=== PATIENT | female | born 1945 | race American Indian/Alaskan Native ===

== ENCOUNTER 2016-12-19 17:25 | Inpatient (IN) | payer MEDICARE ==
--- NOTE | 2016-12-19 17:34 | ED Physician Chart ---
Chief Complaint/HPI - Patient Information Date Seen:: 12/19/16 Time Seen:: 17:34 Chief Complaint:: low blood pressure History of Present Illness:: 71-year-old female history of CVA, brought in by daughter with acute, constant, severe, low blood pressure in the systolic 70s 2 days. Has some associated altered mental status. History limited patient has history of CVA and altered mental status and patient is an unreliable historian History provided by caregiver/daughter Historian:: Other (daughter/caregiver) Review:: Nurse's Note Reviewed Review of Systems - Review of Systems Other: Complete system review otherwise unremarkable except as noted in HPI. Past Medical History - Past Medical History Past Medical History: HTN, CVA/TIA Family History: None Social History: Non Smoker, No Alcohol, No Drug Use Surgical History: None Psychiatricy History: Dementia Medication: Reviewed Family Medical History - Family Member Mother Living Status: Hx Family Hypertension: Yes Physical Exam - Physical Examination Other:: INITIAL VITAL SIGNS: Reviewed by me GENERAL: Alert and interactive but confused. No acute distress HEAD: Head is normocephalic and atraumatic EYES: EOMI. . No scleral icterus. No conjunctival injection ENT: Moist mucous membranes. NECK: Supple. No masses. Full range of motion RESPIRATORY: No tachypnea. Clear breath sounds bilaterally. No wheezing, rales, or rhonchi CV: Regular rate and rhythm. No murmurs, rubs, or gallops ABDOMEN: Soft, non-distended, non-tender. No guarding. No rebound. No masses. EXTREMITIES: No deformity. No cyanosis. No edema. SKIN: Warm and dry. No obvious rashes. NEUROLOGIC: Alert and oriented. Face is symmetric. Speech is normal. Bilateral lower extremity semi- hemiplegia secondary with bilateral upper and lower gross sensory distally intact Labs/Radiology/EKG Results - Radiology Results Results: Single AP VIEW Portable Chest X-ray was interpreted independently and contemporaneously by Trisha Oswald MD: No cardiomegaly Normal mediastinum No lung infiltrates No pneumothorax No soft tissue or bony abnormalities - EKG Interpretations Comments:: 12-lead EKG Interpretation by Trisha Oswald MD: Normal Sinus Rhythm with ventricular rate of 82 beats per minute Normal axis Normal intervals No acute ST or T wave changes. No obvious STEMI ED Septic Shock - . Is Septic Shock (SBP<90, OR Lactate>4 mmol\L) present?: No Reassessment (Disposition) - Reassessment Reassessment:: Patient has severe dehydration. She has acute kidney failure. His leukocytosis and has been being treated for pneumonia however chest x-ray appears unremarkable. Given the patient's advanced age and core morbidities and discussed the case with the admitting physician about the dehydration and acute renal failure. She has a little associated altered level of consciousness. Patient to be admitted to Dr. Berger for further workup and treatment - Diagnosis Diagnosis:: Severe dehydration Acute renal failure Altered mental status Hypertension - Patient Disposition Discharge/Transfer:: Acute Care w/in this hosp Admitting Medical Physician:: Richar Berger Time:: 18:31 Condition at Disposition:: Stable
[2016-12-19] MEDS ORDERED: Sodium Chloride 0.9% 2,000 ML IV ONE (17:35)
[2016-12-19 18:05] LABS: HEMATOCRIT 35.4 % (35.0-45.0); HEMOGLOBIN 12.1 gm/dL (11.7-16.1); MEAN CELL VOLUME 84.6 fl (81-100); MEAN CORPUSCULAR HEMOGLOBIN 28.8 pg (27.0-31.0); MEAN PLATELET VOLUME 9.7 fl; PLATELET COUNT 136 Th/cmm (150-400); RED BLOOD COUNT 4.18 Mil/cmm (3.80-5.20); RED CELL DISTRIBUTION WIDTH 13.1 % (11.5-20.0)
[2016-12-19 18:16] LABS: INR 1.19 (0.5-1.4); PROTHROMBIN TIME (TEST) 12.5 SECONDS (9.5-11.5)
[2016-12-19 18:19] LABS: ALB/GLOB RATIO 0.8 (1.0-1.8); ALKALINE PHOSPHATASE 244 U/L (34-104); ANION GAP 12.7 (7.0-16.0); BILIRUBIN,TOTAL 0.4 mg/dL (0.3-1.0); BUN - UREA NITROGEN 79 mg/dL (7-25); BUN/CREATININE RATIO 25.5; CALCIUM SERUM 9.6 mg/dL (8.6-10.3); CARBON DIOXIDE 12.9 mEq/L (21.0-31.0); CHLORIDE 109 mEq/L (98-107); CREATININE - SERUM 3.1 mg/dL (0.6-1.2); GLUCOSE 112 mg/dL (70-105); POTASSIUM SERUM 4.6 mEq/L (3.5-5.1); SGOT 32 U/L (13-39); SGPT/ALT 38 U/L (7-52); SODIUM SERUM 130 mEq/L (136-145)
[2016-12-19] MEDS ORDERED: cefTRIAXone 1 GM in Sodium Chloride 0.9% 50 ML IV ONE (18:26)
[2016-12-19 18:29] LABS: NEUTROPHILS 71 % (40-80); TOTAL CELLS COUNTED 100
[2016-12-19 18:30] LABS: BAND NEUTROPHILE 2 % (0-10); PLATELET ESTIMATE SLIGHT DECREASED (NORMAL); PLATELET MORPHOLOGY GIANT PLATELETS SEEN (NORMAL)
[2016-12-19 19:01] LABS: URINE BILIRUBIN NEGATIVE (NEGATIVE); URINE BLOOD NEGATIVE (NEGATIVE); URINE COLOR YELLOW; URINE GLUCOSE (UA) NEGATIVE (NEGATIVE); URINE KETONE NEGATIVE (NEGATIVE); URINE PROTEIN 30 mg/dL (NEGATIVE); URINE UROBILINOGEN 0.2 E.U./dL (0.2 - 1.0)
[2016-12-19 19:02] LABS: URINE AMORPHOUS SEDIMENT MODERATE URATES (NONE SEEN); URINE BACTERIA FEW /hpf (NONE SEEN); URINE EPITHELIAL CELLS OCCASIONAL /lpf (FEW); URINE HYALINE CAST 0-2 /lpf (0-2); URINE RBC NONE SEEN /hpf (0-5); URINE WBC 0-2 /hpf (0-5)
[2016-12-19 20:37] VITALS: BP 99/53
[2016-12-19] MEDS ORDERED: Maalox 30 mL Cup PO PRN (20:43)
[2016-12-19] MEDS ORDERED: Magnesium Hydroxide (MOM) 30 mL UDC PO PRN (20:43)
[2016-12-19] MEDS ORDERED: Hydrocodone/APAP 5mg/325mg Tab PO PRN (20:43)
[2016-12-19] MEDS: D5-0.9%NS 1,000 ML IV SCH (21:27)
--- NOTE | 2016-12-19 21:48 | Admit Criteria Form ---
Admit Criteria Forms - Admit Criteria Diagnosis: DEHYDRATION Clinical Indications for Admission to Inpatient Care (Place 'X' for any and all applicable criteria): Admission is indicated for ANY ONE of the following (1)(2)(3)(4)(5): [X]I. Inpatient admission required rather than observation care (see Dehydration: Observation Care guideline as appropriate) because of ANY ONE of the following: [ ]a) Vomiting that is severe or persistent [X]b) Severe electrolyte abnormalities requiring inpatient care [ ]c) Hemodynamic instability [ ]d) IV fluid to replace significant ongoing losses (greater than 3 L/m2 per day (10) (11) [ ]e) Parenteral nutrition regimen that must be implemented on inpatient basis [X]f) Other condition,treatment or monitoring requiring inpatient admission [ ]II. Serious cause for dehydration requiring acute hospitalization (eg, bowel obstruction, increased intracranial pressure, infectious cause) Extended stay beyond goal length of stay may be needed for(1)(3 )(4)(17): [ ]a) Chronic severe dehydration [ ]b) Persistent vital sign changes, severe electrolyte imbalance, or diagnosed cause of dehydration that requires continued hospitalization (eg, bowel obstruction, increased intracranial pressure) [ ]c) Older patients (65 years or older) [ ]d) Severe comorbid illness (eg, renal failure, heart failure, poorly controlled diabetes) The original [employer] content created by [employer] has been revised. The portions of the content which have been revised are identified through the use of italic text or in bold, and [facility] has neither reviewed nor approved the modified material. All other unmodified content is copyright [facility]. Please see references footnoted in the original [facility] [employer] edition 2016 Admit Criteria Met?: Yes
--- NOTE | 2016-12-20 00:18 | History & Physical ---
CHIEF COMPLAINT: Low blood pressure. HISTORY OF PRESENT ILLNESS: The patient is a 71-year-old female who was referred to by our office. The patient brought to the ER by her daughter for acute constant severe low pressure within the systolics of 70s for last 2 days. The patient also has altered mental status. PAST MEDICAL HISTORY: Hypertension, CVA, dementia. PAST SURGICAL HISTORY: Negative. FAMILY HISTORY: Noncontributory. SOCIAL HISTORY: No reports of smoking, drinking or drug use. MEDICATIONS: See medication reconciliation form. ALLERGIES: No known allergies. PHYSICAL EXAMINATION: GENERAL: The patient is awake, alert, nontoxic in appearance. VITAL SIGNS: On admission, temperature 97.8, pulse of 80, blood pressure 93/55, respiration 17, O2 sat 97% on room air. HEENT: Normocephalic, atraumatic. Extraocular movements are intact. Pupils are equal. Oropharynx is clear. NECK: Supple. No thyromegaly. No lymphadenopathy. RESPIRATORY: Clear. No wheeze or rhonchi. CARDIOVASCULAR: S1, S2. No murmurs, rubs, or gallops. GASTROINTESTINAL: Soft, nontender, nondistended. Positive bowel sounds. GENITOURINARY: No suprapubic tenderness. Positive left CVA tenderness. BACK: No midline tenderness. EXTREMITIES: Equal pulses bilaterally. No cyanosis or clubbing. Positive contractures. PSYCHIATRIC: Negative. SKIN: Negative. NEUROLOGIC: Cranial nerves are intact. Extraocular movements intact. Sensation intact. Neurovascularly intact. The patient has semi-hemiplegia in bilateral lower extremities. LABORATORY DATA: Hematology: WBC 15.0, hemoglobin 12.1, hematocrit 35.4, platelet count of 136, 9% lymphocytes, 18% monocytes. PT 12.5, INR 1.19, PTT 36.3. Chemistry: Sodium 130, potassium 4.6, chloride 109, bicarbonate 12.9, anion gap 12.7, BUN 79, creatinine 3.1, GFR unavailable, glucose is 112. Lactic acid 1.13, calcium 9.6, total bilirubin 0.4, AST of 32, ALT 38, alkaline phosphatase 244, creatinine kinase 8, total protein 8.8, albumin 4.0, globulin 4.8. Urinalysis shows 30 protein and ____ hyaline casts. RADIOLOGY: No new results. ASSESSMENT: 1. Dehydration (severe). 2. Acute kidney injury. 3. Altered mental status. 4. Hypertension. 5. Leukocytosis. 6. Hyponatremia. 7. Hyperglycemia. 8. Transaminitis. 9. Cerebrovascular accident. 10. Dementia. PLAN: Continue current medications. Obtain labs in a.m. We will obtain Infectious Disease, Nephrology, Neurology, and physical therapy consultations. She is due for labs. Consultation needed. JOB# [id number]
[2016-12-20 07:36] LABS: ANION GAP 10.1 (7.0-16.0); BUN - UREA NITROGEN 60 mg/dL (7-25); BUN/CREATININE RATIO 28.6; CALCIUM SERUM 8.7 mg/dL (8.6-10.3); CARBON DIOXIDE 13.1 mEq/L (21.0-31.0); CHLORIDE 121 mEq/L (98-107); CREATININE - SERUM 2.1 mg/dL (0.6-1.2); GLUCOSE 130 mg/dL (70-105); POTASSIUM SERUM 4.2 mEq/L (3.5-5.1); SODIUM SERUM 140 mEq/L (136-145)
[2016-12-20 07:58] LABS: HEMOGLOBIN 10.3 gm/dL (11.7-16.1); MEAN CORPUSCULAR HEMOGLOBIN 28.7 pg (27.0-31.0); MEAN CORPUSCULAR HGB CONC 33.8 pg (28.0-36.0); MEAN PLATELET VOLUME 11.3 fl; PLATELET COUNT 114 Th/cmm (150-400); RED BLOOD COUNT 3.58 Mil/cmm (3.80-5.20); RED CELL DISTRIBUTION WIDTH 12.9 % (11.5-20.0)
[2016-12-20 08:43] LABS: HEMATOCRIT 30.4 % (35.0-45.0)
[2016-12-20] MEDS: D5-0.9%NS 1,000 ML IV SCH (08:45)
[2016-12-20 09:35] LABS: BAND NEUTROPHILE 6 % (0-10); NEUTROPHILS 55 % (40-80); PLATELET ESTIMATE DECREASED PLATELETS (NORMAL); PLATELET MORPHOLOGY GIANT PLATELETS SEEN (NORMAL); TOTAL CELLS COUNTED 100
--- NOTE | 2016-12-20 13:15 | Diagnostic Imaging Report ---
Portable chest x-ray History: Pain Allowing for portable technique the heart size is normal. No focal pulmonary parenchymal processes. No hilar or mediastinal abnormalities. Impression: No acute abnormalities.
--- NOTE | 2016-12-20 15:20 | Diagnostic Imaging Report ---
Renal ultrasound HISTORY: Abnormal renal function test The right kidney is normal in size (10.6 x 4.7 x 5.1 cm). No focal lesions. No hydronephrosis. The left kidney is normal in size (11.5 x 5.5 x 6.0 cm). No focal lesions. No hydronephrosis. No abnormality seen in the region of the urinary bladder. Patient was unable to void. (Volume equals 201.2 mL). IMPRESSION: 1. Negative exam of the kidneys 2. Patient was unable to void at the end of the examination with a urinary bladder volume of 201.2 mL.
--- NOTE | 2016-12-20 16:14 | Diagnostic Imaging Report ---
CT scan abdomen and pelvis without intravenous contrast HISTORY: Sepsis, abnormal renal function tests, fever Total DLP equals 508 CTDI equals 11.0 Axial sections were obtained from the xiphoid process down to the pubic symphysis. Limited sections of the lower chest demonstrate small bilateral pleural effusions The liver exhibits a normal size with a homogeneous parenchyma. No focal lesions. The spleen appears normal. No focal abnormality seen within the pancreas. Atherosclerotic vascular calcification is noted. Suggestion of a small aneurysm within the splenic hilar region. The adrenal glands appear normal. There is mild dilatation/hydronephrosis involving the right renal collecting system vascular calcification noted in the region of the renal hilum. The exam of the pelvis demonstrates preservation of normal fat planes. There is a normal size uterus. Hypodensity in the central region may be associated with an abnormal thickened endometrium. Clinical correlation needed. A pelvic ultrasound may be helpful. In addition, 1.0 cm focus is noted along the anterior uterine wall possibly related to fibroid formation. There are multiple calcifications within the pelvis. These appear to lie outside of the urinary tract and are most likely vascular. The largest measures proximally 9 mm and is situated in the right adnexal area. Again this appears to lie outside the urinary tract. If clinically indicated, a CT scan with intravenous contrast would provide for further assessment of the relationship to the distal right ureter. No free fluid in the pelvis. IMPRESSION: 1. Mild right-sided hydronephrosis. Etiology uncertain. Several small calcifications seen in the pelvis. The largest measures 9 mm and is situated in the right adnexal area. These appear to lie outside of the urinary tract. However, if clinically indicated, a scan following administration of intravenous contrast would provide further assessment of the relationship to the right ureter and more definitive exclusion of a calculus. 2. Atherosclerotic vascular changes 3. Hypodensity within a normal sized uterus that may be related to an abnormal thickened endometrium. A pelvic ultrasound exam would provide further assessment. 4. Suggestion of fibroid formation 5. Small bilateral pleural effusions
--- NOTE | 2016-12-20 16:52 | Consultation ---
ATTENDING: Richar Berger M.D. TRAVEL PHYSICAL THERAPIST: Alonso Smith M.D. REASON FOR CONSULTATION: Electrolyte imbalance and fluid management. HISTORY OF PRESENT ILLNESS: This is a 71-year-old female with past medical history of hypertension, who came in because of weakness and drowsiness. Two days prior to admission, the patient vomited twice. This was associated with watery diarrhea. She was noted by her daughter to have altered level of consciousness, generalized weakness and also hypotension. She was not able to eat or drink fluids and unable to replenish her sensible and insensible fluid losses. A few hours prior to admission, her daughter noted her to have low blood pressure. She then brought her mother to the Emergency Room. Her blood pressure at the Emergency Room was 93/54. Chest x-ray showed no acute disease but a white count of 15. She denied any kidney problem in the past. She came in with a BUN/creatinine of 79/3.1. She was maintained on IV fluids during this admission. Her BUN/creatinine then improved to 60/2.1. As mentioned, she was maintained on IV fluids and her BUN/creatinine improved to 60/2.1. She admitted to being thirsty. She denied any abdominal pain, fever/chills, dysuria, no hematuria. She stated that she has about 2-3 UTIs per year. PAST MEDICAL HISTORY: 1. Essential hypertension. 2. CVA without any residual effect. 3. Alzheimer dementia. PAST SURGICAL HISTORY: Status post cholecystectomy. CURRENT MEDICATIONS: She is currently on acetaminophen, [place], lorazepam, magnesium hydroxide, ondansetron, Rocephin, trazodone. ALLERGIES: No known drug allergies. SOCIAL HISTORY: No history of alcohol or tobacco use. 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 FAMILY HISTORY: Significant for diabetes in both her mother and father. REVIEW OF SYSTEMS: GENERAL: She came in complaining of generalized weakness. Appetite had also deteriorated. However, no fever, no chills. HEENT: Denied any headaches, no dizziness. Wears glasses due to poor vision. Visual acuity is also diminished due to age. CARDIORESPIRATORY: No chest pain, palpitations, diaphoresis or cough. She has a history of hypertension. GASTROINTESTINAL: She did have some nausea and vomiting twice. No abdominal pain, no melena, hematochezia. She did have watery diarrhea. ENDOCRINE: No history of diabetes or thyroid abnormalities. No dyslipidemia. MUSCULOSKELETAL: Multiple joint arthralgias. GENITOURINARY: No history of kidney failure in the past. However, she comes now with acute kidney injury. She did have frequent UTIs, approximately 2-3 per year. HEMATOLOGIC: She has moderate anemia. NEUROPSYCHIATRIC: No syncopal episode nor seizure activity. However, she did have altered level of consciousness per patient. No depression or anxiety. No seizure activity. No neuropathy. PHYSICAL EXAMINATION: GENERAL: The patient is alert, verbal, not in any form of distress. VITAL SIGNS: Her blood pressure is 108/51, pulse 80, temperature 97.8 degrees. SKIN: Poor turgor and warm. No rash, no jaundice appreciated. HEENT: Head normocephalic, atraumatic. Eyes: Extraocular muscles intact. Pupils equal, round, reactive to light and accommodates. Anicteric sclerae. Webb conjunctivae. Nose, midline nasal septum. Mouth: Dry mucosa with good dentition. NECK: Supple, no adenopathy, no thyromegaly, no bruits. Trachea palpated in the midline. CHEST AND CARDIOVASCULAR: S1, S2. No rub, murmur nor gallop appreciated. Point of maximal impulse fifth intercostal space, left midclavicular line. No abdominal or femoral bruits appreciated. LUNGS: Equal expansion. No use of accessory muscles. No supraclavicular retractions. Decreased breath sounds but clear to auscultation without any wheeze. BREASTS: Symmetrical, without any discharge. ABDOMEN: Flat, soft. Positive for bowel sounds. No bruits either diastolic or systolic. RECTAL: The patient refused. GENITOURINARY: Normal appearing female genitalia. MUSCULOSKELETAL: No effusions present in her joints with limited range of motion. No evidence of edema, cyanosis, no clubbing with palpable femoral, popliteal, dorsalis pedis pulses. NEUROLOGIC: The patient is alert, verbal, motor is 5/5. Cranial nerves 2-12 intact. Sensory intact. LABORATORY DATA: White count 12, hemoglobin 10.3, hematocrit 30.4 polys is 85%, platelets 114. Sodium is 140, potassium 4.2, chloride is 121, bicarbonate is 13, BUN is 60, creatinine at 2.1, glucose is 130, calcium 8.7. Albumin 4.0. IMPRESSION: 1. Acute kidney injury. The patient initially had prerenal azotemia. She had a history of nausea and vomiting twice as well as watery diarrhea. She was not able to replenish her fluid losses. There was a decrease in effective circulating volume, which led to progression of acute kidney injury to acute tubular injury. 2. History of diarrhea with nausea and vomiting, altered level of consciousness, and hypotension, possibly secondary to dehydration. 3. Recurrent urinary tract infection. 4. Alzheimer dementia. 5. History of cerebrovascular accident without residual effect. 6. Thrombocythemia, possibly medication induced, doubt disseminated intravascular coagulation. 7. ____ metabolic acidosis, possibly from diarrhea. PLAN: 1. Continue with IV fluids. 2. Urinalysis, urine C and S. 3. Urine eosinophils, creatinine and sodium. 4. Renal ultrasound. 5. Follow up electrolytes. 6. Continue with Rocephin. Thank you Dr. Berger for this consult, and I will follow the patient closely with you. JOB# [id number]
[2016-12-21 06:44] LABS: HEMATOCRIT 29.8 % (35.0-45.0); HEMOGLOBIN 10.3 gm/dL (11.7-16.1); MEAN CELL VOLUME 85.1 fl (81-100); MEAN CORPUSCULAR HEMOGLOBIN 29.4 pg (27.0-31.0); MEAN CORPUSCULAR HGB CONC 34.6 pg (28.0-36.0); MEAN PLATELET VOLUME 10.2 fl; PLATELET COUNT 113 Th/cmm (150-400); RED CELL DISTRIBUTION WIDTH 12.9 % (11.5-20.0)
[2016-12-21 07:06] LABS: ALB/GLOB RATIO 0.8 (1.0-1.8); ALKALINE PHOSPHATASE 166 U/L (34-104); ANION GAP 8.5 (7.0-16.0); BILIRUBIN,TOTAL 0.3 mg/dL (0.3-1.0); BUN - UREA NITROGEN 37 mg/dL (7-25); BUN/CREATININE RATIO 26.4; CALCIUM SERUM 8.7 mg/dL (8.6-10.3); CARBON DIOXIDE 13.8 mEq/L (21.0-31.0); CHLORIDE 119 mEq/L (98-107); CREATININE - SERUM 1.4 mg/dL (0.6-1.2); GLUCOSE 107 mg/dL (70-105); POTASSIUM SERUM 4.3 mEq/L (3.5-5.1); SGOT 16 U/L (13-39); SGPT/ALT 24 U/L (7-52); SODIUM SERUM 137 mEq/L (136-145)
[2016-12-21 07:49] LABS: WHITE BLOOD COUNT 13.2 Th/cmm (4.8-10.8)
[2016-12-21 08:14] LABS: BAND NEUTROPHILE 4 % (0-10); EOSINOPHIL 1 % (0-5); METAMYELOCYTE 1 % (0-0); NEUTROPHILS 58 % (40-80); TOTAL CELLS COUNTED 100
[2016-12-21 08:15] LABS: PLATELET ESTIMATE DECREASED PLATELETS (NORMAL)
[2016-12-21 08:16] LABS: PLATELET MORPHOLOGY GIANT PLATELETS SEEN (NORMAL)
--- NOTE | 2016-12-21 10:25 | Progress Notes ---
SUBJECTIVE: The patient is on IV antibiotics. The patient is on IV fluids. OBJECTIVE: VITAL SIGNS: Temperature 98.1, pulse 68, blood pressure 118/54, respiratory rate 18, O2 sat 94%. CARDIOVASCULAR: S1, S2. RESPIRATORY: Clear. GASTROINTESTINAL: Soft, positive bowel sounds. LABORATORY DATA: Hematology, WBC 12.0, hemoglobin 10.3, hematocrit 30.4, platelet count 114, 9% lymphocyte. ESR 51. Chemistry, sodium 140, potassium 4.2, chloride per labs, carbon dioxide 13.1, anion gap per labs, BUN 60, creatinine 2.1, glucose was 130, calcium 8.7. Urine sodium is 1, urine creatinine per labs. MICROBIOLOGY: Blood culture from December 19 pending. RADIOLOGY: Renal ultrasound shows negative exam of kidneys. The patient voided and examination with the urine, bladder volume 21.2. Abdominal and pelvic CT shows mild right-sided hydronephrosis, several small calcifications seen in pelvis, hypodensity with normal-sized uterus more thickened endometrium especially of fibroid formations. ASSESSMENT: 1. Leukocytosis and anemia. 2. Thrombocytopenia. 3. Acute kidney injury. 4. Hyperglycemia. 5. Hypertension. 6. Transaminitis, 7. Cerebrovascular accident. 8. Dementia. 9. Right-sided hydronephrosis. 10. Nephrolithiasis. 12. Possible fibroid. 13. Bilateral pleural effusions. PLAN: Continue current medications and treatment. Obtain labs in a.m. Awaiting for culture results. We will obtain CT abdomen with IV contrast. We will obtain pelvic ultrasound. JOB# [id number] [facility]
--- NOTE | 2016-12-21 11:29 | Diagnostic Imaging Report ---
Ultrasound abdomen HISTORY: Fever, status post cholecystectomy COMPARISON: CT abdomen and pelvis on 12/20/2016 Technique: Sonography of the abdomen was performed in multiple planes. FINDINGS: Exam is limited due to bowel gas. The visualized portions of the pancreas are grossly unremarkable. The visualized portions of the abdominal aorta within normal limits in size. The liver demonstrates normal echogenicity and measures 16.8 cm. The gallbladder was not visualized. The common bile duct measures 1 cm. The right kidney measures 10.6 x 4.6 cm. The left kidney measures 11.8 x 5.1 cm. No evidence of focal lesions or hydronephrosis. The spleen measures 8.9 cm. IMPRESSION: Nonvisualization of the gallbladder compatible with clinical history of cholecystectomy. Prominent common bile duct measuring up to 1 cm which may be related to patient's history of cholecystectomy. No evidence of hydronephrosis.
--- NOTE | 2016-12-21 14:10 | General Progress Note ---
Subjective - Review of Systems Service Date: 12/21/16 Subjective: more alert, eating better Objective - Results Result Diagrams: 12/21/16 05:44 12/21/16 05:50 Recent Labs: Laboratory Last Values WBC 13.2 Th/cmm (4.8-10.8) H 12/21/16 05:44 RBC 3.50 Mil/cmm (3.80-5.20) L 12/21/16 05:44 Hgb 10.3 gm/dL (11.7-16.1) L 12/21/16 05:44 Hct 29.8 % (35.0-45.0) L 12/21/16 05:44 MCV 85.1 fl (81-100) 12/21/16 05:44 MCH 29.4 pg (27.0-31.0) 12/21/16 05:44 MCHC Differential 34.6 pg (28.0-36.0) 12/21/16 05:44 RDW 12.9 % (11.5-20.0) 12/21/16 05:44 Plt Count 113 Th/cmm (150-400) L 12/21/16 05:44 MPV 10.2 fl 12/21/16 05:44 Band Neutrophils % 4 % (0-10) 12/21/16 05:44 Neutrophils (Manual) 58 % (40-80) 12/21/16 05:44 Lymphocytes 8 % (20-50) L 12/21/16 05:44 Monocytes 28 % (2-10) H 12/21/16 05:44 Eosinophils 1 % (0-5) 12/21/16 05:44 Metamyelocytes 1 % (0-0) H 12/21/16 05:44 Platelet Estimate DECREASED PLATELETS (NORMAL) 12/21/16 05:44 Platelet Morphology GIANT PLATELETS SEEN (NORMAL) 12/21/16 05:44 RBC Morph Micro Appear NORMAL (NORMAL) 12/21/16 05:44 ESR 54 mm/hr (0-30) H 12/21/16 05:44 Eos Smear Source URINE 12/20/16 17:00 Eos Smear Total Cells NONE SEEN (NONE SEEN) 12/20/16 17:00 PT 12.5 SECONDS (9.5-11.5) H 12/19/16 17:44 INR 1.19 (0.5-1.4) 12/19/16 17:44 PTT (Actin FS) 36.3 SECONDS (26.0-38.0) 12/19/16 17:44 Sodium 137 mEq/L (136-145) 12/21/16 05:50 Potassium 4.3 mEq/L (3.5-5.1) 12/21/16 05:50 Chloride 119 mEq/L (98-107) H 12/21/16 05:50 Carbon Dioxide 13.8 mEq/L (21.0-31.0) L 12/21/16 05:50 Anion Gap 8.5 (7.0-16.0) 12/21/16 05:50 BUN 37 mg/dL (7-25) H 12/21/16 05:50 Creatinine 1.4 mg/dL (0.6-1.2) H 12/21/16 05:50 Est GFR ( Amer) TNP 12/21/16 05:50 Est GFR (Non-Af Amer) TNP 12/21/16 05:50 BUN/Creatinine Ratio 26.4 12/21/16 05:50 Glucose 107 mg/dL (70-105) H 12/21/16 05:50 Whole Bld Lactic Acid 1.13 mmol/L (0.60-1.99) 12/19/16 17:44 Uric Acid 9.0 mg/dL (2.3-6.6) H 12/21/16 05:50 Calcium 8.7 mg/dL (8.6-10.3) 12/21/16 05:50 Total Bilirubin 0.3 mg/dL (0.3-1.0) 12/21/16 05:50 AST 16 U/L (13-39) 12/21/16 05:50 ALT 24 U/L (7-52) 12/21/16 05:50 Alkaline Phosphatase 166 U/L (34-104) H 12/21/16 05:50 Creatine Kinase 8 U/L (30-223) L 12/19/16 17:44 C-Reactive Protein 0.4 mg/dL (0.0-0.9) 12/20/16 06:05 Total Protein 7.1 gm/dL (6.0-8.3) 12/21/16 05:50 Albumin 3.2 gm/dL (3.7-5.3) L 12/21/16 05:50 Globulin 3.9 gm/dL 12/21/16 05:50 Albumin/Globulin Ratio 0.8 (1.0-1.8) L 12/21/16 05:50 Urine Source CATH 12/19/16 18:40 Urine Color YELLOW 12/19/16 18:40 Urine Clarity HAZY (CLEAR) 12/19/16 18:40 Urine pH 5.0 12/19/16 18:40 Ur Specific [place] 1.020 (1.005-1.030) 12/19/16 18:40 Urine Protein 30 mg/dL (NEGATIVE) H 12/19/16 18:40 Urine Glucose (UA) NEGATIVE mg/dL (NEGATIVE) 12/19/16 18:40 Urine Ketones NEGATIVE mg/dL (NEGATIVE) 12/19/16 18:40 Urine Blood NEGATIVE (NEGATIVE) 12/19/16 18:40 Urine Nitrate NEGATIVE (NEGATIVE) 12/19/16 18:40 Urine Bilirubin NEGATIVE (NEGATIVE) 12/19/16 18:40 Urine Urobilinogen 0.2 E.U./dL (0.2 - 1.0) 12/19/16 18:40 Ur Leukocyte Esterase NEGATIVE (NEGATIVE) 12/19/16 18:40 Urine RBC NONE SEEN /hpf (0-5) 12/19/16 18:40 Urine WBC 0-2 /hpf (0-5) 12/19/16 18:40 Ur Epithelial Cells OCCASIONAL /lpf (FEW) 12/19/16 18:40 Amorphous Sediment MODERATE URATES (NONE SEEN) 12/19/16 18:40 Urine Bacteria FEW /hpf (NONE SEEN) 12/19/16 18:40 Hyaline Casts 0-2 /lpf (0-2) H 12/19/16 18:40 Ur Random Sodium 101 mmol/L 12/20/16 17:00 Urine Creatinine 53.0 mg/dl (28.0-217.0) 12/20/16 17:00 - Physical Exam Vitals and I&O: Vital Signs Temp 98.2 F 12/21/16 04:00 Pulse 71 12/21/16 04:00 Resp 17 12/21/16 08:00 BP 108/66 12/21/16 04:00 Pulse Ox 96 12/21/16 04:00 Intake & Output 12/20/16 12/21/16 12/21/16 18:59 06:59 18:59 Intake Total 1050 150 100 Output Total 1 Balance 1050 149 100 Intake: Intake, IV Amount 1050 100 50 D5-0.9%Ns 1,000 ml @ 100 1000 mls/hr IV .Q10H [facility] Rx#: [id number] Piperacillin Sodium/ 50 100 50 Tazobact 3.375 gm In Sodium Chloride 0.9% 50 ml @ 100 mls/hr IV Q6HR [facility] Rx#:[id number] Oral 50 50 Output: Stool 1 Other: # Voids 1 3 # Bowel Movements 1 1 Active Medications: Current Medications Acetaminophen (Tylenol) 650 mg PO Q6H PRN PRN Reason: Mild Pain/Headache/T above 101 Stop: 02/17/17 20:42 Last Admin: 12/19/16 21:46 Dose: 650 mg Acetaminophen/Hydrocodone Bitart ([place] 10 Mg/325 Mg) 1 tab PO Q6H PRN PRN Reason: Pain (Severe) Stop: 02/17/17 20:42 Acetaminophen/Hydrocodone Bitart ([place] 5mg/325mg) 1 tab PO Q6H PRN PRN Reason: Moderate Pain Stop: 02/17/17 20:42 Last Admin: 12/19/16 23:17 Dose: 1 tab Al Hydrox/Mg Hydrox/Simethicone (Maalox) 30 ml PO Q6H PRN PRN Reason: Constipation Stop: 02/17/17 20:42 Dextrose/Sodium Chloride (D5-0.9%Ns) 1,000 mls @ 100 mls/hr IV .Q10H [facility] Stop: 02/17/17 20:59 Last Admin: 12/20/16 08:45 Dose: 100 mls/hr Piperacillin Sod/Tazobactam (Sod 3.375 gm/ Sodium Chloride) 50 mls @ 100 mls/ hr IV Q6HR [facility] Stop: 02/18/17 17:59 Last Infusion: 12/21/16 13:42 Dose: Infused Lorazepam (Ativan) 1 mg PO Q6H PRN; Protocol PRN Reason: Anxiety/Agitation Stop: 02/17/17 20:42 Magnesium Hydroxide (Milk Of Magnesia) 30 ml PO HS PRN PRN Reason: Constipation Stop: 02/17/17 20:42 Miscellaneous (Clinical Monitoring) 1 ea MC DAILY PRN PRN Reason: RENAL Stop: 02/18/17 09:26 Ondansetron HCl (Zofran Odt) 4 mg PO Q6H PRN PRN Reason: Nausea / Vomiting Stop: 02/17/17 20:42 Trazodone HCl (Desyrel) 100 mg PO HS PRN; Protocol PRN Reason: Insomnia Stop: 02/17/17 20:59 General: Alert, No acute distress HEENT: Atraumatic, Mucous membr. moist/pink Neck: Supple, +2 carotid pulse wo bruit Cardiovascular: Regular rate, Normal S1, Normal S2 Lungs: Clear to auscultation Abdomen: Bowel sounds, Soft Extremities: no Edema Neurological: Normal speech, Normal tone, Sensation intact Skin: no Rash Psych/Mental Status: Mood NL Assessment/Plan - Problem List Patient Problems: All Active Problems HYPOTENSIVE EPISODE AT HOME (Acute) - Assessment Assessment: TESSY Dehydration FTT recurrent UTI Alzheimer Dementia S/P CVA no residual Non gap Met acid Thrombocytopenia - Plan Plan: Lab - Result Diagrams 12/21/16 05:44 12/21/16 05:50 Current Medications Acetaminophen (Tylenol) 650 mg PO Q6H PRN PRN Reason: Mild Pain/Headache/T above 101 Stop: 02/17/17 20:42 Last Admin: 12/19/16 21:46 Dose: 650 mg Acetaminophen/Hydrocodone Bitart ([place] 10 Mg/325 Mg) 1 tab PO Q6H PRN PRN Reason: Pain (Severe) Stop: 02/17/17 20:42 Acetaminophen/Hydrocodone Bitart ([place] 5mg/325mg) 1 tab PO Q6H PRN PRN Reason: Moderate Pain Stop: 02/17/17 20:42 Last Admin: 12/19/16 23:17 Dose: 1 tab Al Hydrox/Mg Hydrox/Simethicone (Maalox) 30 ml PO Q6H PRN PRN Reason: Constipation Stop: 02/17/17 20:42 Dextrose/Sodium Chloride (D5-0.9%Ns) 1,000 mls @ 100 mls/hr IV .Q10H [facility] Stop: 02/17/17 20:59 Last Admin: 12/20/16 08:45 Dose: 100 mls/hr Piperacillin Sod/Tazobactam (Sod 3.375 gm/ Sodium Chloride) 50 mls @ 100 mls/ hr IV Q6HR [facility] Stop: 02/18/17 17:59 Last Infusion: 12/21/16 13:42 Dose: Infused Lorazepam (Ativan) 1 mg PO Q6H PRN; Protocol PRN Reason: Anxiety/Agitation Stop: 02/17/17 20:42 Magnesium Hydroxide (Milk Of Magnesia) 30 ml PO HS PRN PRN Reason: Constipation Stop: 02/17/17 20:42 Miscellaneous (Clinical Monitoring) 1 ea MC DAILY PRN PRN Reason: RENAL Stop: 02/18/17 09:26 Ondansetron HCl (Zofran Odt) 4 mg PO Q6H PRN PRN Reason: Nausea / Vomiting Stop: 02/17/17 20:42 Trazodone HCl (Desyrel) 100 mg PO HS PRN; Protocol PRN Reason: Insomnia Stop: 02/17/17 20:59 kidney fnc gradually improving w/BUN/CR of 37/1.4 continue hydration per staff eating 50% of meals encouraged po intake
--- NOTE | 2016-12-21 22:35 | Consultation ---
PRIMARY CARE PHYSICIAN: Dr. Richar Berger. REASON FOR CONSULTATION: Leukocytosis. This 71-year-old female was brought to the Emergency Room on the 12/19/2016, with complaint of low blood pressure for 48 hours. HISTORY OF PRESENT ILLNESS: The patient was found to have low blood pressure and the patient became very lethargic. The patient was seen in the ER and admitted to the hospital. Workup shows leukocytosis with increased renal failure. The patient was seen by renal and also because of leukocytosis, infectious consultation was called. PAST MEDICAL HISTORY: Hypertension and CVA. FAMILY HISTORY: Negative. REVIEW OF SYSTEMS: A 14-point review of systems negative except above. SOCIAL HISTORY: Nonsmoker. PHYSICAL EXAMINATION: GENERAL: The patient is alert and awake with the family. VITAL SIGNS: Temperature is 98, pulse 90, respirations 18 and blood pressure 99/53. HEENT: Mild pallor. No icterus or plaque. NECK: Supple. No JVD. No thyromegaly. LUNGS: Breath sounds bilateral vesicular. CARDIOVASCULAR: S1 and S2. ABDOMEN: Soft. Bowel sounds present. LYMPHATICS: No thyroid. No cervical lymph nodes. LABORATORY DATA: White count on admission was 15,000 and hemoglobin 12 grams. Creatinine 3.1. UA: A 0-2 wbc's and bacteria present. DIAGNOSES: Leukocytosis, urinary tract infection, renal failure, [id number], hypertension and history of cerebrovascular accident. PLAN: The patient started on Zosyn. Repeat labs tomorrow. Supportive care. Restart home medication except for antihypertensive. Rest of the care as ordered in CPOE. Thank you, Dr. Berger for this consultation. JOB# [id number]
[2016-12-21] MEDS: D5-0.9%NS 1,000 ML IV SCH (23:39)
[2016-12-22 07:48] LABS: ANION GAP 9.6 (7.0-16.0); BUN - UREA NITROGEN 22 mg/dL (7-25); BUN/CREATININE RATIO 16.9; CALCIUM SERUM 8.4 mg/dL (8.6-10.3); CHLORIDE 118 mEq/L (98-107); CREATININE - SERUM 1.3 mg/dL (0.6-1.2); GLUCOSE 111 mg/dL (70-105); MAGNESIUM 1.5 mg/dL (1.9-2.7); PHOSPHOROUS 3.1 mg/dL (2.5-5.0); POTASSIUM SERUM 3.6 mEq/L (3.5-5.1); SODIUM SERUM 139 mEq/L (136-145)
[2016-12-22 08:02] LABS: HEMOGLOBIN 10.2 gm/dL (11.7-16.1)
[2016-12-22 08:05] LABS: HEMATOCRIT 29.3 % (35.0-45.0); MEAN CELL VOLUME 85.1 fl (81-100); MEAN CORPUSCULAR HEMOGLOBIN 29.7 pg (27.0-31.0); MEAN CORPUSCULAR HGB CONC 34.9 pg (28.0-36.0); MEAN PLATELET VOLUME 10.3 fl; PLATELET COUNT 100 Th/cmm (150-400); RED BLOOD COUNT 3.44 Mil/cmm (3.80-5.20); RED CELL DISTRIBUTION WIDTH 13.1 % (11.5-20.0)
[2016-12-22 08:26] LABS: WHITE BLOOD COUNT 16.7 Th/cmm (4.8-10.8)
[2016-12-22 08:39] LABS: BAND NEUTROPHILE 5 % (0-10); EOSINOPHIL 1 % (0-5); NEUTROPHILS 61 % (40-80); PLATELET ESTIMATE DECREASED PLATELETS (NORMAL); TOTAL CELLS COUNTED 100
[2016-12-22 08:40] LABS: PLATELET MORPHOLOGY GIANT PLATELETS SEEN (NORMAL)
--- NOTE | 2016-12-22 10:07 | Progress Notes ---
SUBJECTIVE: The patient is on IV antibiotics. The patient is on IV fluids. The patient receiving inpatient rehab therapy. PHYSICAL EXAMINATION: VITAL SIGNS: Temperature 97.9, pulse 69, blood pressure 120/68, respirations 18 and O2 saturation is 100% on room air. CARDIOVASCULAR: S1 and S2. RESPIRATORY: Clear. GASTROINTESTINAL: Soft. Positive bowel sounds. LABORATORY DATA: Hematology: WBC 13.2, hemoglobin 10.3, hematocrit 28.8, platelet count of 113, 8% lymphocytes and 28% monocytes. ESR is 54. Chemistry: Sodium 137, potassium 4.3, chloride 119, bicarbonate 30.8, anion gap 8.5, BUN 37, creatinine 0.4 and GFR unavailable, glucose 107 and calcium 8.7. Total bili 0.3, AST 16, ALT 24, alkaline phosphatase 166, total protein 7.1, albumin 3.2 and globulin 3.9. MICROBIOLOGY: Blood culture from December 19, shows no growth. MRSA screen from December 21 negative. RADIOLOGY: Abdominal ultrasound: No evidence of hydronephrosis. ASSESSMENT: 1. Leukocytosis. 2. Anemia. 3. Thrombocytopenia. 4. Acute kidney injury. 5. Hyperglycemia. 6. Hyperuricemia. 7. Hypoalbuminemia. 8. Hypertension. 9. Cerebrovascular accident. 10. Dementia. PLAN: Continue current medications and treatment. Obtain labs in a.m. Awaiting final culture results. Obtain Infectious Disease consultation. JOB# [id number]
--- NOTE | 2016-12-22 13:54 | General Progress Note ---
Subjective - Review of Systems Service Date: 12/22/16 Subjective: more alert, eating better per staff Objective - Results Result Diagrams: 12/22/16 06:40 12/22/16 06:40 Recent Labs: Laboratory Last Values WBC 16.7 Th/cmm (4.8-10.8) H D 12/22/16 06:40 RBC 3.44 Mil/cmm (3.80-5.20) L 12/22/16 06:40 Hgb 10.2 gm/dL (11.7-16.1) L 12/22/16 06:40 Hct 29.3 % (35.0-45.0) L 12/22/16 06:40 MCV 85.1 fl (81-100) 12/22/16 06:40 MCH 29.7 pg (27.0-31.0) 12/22/16 06:40 MCHC Differential 34.9 pg (28.0-36.0) 12/22/16 06:40 RDW 13.1 % (11.5-20.0) 12/22/16 06:40 Plt Count 100 Th/cmm (150-400) L 12/22/16 06:40 MPV 10.3 fl 12/22/16 06:40 Band Neutrophils % 5 % (0-10) 12/22/16 06:40 Neutrophils (Manual) 61 % (40-80) 12/22/16 06:40 Lymphocytes 8 % (20-50) L 12/22/16 06:40 Monocytes 25 % (2-10) H 12/22/16 06:40 Eosinophils 1 % (0-5) 12/22/16 06:40 Metamyelocytes 1 % (0-0) H 12/21/16 05:44 Platelet Estimate DECREASED PLATELETS (NORMAL) 12/22/16 06:40 Platelet Morphology GIANT PLATELETS SEEN (NORMAL) 12/22/16 06:40 RBC Morph Micro Appear NORMAL (NORMAL) 12/22/16 06:40 ESR 61 mm/hr (0-30) H 12/22/16 06:40 Eos Smear Source URINE 12/20/16 17:00 Eos Smear Total Cells NONE SEEN (NONE SEEN) 12/20/16 17:00 PT 12.5 SECONDS (9.5-11.5) H 12/19/16 17:44 INR 1.19 (0.5-1.4) 12/19/16 17:44 PTT (Actin FS) 36.3 SECONDS (26.0-38.0) 12/19/16 17:44 Sodium 139 mEq/L (136-145) 12/22/16 06:40 Potassium 3.6 mEq/L (3.5-5.1) 12/22/16 06:40 Chloride 118 mEq/L (98-107) H 12/22/16 06:40 Carbon Dioxide 15.0 mEq/L (21.0-31.0) L 12/22/16 06:40 Anion Gap 9.6 (7.0-16.0) 12/22/16 06:40 BUN 22 mg/dL (7-25) 12/22/16 06:40 Creatinine 1.3 mg/dL (0.6-1.2) H 12/22/16 06:40 Est GFR ( Amer) TNP 12/22/16 06:40 Est GFR (Non-Af Amer) TNP 12/22/16 06:40 BUN/Creatinine Ratio 16.9 12/22/16 06:40 Glucose 111 mg/dL (70-105) H 12/22/16 06:40 Whole Bld Lactic Acid 1.13 mmol/L (0.60-1.99) 12/19/16 17:44 Uric Acid 9.0 mg/dL (2.3-6.6) H 12/21/16 05:50 Calcium 8.4 mg/dL (8.6-10.3) L 12/22/16 06:40 Phosphorus 3.1 mg/dL (2.5-5.0) 12/22/16 06:40 Magnesium 1.5 mg/dL (1.9-2.7) L 12/22/16 06:40 Total Bilirubin 0.3 mg/dL (0.3-1.0) 12/21/16 05:50 AST 16 U/L (13-39) 12/21/16 05:50 ALT 24 U/L (7-52) 12/21/16 05:50 Alkaline Phosphatase 166 U/L (34-104) H 12/21/16 05:50 Creatine Kinase 8 U/L (30-223) L 12/19/16 17:44 C-Reactive Protein 0.5 mg/dL (0.0-0.9) 12/22/16 06:40 Total Protein 7.1 gm/dL (6.0-8.3) 12/21/16 05:50 Albumin 3.2 gm/dL (3.7-5.3) L 12/21/16 05:50 Globulin 3.9 gm/dL 12/21/16 05:50 Albumin/Globulin Ratio 0.8 (1.0-1.8) L 12/21/16 05:50 Urine Source CATH 12/19/16 18:40 Urine Color YELLOW 12/19/16 18:40 Urine Clarity HAZY (CLEAR) 12/19/16 18:40 Urine pH 5.0 12/19/16 18:40 Ur Specific [place] 1.020 (1.005-1.030) 12/19/16 18:40 Urine Protein 30 mg/dL (NEGATIVE) H 12/19/16 18:40 Urine Glucose (UA) NEGATIVE mg/dL (NEGATIVE) 12/19/16 18:40 Urine Ketones NEGATIVE mg/dL (NEGATIVE) 12/19/16 18:40 Urine Blood NEGATIVE (NEGATIVE) 12/19/16 18:40 Urine Nitrate NEGATIVE (NEGATIVE) 12/19/16 18:40 Urine Bilirubin NEGATIVE (NEGATIVE) 12/19/16 18:40 Urine Urobilinogen 0.2 E.U./dL (0.2 - 1.0) 12/19/16 18:40 Ur Leukocyte Esterase NEGATIVE (NEGATIVE) 12/19/16 18:40 Urine RBC NONE SEEN /hpf (0-5) 12/19/16 18:40 Urine WBC 0-2 /hpf (0-5) 12/19/16 18:40 Ur Epithelial Cells OCCASIONAL /lpf (FEW) 12/19/16 18:40 Amorphous Sediment MODERATE URATES (NONE SEEN) 12/19/16 18:40 Urine Bacteria FEW /hpf (NONE SEEN) 12/19/16 18:40 Hyaline Casts 0-2 /lpf (0-2) H 12/19/16 18:40 Ur Random Sodium 101 mmol/L 12/20/16 17:00 Urine Creatinine 53.0 mg/dl (28.0-217.0) 12/20/16 17:00 - Physical Exam Vitals and I&O: Vital Signs Temp 97.5 F 12/22/16 12:00 Pulse 80 12/22/16 12:00 Resp 20 12/22/16 12:00 BP 116/58 12/22/16 12:00 Pulse Ox 96 12/22/16 12:00 Intake & Output 12/21/16 12/22/16 12/22/16 18:59 06:59 18:59 Intake Total 600 340 Balance 600 340 Intake: Intake, IV Amount 100 100 Piperacillin Sodium/ 100 100 Tazobact 3.375 gm In Sodium Chloride 0.9% 50 ml @ 100 mls/hr IV Q6HR [facility] Rx#:[id number] Oral 500 240 Other: # Voids 3 3 # Bowel Movements 1 Stool Characteristics Soft Active Medications: Current Medications Acetaminophen (Tylenol) 650 mg PO Q6H PRN PRN Reason: Mild Pain/Headache/T above 101 Stop: 02/17/17 20:42 Last Admin: 12/19/16 21:46 Dose: 650 mg Acetaminophen/Hydrocodone Bitart ([place] 10 Mg/325 Mg) 1 tab PO Q6H PRN PRN Reason: Pain (Severe) Stop: 02/17/17 20:42 Acetaminophen/Hydrocodone Bitart ([place] 5mg/325mg) 1 tab PO Q6H PRN PRN Reason: Moderate Pain Stop: 02/17/17 20:42 Last Admin: 12/19/16 23:17 Dose: 1 tab Al Hydrox/Mg Hydrox/Simethicone (Maalox) 30 ml PO Q6H PRN PRN Reason: Constipation Stop: 02/17/17 20:42 Piperacillin Sod/Tazobactam (Sod 3.375 gm/ Sodium Chloride) 50 mls @ 100 mls/ hr IV Q6HR [facility] Stop: 02/18/17 17:59 Last Admin: 12/22/16 12:03 Dose: 100 mls/hr Dextrose/Sodium Chloride (D5-0.9%Ns) 1,000 mls @ 60 mls/hr IV .[id number] [facility] Stop: 02/17/17 20:59 Lorazepam (Ativan) 1 mg PO Q6H PRN; Protocol PRN Reason: Anxiety/Agitation Stop: 02/17/17 20:42 Magnesium Hydroxide (Milk Of Magnesia) 30 ml PO HS PRN PRN Reason: Constipation Stop: 02/17/17 20:42 Miscellaneous (Clinical Monitoring) 1 ea MC DAILY PRN PRN Reason: RENAL Stop: 02/18/17 09:26 Ondansetron HCl (Zofran Odt) 4 mg PO Q6H PRN PRN Reason: Nausea / Vomiting Stop: 02/17/17 20:42 Trazodone HCl (Desyrel) 100 mg PO HS PRN; Protocol PRN Reason: Insomnia Stop: 02/17/17 20:59 General: Alert, No acute distress HEENT: Atraumatic, Mucous membr. moist/pink Neck: Supple, +2 carotid pulse wo bruit Cardiovascular: Regular rate, Normal S1, Normal S2 Lungs: Clear to auscultation Abdomen: Bowel sounds, Soft Extremities: no Edema Neurological: Sensation intact Skin: no Rash Psych/Mental Status: Mental status NL Assessment/Plan - Problem List Patient Problems: All Active Problems HYPOTENSIVE EPISODE AT HOME (Acute) - Assessment Assessment: TESSY Dehydration FTT recurrent UTI Alzheimer Dementia S/P CVA no residual Non gap Met acid Thrombocytopenia Persistent Leukocytosis - Plan Plan: Lab - Result Diagrams 12/21/16 05:44 12/21/16 05:50 Current Medications Acetaminophen (Tylenol) 650 mg PO Q6H PRN PRN Reason: Mild Pain/Headache/T above 101 Stop: 02/17/17 20:42 Last Admin: 12/19/16 21:46 Dose: 650 mg Acetaminophen/Hydrocodone Bitart ([place] 10 Mg/325 Mg) 1 tab PO Q6H PRN PRN Reason: Pain (Severe) Stop: 02/17/17 20:42 Acetaminophen/Hydrocodone Bitart ([place] 5mg/325mg) 1 tab PO Q6H PRN PRN Reason: Moderate Pain Stop: 02/17/17 20:42 Last Admin: 12/19/16 23:17 Dose: 1 tab Al Hydrox/Mg Hydrox/Simethicone (Maalox) 30 ml PO Q6H PRN PRN Reason: Constipation Stop: 02/17/17 20:42 Dextrose/Sodium Chloride (D5-0.9%Ns) 1,000 mls @ 100 mls/hr IV .Q10H [facility] Stop: 02/17/17 20:59 Last Admin: 12/20/16 08:45 Dose: 100 mls/hr Piperacillin Sod/Tazobactam (Sod 3.375 gm/ Sodium Chloride) 50 mls @ 100 mls/ hr IV Q6HR [facility] Stop: 02/18/17 17:59 Last Infusion: 12/21/16 13:42 Dose: Infused Lorazepam (Ativan) 1 mg PO Q6H PRN; Protocol PRN Reason: Anxiety/Agitation Stop: 02/17/17 20:42 Magnesium Hydroxide (Milk Of Magnesia) 30 ml PO HS PRN PRN Reason: Constipation Stop: 02/17/17 20:42 Miscellaneous (Clinical Monitoring) 1 ea MC DAILY PRN PRN Reason: RENAL Stop: 02/18/17 09:26 Ondansetron HCl (Zofran Odt) 4 mg PO Q6H PRN PRN Reason: Nausea / Vomiting Stop: 02/17/17 20:42 Trazodone HCl (Desyrel) 100 mg PO HS PRN; Protocol PRN Reason: Insomnia Stop: 02/17/17 20:59 kidney fnc gradually improving w/BUN/CR of 22/1.3 continue hydration per staff eating 50% of meals encouraged po intake will decrease ivf
[2016-12-23 06:14] LABS: ANION GAP 10.1 (7.0-16.0); BUN - UREA NITROGEN 18 mg/dL (7-25); BUN/CREATININE RATIO 13.8; CALCIUM SERUM 8.3 mg/dL (8.6-10.3); CARBON DIOXIDE 17.3 mEq/L (21.0-31.0); CHLORIDE 114 mEq/L (98-107); CREATININE - SERUM 1.3 mg/dL (0.6-1.2); GLUCOSE 100 mg/dL (70-105); POTASSIUM SERUM 3.4 mEq/L (3.5-5.1); SODIUM SERUM 138 mEq/L (136-145)
[2016-12-23 06:28] LABS: HEMOGLOBIN 10.2 gm/dL (11.7-16.1); MEAN CORPUSCULAR HEMOGLOBIN 28.6 pg (27.0-31.0); MEAN PLATELET VOLUME 10.9 fl; PLATELET COUNT 97 Th/cmm (150-400); RED BLOOD COUNT 3.57 Mil/cmm (3.80-5.20); RED CELL DISTRIBUTION WIDTH 12.9 % (11.5-20.0)
[2016-12-23 06:36] LABS: WHITE BLOOD COUNT 19.2 Th/cmm (4.8-10.8)
[2016-12-23 08:49] LABS: BAND NEUTROPHILE 4 % (0-10); EOSINOPHIL 1 % (0-5); METAMYELOCYTE 1 % (0-0); NEUTROPHILS 63 % (40-80); PLATELET ESTIMATE ADEQUATE (NORMAL); PLATELET MORPHOLOGY GIANT PLATELETS SEEN (NORMAL); TOTAL CELLS COUNTED 100
[2016-12-23] MEDS ORDERED: Potassium Chloride 20 mEq ER Tab PO ONE (09:56)
--- NOTE | 2016-12-23 09:56 | General Progress Note ---
Subjective - Review of Systems Service Date: 12/23/16 Subjective: more alert, eating better per staff Objective - Results Result Diagrams: 12/23/16 05:10 12/23/16 05:10 Recent Labs: Laboratory Last Values WBC 19.2 Th/cmm (4.8-10.8) H 12/23/16 05:10 RBC 3.57 Mil/cmm (3.80-5.20) L 12/23/16 05:10 Hgb 10.2 gm/dL (11.7-16.1) L 12/23/16 05:10 Hct 30.0 % (35.0-45.0) L 12/23/16 05:10 MCV 84.0 fl (81-100) 12/23/16 05:10 MCH 28.6 pg (27.0-31.0) 12/23/16 05:10 MCHC Differential 34.0 pg (28.0-36.0) 12/23/16 05:10 RDW 12.9 % (11.5-20.0) 12/23/16 05:10 Plt Count 97 Th/cmm (150-400) L 12/23/16 05:10 MPV 10.9 fl 12/23/16 05:10 Band Neutrophils % 4 % (0-10) 12/23/16 05:10 Neutrophils (Manual) 63 % (40-80) 12/23/16 05:10 Lymphocytes 9 % (20-50) L 12/23/16 05:10 Monocytes 22 % (2-10) H 12/23/16 05:10 Eosinophils 1 % (0-5) 12/23/16 05:10 Metamyelocytes 1 % (0-0) H 12/23/16 05:10 Platelet Estimate ADEQUATE (NORMAL) 12/23/16 05:10 Platelet Morphology GIANT PLATELETS SEEN (NORMAL) 12/23/16 05:10 RBC Morph Micro Appear NORMAL (NORMAL) 12/23/16 05:10 ESR 61 mm/hr (0-30) H 12/22/16 06:40 Eos Smear Source URINE 12/20/16 17:00 Eos Smear Total Cells NONE SEEN (NONE SEEN) 12/20/16 17:00 PT 12.5 SECONDS (9.5-11.5) H 12/19/16 17:44 INR 1.19 (0.5-1.4) 12/19/16 17:44 PTT (Actin FS) 36.3 SECONDS (26.0-38.0) 12/19/16 17:44 Sodium 138 mEq/L (136-145) 12/23/16 05:10 Potassium 3.4 mEq/L (3.5-5.1) L 12/23/16 05:10 Chloride 114 mEq/L (98-107) H 12/23/16 05:10 Carbon Dioxide 17.3 mEq/L (21.0-31.0) L 12/23/16 05:10 Anion Gap 10.1 (7.0-16.0) 12/23/16 05:10 BUN 18 mg/dL (7-25) 12/23/16 05:10 Creatinine 1.3 mg/dL (0.6-1.2) H 12/23/16 05:10 Est GFR ( Amer) TNP 12/23/16 05:10 Est GFR (Non-Af Amer) TNP 12/23/16 05:10 BUN/Creatinine Ratio 13.8 12/23/16 05:10 Glucose 100 mg/dL (70-105) 12/23/16 05:10 Whole Bld Lactic Acid 1.13 mmol/L (0.60-1.99) 12/19/16 17:44 Uric Acid 9.0 mg/dL (2.3-6.6) H 12/21/16 05:50 Calcium 8.3 mg/dL (8.6-10.3) L 12/23/16 05:10 Phosphorus 3.1 mg/dL (2.5-5.0) 12/22/16 06:40 Magnesium 1.5 mg/dL (1.9-2.7) L 12/22/16 06:40 Total Bilirubin 0.3 mg/dL (0.3-1.0) 12/21/16 05:50 AST 16 U/L (13-39) 12/21/16 05:50 ALT 24 U/L (7-52) 12/21/16 05:50 Alkaline Phosphatase 166 U/L (34-104) H 12/21/16 05:50 Creatine Kinase 8 U/L (30-223) L 12/19/16 17:44 C-Reactive Protein 0.5 mg/dL (0.0-0.9) 12/22/16 06:40 Total Protein 7.1 gm/dL (6.0-8.3) 12/21/16 05:50 Albumin 3.2 gm/dL (3.7-5.3) L 12/21/16 05:50 Globulin 3.9 gm/dL 12/21/16 05:50 Albumin/Globulin Ratio 0.8 (1.0-1.8) L 12/21/16 05:50 Urine Source CATH 12/19/16 18:40 Urine Color YELLOW 12/19/16 18:40 Urine Clarity HAZY (CLEAR) 12/19/16 18:40 Urine pH 5.0 12/19/16 18:40 Ur Specific [place] 1.020 (1.005-1.030) 12/19/16 18:40 Urine Protein 30 mg/dL (NEGATIVE) H 12/19/16 18:40 Urine Glucose (UA) NEGATIVE mg/dL (NEGATIVE) 12/19/16 18:40 Urine Ketones NEGATIVE mg/dL (NEGATIVE) 12/19/16 18:40 Urine Blood NEGATIVE (NEGATIVE) 12/19/16 18:40 Urine Nitrate NEGATIVE (NEGATIVE) 12/19/16 18:40 Urine Bilirubin NEGATIVE (NEGATIVE) 12/19/16 18:40 Urine Urobilinogen 0.2 E.U./dL (0.2 - 1.0) 12/19/16 18:40 Ur Leukocyte Esterase NEGATIVE (NEGATIVE) 12/19/16 18:40 Urine RBC NONE SEEN /hpf (0-5) 12/19/16 18:40 Urine WBC 0-2 /hpf (0-5) 12/19/16 18:40 Ur Epithelial Cells OCCASIONAL /lpf (FEW) 12/19/16 18:40 Amorphous Sediment MODERATE URATES (NONE SEEN) 12/19/16 18:40 Urine Bacteria FEW /hpf (NONE SEEN) 12/19/16 18:40 Hyaline Casts 0-2 /lpf (0-2) H 12/19/16 18:40 Ur Random Sodium 101 mmol/L 12/20/16 17:00 Urine Creatinine 53.0 mg/dl (28.0-217.0) 12/20/16 17:00 - Physical Exam Vitals and I&O: Vital Signs Temp 98 F 12/23/16 04:00 Pulse 85 03/17/17 04:00 Resp 18 12/23/16 04:00 BP 128/71 12/23/16 04:00 Pulse Ox 97 12/23/16 04:00 Intake & Output 12/22/16 12/23/16 12/23/16 18:59 06:59 18:59 Intake Total 500 170 Balance 500 170 Intake: Intake, IV Amount 100 50 Piperacillin Sodium/ 100 50 Tazobact 3.375 gm In Sodium Chloride 0.9% 50 ml @ 100 mls/hr IV Q6HR [facility] Rx#:[id number] Oral 400 120 Other: # Voids 3 4 # Bowel Movements 1 2 Active Medications: Current Medications Acetaminophen (Tylenol) 650 mg PO Q6H PRN PRN Reason: Mild Pain/Headache/T above 101 Stop: 02/17/17 20:42 Last Admin: 12/19/16 21:46 Dose: 650 mg Acetaminophen/Hydrocodone Bitart ([place] 10 Mg/325 Mg) 1 tab PO Q6H PRN PRN Reason: Pain (Severe) Stop: 02/17/17 20:42 Acetaminophen/Hydrocodone Bitart ([place] 5mg/325mg) 1 tab PO Q6H PRN PRN Reason: Moderate Pain Stop: 02/17/17 20:42 Last Admin: 12/19/16 23:17 Dose: 1 tab Al Hydrox/Mg Hydrox/Simethicone (Maalox) 30 ml PO Q6H PRN PRN Reason: Constipation Stop: 02/17/17 20:42 Piperacillin Sod/Tazobactam (Sod 3.375 gm/ Sodium Chloride) 50 mls @ 100 mls/ hr IV Q6HR [facility] Stop: 02/18/17 17:59 Last Admin: 12/23/16 06:26 Dose: 100 mls/hr Dextrose/Sodium Chloride (D5-0.9%Ns) 1,000 mls @ 60 mls/hr IV .[id number] [facility] Stop: 02/17/17 20:59 Lorazepam (Ativan) 1 mg PO Q6H PRN; Protocol PRN Reason: Anxiety/Agitation Stop: 02/17/17 20:42 Magnesium Hydroxide (Milk Of Magnesia) 30 ml PO HS PRN PRN Reason: Constipation Stop: 02/17/17 20:42 Miscellaneous (Clinical Monitoring) 1 ea MC DAILY PRN PRN Reason: RENAL Stop: 02/18/17 09:26 Ondansetron HCl (Zofran Odt) 4 mg PO Q6H PRN PRN Reason: Nausea / Vomiting Stop: 02/17/17 20:42 Sodium Bicarbonate (Sodium Bicarbonate) 650 mg PO BID BRITTANY PRN Reason: Protocol Stop: 02/20/17 16:59 Last Admin: 12/23/16 09:42 Dose: 650 mg Trazodone HCl (Desyrel) 100 mg PO HS PRN; Protocol PRN Reason: Insomnia Stop: 02/17/17 20:59 General: Alert, No acute distress HEENT: Atraumatic, Mucous membr. moist/pink Neck: Supple, +2 carotid pulse wo bruit Cardiovascular: Regular rate, Normal S1, Normal S2 Lungs: Clear to auscultation Abdomen: Bowel sounds, Soft Extremities: no Edema Neurological: Sensation intact Skin: no Rash Psych/Mental Status: Mental status NL Assessment/Plan - Problem List Patient Problems: All Active Problems HYPOTENSIVE EPISODE AT HOME (Acute) - Assessment Assessment: TESSY Dehydration FTT recurrent UTI Alzheimer Dementia S/P CVA no residual Non gap Met acid Thrombocytopenia Persistent Leukocytosis - Plan Plan: Lab - Result Diagrams 12/21/16 05:44 Lab - Result Diagrams 12/23/16 05:10 12/23/16 05:10 12/21/16 05:50 Current Medications Acetaminophen (Tylenol) 650 mg PO Q6H PRN PRN Reason: Mild Pain/Headache/T above 101 Stop: 02/17/17 20:42 Last Admin: 12/19/16 21:46 Dose: 650 mg Acetaminophen/Hydrocodone Bitart ([place] 10 Mg/325 Mg) 1 tab PO Q6H PRN PRN Reason: Pain (Severe) Stop: 02/17/17 20:42 Acetaminophen/Hydrocodone Bitart ([place] 5mg/325mg) 1 tab PO Q6H PRN PRN Reason: Moderate Pain Stop: 02/17/17 20:42 Last Admin: 12/19/16 23:17 Dose: 1 tab Al Hydrox/Mg Hydrox/Simethicone (Maalox) 30 ml PO Q6H PRN PRN Reason: Constipation Stop: 02/17/17 20:42 Dextrose/Sodium Chloride (D5-0.9%Ns) 1,000 mls @ 100 mls/hr IV .Q10H [facility] Stop: 02/17/17 20:59 Last Admin: 12/20/16 08:45 Dose: 100 mls/hr Piperacillin Sod/Tazobactam (Sod 3.375 gm/ Sodium Chloride) 50 mls @ 100 mls/ hr IV Q6HR [facility] Stop: 02/18/17 17:59 Last Infusion: 12/21/16 13:42 Dose: Infused Lorazepam (Ativan) 1 mg PO Q6H PRN; Protocol PRN Reason: Anxiety/Agitation Stop: 02/17/17 20:42 Magnesium Hydroxide (Milk Of Magnesia) 30 ml PO HS PRN PRN Reason: Constipation Stop: 02/17/17 20:42 Miscellaneous (Clinical Monitoring) 1 ea MC DAILY PRN PRN Reason: RENAL Stop: 02/18/17 09:26 Ondansetron HCl (Zofran Odt) 4 mg PO Q6H PRN PRN Reason: Nausea / Vomiting Stop: 02/17/17 20:42 Trazodone HCl (Desyrel) 100 mg PO HS PRN; Protocol PRN Reason: Insomnia Stop: 02/17/17 20:59 kidney fnc gradually improving w/BUN/CR of 18/1.3 continue hydration per staff eating 50% of meals encouraged po intake will decrease ivf replace K worsening leukocytosis
[2016-12-23] MEDS ORDERED: Piperacillin/Tazobact 2.25 gm in 0.9% NS 50 ML IV SCH (14:00)
[2016-12-23] MEDS: Piperacillin/Tazobact 2.25 gm in 0.9% NS 50 ML IV SCH (17:39)
--- NOTE | 2016-12-24 02:05 | Progress Notes ---
SUBJECTIVE: The patient is awake and alert. The patient is on IV antibiotics. The patient is on IV fluids. OBJECTIVE: VITAL SIGNS: Temperature 98.2, pulse 89, blood pressure 119/66, respiratory rate 18, and pulse ox on room air. CARDIOVASCULAR: S1 and S2. RESPIRATORY: Clear. GASTROINTESTINAL: Soft. Positive bowel sounds. LABORATORY DATA: CBC: WBC per labs hemoglobin 10.2, hematocrit 31.3, platelet count of 100,000, 8% lymphocytes, and 25% monocytes. ESR 61. Chemistry: Sodium 139, potassium per labs, chloride 118, bicarbonate 15, anion gap 9.6, BUN 22 and creatinine per labs. GFR unavailable. Glucose 111, calcium 8.4, phos 3.1, and mag 1.5. C-reactive protein is 0.5. Microbiology: Blood culture from 12/19/2016 shows no growth. MRSA screen from 12/19/2016 is negative. Urine culture from 12/19/2016 is negative. ASSESSMENT: 1. Leukocytosis. 2. Anemia. 3. Thrombocytopenia. 4. Acute kidney injury (improved). PLAN: Continue current medication and treatment. Obtain labs in a.m. Awaiting final culture results. Per recommendation from Infectious Disease, we will obtain Hematology consultation. JOB# [id number] CARLY
--- NOTE | 2016-12-24 02:09 | Progress Notes ---
SUBJECTIVE: The patient is awake, alert. The patient is on IV fluids. The patient is on IV antibiotics. The patient is awaiting Hematology consultation. OBJECTIVE: VITAL SIGNS: Temperature is 98, pulse 85, blood pressure per nursing, respiratory rate 18, O2 sat on room air. CARDIOVASCULAR: S1, S2. RESPIRATORY: Clear. GASTROINTESTINAL: Soft. Positive bowel sounds. LABORATORY DATA: Labs done on the patient is hematology, WBC 19.2, hemoglobin 10.2, hematocrit 30.0, platelet count 97, 9% lymphocytes, 22% monocytes. Chemistry: Sodium 138, potassium 3.4, chloride 114, bicarbonate 17, anion gap 10, BUN 18, creatinine 1.3. GFR unavailable. Glucose 100, calcium is 8.3. Microbiology: Blood culture from 12/19 shows no growth. MRSA screen from 12/19 negative. ASSESSMENT: 1. Leukocytosis. 2. Anemia. 3. Thrombocytosis. 4. Acute kidney injury (improved). PLAN: Continue current medication and treatment. Obtain labs a.m. Awaiting Hematology consultation. business project manager for discharge planning. JOB# [id number] CARLY
[2016-12-24] MEDS: Piperacillin/Tazobact 2.25 gm in 0.9% NS 50 ML IV SCH ×4 (05:58→17:01)
[2016-12-24 06:30] LABS: HEMATOCRIT 29.7 % (35.0-45.0); HEMOGLOBIN 10.3 gm/dL (11.7-16.1); MEAN CELL VOLUME 85.2 fl (81-100); MEAN CORPUSCULAR HEMOGLOBIN 29.5 pg (27.0-31.0); MEAN CORPUSCULAR HGB CONC 34.6 pg (28.0-36.0); MEAN PLATELET VOLUME 11.7 fl; PLATELET COUNT 91 Th/cmm (150-400); RED BLOOD COUNT 3.49 Mil/cmm (3.80-5.20); RED CELL DISTRIBUTION WIDTH 12.8 % (11.5-20.0)
[2016-12-24 06:48] LABS: ANION GAP 10.3 (7.0-16.0); BUN - UREA NITROGEN 11 mg/dL (7-25); BUN/CREATININE RATIO 12.2; CALCIUM SERUM 8.4 mg/dL (8.6-10.3); CARBON DIOXIDE 18.2 mEq/L (21.0-31.0); CHLORIDE 114 mEq/L (98-107); CREATININE - SERUM 0.9 mg/dL (0.6-1.2); GLUCOSE 91 mg/dL (70-105); MAGNESIUM 1.4 mg/dL (1.9-2.7); POTASSIUM SERUM 3.5 mEq/L (3.5-5.1); SODIUM SERUM 139 mEq/L (136-145)
[2016-12-24 09:42] LABS: TOTAL CELLS COUNTED 100
[2016-12-24 09:43] LABS: BAND NEUTROPHILE 3 % (0-10); EOSINOPHIL 1 % (0-5); MYELOCYTE 1 %; NEUTROPHILS 67 % (40-80); PLATELET MORPHOLOGY GIANT PLATELETS SEEN (NORMAL)
[2016-12-24 09:44] LABS: PLATELET ESTIMATE DECREASED PLATELETS (NORMAL)
[2016-12-24] MEDS ORDERED: Mag Sulfate 2gm/50mL Premix 2 GM/50 ML BAG IV ONE (09:51)
[2016-12-24] MEDS: D5-0.9%NS 1,000 ML IV SCH (11:47)
--- NOTE | 2016-12-24 12:57 | Consultation ---
REFERRING PHYSICIAN: Dr. Berger. REASON FOR CONSULTATION: Thrombocytopenia, leukocytosis. HISTORY OF PRESENT ILLNESS: The patient is a 71-year-old female who was admitted because of hypertension. She was seen by the ID specialist and found to have urinary tract infection and antihypertensive medications were held and current blood pressure is okay. She was also seen by regional sales manager because of acute kidney injury, which improved. The patient continues to have a drop in the platelet count and persistent high white count, therefore, I was asked to evaluate. On interviewing the daughter at bedside, she stated that the patient was seen by ____ since April last year for 3 times because of the persistent high white count. She does not know the exact diagnosis. PAST MEDICAL HISTORY: Alzheimer, CVA, hypertension. MEDICATIONS: Reviewed, which included Zosyn started on the . SURGICAL HISTORY: Gallbladder surgery and other abdominal surgery, she does not know the nature. PHYSICAL EXAMINATION: GENERAL: She is awake, not in distress. VITAL SIGNS: Stable. Afebrile. LYMPHATICS: No peripheral lymphadenopathy. CHEST: Clear. ABDOMEN: Soft, scar from previous surgery. No splenomegaly. EXTREMITIES: No edema. Moves 4 extremities. NEUROLOGICAL: No focal deficits. LABORATORY DATA: White count 16,000, monocytes 19%, platelet count 91,000 which dropped from 136,000 on admission. Creatinine improved now 0.9. ASSESSMENT AND PLAN: 1. Persistent leukocytosis with elevation of monocytes. The patient was seen by an outside soil checker and the records ____ prior to starting any workup. 2. Mild thrombocytopenia secondary to urosepsis and Zosyn. There is no need for change of medications at this time. Follow the blood count for now. The admission coagulation profile was normal. Thank you for the opportunity to participate in the care of this interesting patient. JOB# [id number]
--- NOTE | 2016-12-24 15:56 | General Progress Note ---
Subjective - Review of Systems Service Date: 12/24/16 Subjective: more alert, eating better per staff, participating w/ PT Objective - Results Result Diagrams: 12/24/16 05:10 12/24/16 05:10 Recent Labs: Laboratory Last Values WBC 16.0 Th/cmm (4.8-10.8) H 12/24/16 05:10 RBC 3.49 Mil/cmm (3.80-5.20) L 12/24/16 05:10 Hgb 10.3 gm/dL (11.7-16.1) L 12/24/16 05:10 Hct 29.7 % (35.0-45.0) L 12/24/16 05:10 MCV 85.2 fl (81-100) 12/24/16 05:10 MCH 29.5 pg (27.0-31.0) 12/24/16 05:10 MCHC Differential 34.6 pg (28.0-36.0) 12/24/16 05:10 RDW 12.8 % (11.5-20.0) 12/24/16 05:10 Plt Count 91 Th/cmm (150-400) L 12/24/16 05:10 MPV 11.7 fl 12/24/16 05:10 Band Neutrophils % 3 % (0-10) 12/24/16 05:10 Neutrophils (Manual) 67 % (40-80) 12/24/16 05:10 Lymphocytes 9 % (20-50) L 12/24/16 05:10 Monocytes 19 % (2-10) H 12/24/16 05:10 Eosinophils 1 % (0-5) 12/24/16 05:10 Metamyelocytes 1 % (0-0) H 12/23/16 05:10 Myelocytes 1 % 12/24/16 05:10 Platelet Estimate DECREASED PLATELETS (NORMAL) 12/24/16 05:10 Platelet Morphology GIANT PLATELETS SEEN (NORMAL) 12/24/16 05:10 RBC Morph Micro Appear NORMAL (NORMAL) 12/24/16 05:10 ESR > 140 mm/hr (0-30) H 12/24/16 05:10 Eos Smear Source URINE 12/20/16 17:00 Eos Smear Total Cells NONE SEEN (NONE SEEN) 12/20/16 17:00 PT 12.5 SECONDS (9.5-11.5) H 12/19/16 17:44 INR 1.19 (0.5-1.4) 12/19/16 17:44 PTT (Actin FS) 36.3 SECONDS (26.0-38.0) 12/19/16 17:44 Sodium 139 mEq/L (136-145) 12/24/16 05:10 Potassium 3.5 mEq/L (3.5-5.1) 12/24/16 05:10 Chloride 114 mEq/L (98-107) H 12/24/16 05:10 Carbon Dioxide 18.2 mEq/L (21.0-31.0) L 12/24/16 05:10 Anion Gap 10.3 (7.0-16.0) 12/24/16 05:10 BUN 11 mg/dL (7-25) 12/24/16 05:10 Creatinine 0.9 mg/dL (0.6-1.2) 12/24/16 05:10 Est GFR ( Amer) TNP 12/24/16 05:10 Est GFR (Non-Af Amer) TNP 12/24/16 05:10 BUN/Creatinine Ratio 12.2 12/24/16 05:10 Glucose 91 mg/dL (70-105) 12/24/16 05:10 Whole Bld Lactic Acid 1.13 mmol/L (0.60-1.99) 12/19/16 17:44 Uric Acid 9.0 mg/dL (2.3-6.6) H 12/21/16 05:50 Calcium 8.4 mg/dL (8.6-10.3) L 12/24/16 05:10 Phosphorus 3.1 mg/dL (2.5-5.0) 12/22/16 06:40 Magnesium 1.4 mg/dL (1.9-2.7) L 12/24/16 05:10 Total Bilirubin 0.3 mg/dL (0.3-1.0) 12/21/16 05:50 AST 16 U/L (13-39) 12/21/16 05:50 ALT 24 U/L (7-52) 12/21/16 05:50 Alkaline Phosphatase 166 U/L (34-104) H 12/21/16 05:50 Creatine Kinase 8 U/L (30-223) L 12/19/16 17:44 C-Reactive Protein 5.0 mg/dL (0.0-0.9) H 12/24/16 05:10 Total Protein 7.1 gm/dL (6.0-8.3) 12/21/16 05:50 Albumin 3.2 gm/dL (3.7-5.3) L 12/21/16 05:50 Globulin 3.9 gm/dL 12/21/16 05:50 Albumin/Globulin Ratio 0.8 (1.0-1.8) L 12/21/16 05:50 Urine Source CATH 12/19/16 18:40 Urine Color YELLOW 12/19/16 18:40 Urine Clarity HAZY (CLEAR) 12/19/16 18:40 Urine pH 5.0 12/19/16 18:40 Ur Specific [place] 1.020 (1.005-1.030) 12/19/16 18:40 Urine Protein 30 mg/dL (NEGATIVE) H 12/19/16 18:40 Urine Glucose (UA) NEGATIVE mg/dL (NEGATIVE) 12/19/16 18:40 Urine Ketones NEGATIVE mg/dL (NEGATIVE) 12/19/16 18:40 Urine Blood NEGATIVE (NEGATIVE) 12/19/16 18:40 Urine Nitrate NEGATIVE (NEGATIVE) 12/19/16 18:40 Urine Bilirubin NEGATIVE (NEGATIVE) 12/19/16 18:40 Urine Urobilinogen 0.2 E.U./dL (0.2 - 1.0) 12/19/16 18:40 Ur Leukocyte Esterase NEGATIVE (NEGATIVE) 12/19/16 18:40 Urine RBC NONE SEEN /hpf (0-5) 12/19/16 18:40 Urine WBC 0-2 /hpf (0-5) 12/19/16 18:40 Ur Epithelial Cells OCCASIONAL /lpf (FEW) 12/19/16 18:40 Amorphous Sediment MODERATE URATES (NONE SEEN) 12/19/16 18:40 Urine Bacteria FEW /hpf (NONE SEEN) 12/19/16 18:40 Hyaline Casts 0-2 /lpf (0-2) H 12/19/16 18:40 Ur Random Sodium 101 mmol/L 12/20/16 17:00 Urine Creatinine 53.0 mg/dl (28.0-217.0) 12/20/16 17:00 - Physical Exam Vitals and I&O: Vital Signs Temp 97.6 F 12/24/16 12:01 Pulse 76 12/24/16 12:01 Resp 18 12/24/16 12:01 BP 142/100 12/24/16 12:01 Pulse Ox 96 12/24/16 12:01 Intake & Output 12/23/16 12/24/16 12/24/16 18:59 06:59 18:59 Intake Total 100 250 100 Balance 100 250 100 Intake: Intake, IV Amount 100 100 100 Piperacillin Sodium/ 50 100 50 Tazobact 2.25 gm In Sodium Chloride 0.9% 50 ml @ 100 mls/hr IV Q6H [facility] Rx#:[id number] Oral 150 Other: # Voids 2 # Bowel Movements 0 Stool Characteristics Soft Active Medications: Current Medications Acetaminophen (Tylenol) 650 mg PO Q6H PRN PRN Reason: Mild Pain/Headache/T above 101 Stop: 02/17/17 20:42 Last Admin: 12/19/16 21:46 Dose: 650 mg Acetaminophen/Hydrocodone Bitart ([place] 10 Mg/325 Mg) 1 tab PO Q6H PRN PRN Reason: Pain (Severe) Stop: 02/17/17 20:42 Acetaminophen/Hydrocodone Bitart ([place] 5mg/325mg) 1 tab PO Q6H PRN PRN Reason: Moderate Pain Stop: 02/17/17 20:42 Last Admin: 12/19/16 23:17 Dose: 1 tab Al Hydrox/Mg Hydrox/Simethicone (Maalox) 30 ml PO Q6H PRN PRN Reason: Constipation Stop: 02/17/17 20:42 Dextrose/Sodium Chloride (D5-0.9%Ns) 1,000 mls @ 60 mls/hr IV .[id number] [facility] Stop: 02/17/17 20:59 Last Admin: 12/24/16 11:47 Dose: 60 mls/hr Piperacillin Sod/Tazobactam (Sod 2.25 gm/ Sodium Chloride) 50 mls @ 100 mls/hr IV Q6H [facility] Stop: 02/21/17 17:59 Last Infusion: 12/24/16 15:11 Dose: Infused Lorazepam (Ativan) 1 mg PO Q6H PRN; Protocol PRN Reason: Anxiety/Agitation Stop: 02/17/17 20:42 Magnesium Hydroxide (Milk Of Magnesia) 30 ml PO HS PRN PRN Reason: Constipation Stop: 02/17/17 20:42 Miscellaneous (Clinical Monitoring) 1 ea MC DAILY PRN PRN Reason: RENAL DOSE ZOSYN Stop: 02/18/17 09:26 Ondansetron HCl (Zofran Odt) 4 mg PO Q6H PRN PRN Reason: Nausea / Vomiting Stop: 02/17/17 20:42 Sodium Bicarbonate (Sodium Bicarbonate) 650 mg PO BID BRITTANY PRN Reason: Protocol Stop: 02/20/17 16:59 Last Admin: 12/24/16 09:18 Dose: 650 mg Trazodone HCl (Desyrel) 100 mg PO HS PRN; Protocol PRN Reason: Insomnia Stop: 02/17/17 20:59 Last Admin: 12/23/16 20:58 Dose: 100 mg General: Alert, No acute distress HEENT: Atraumatic, Mucous membr. moist/pink Neck: Supple, +2 carotid pulse wo bruit Cardiovascular: Regular rate, Normal S1, Normal S2 Lungs: Clear to auscultation Abdomen: Bowel sounds, Soft Extremities: no Edema Neurological: Sensation intact Skin: no Rash Psych/Mental Status: Mood NL Assessment/Plan - Problem List Patient Problems: All Active Problems HYPOTENSIVE EPISODE AT HOME (Acute) - Assessment Assessment: TESSY Dehydration FTT recurrent UTI Alzheimer Dementia S/P CVA no residual Non gap Met acid Thrombocytopenia Persistent Leukocytosis - Plan Plan: Lab - Result Diagrams 12/21/16 05:44 Lab - Result Diagrams 12/23/16 05:10 Lab - Result Diagrams 12/24/16 05:10 12/24/16 05:10 12/23/16 05:10 12/21/16 05:50 Current Medications Acetaminophen (Tylenol) 650 mg PO Q6H PRN PRN Reason: Mild Pain/Headache/T above 101 Stop: 02/17/17 20:42 Last Admin: 12/19/16 21:46 Dose: 650 mg Acetaminophen/Hydrocodone Bitart ([place] 10 Mg/325 Mg) 1 tab PO Q6H PRN PRN Reason: Pain (Severe) Stop: 02/17/17 20:42 Acetaminophen/Hydrocodone Bitart ([place] 5mg/325mg) 1 tab PO Q6H PRN PRN Reason: Moderate Pain Stop: 02/17/17 20:42 Last Admin: 12/19/16 23:17 Dose: 1 tab Al Hydrox/Mg Hydrox/Simethicone (Maalox) 30 ml PO Q6H PRN PRN Reason: Constipation Stop: 02/17/17 20:42 Dextrose/Sodium Chloride (D5-0.9%Ns) 1,000 mls @ 100 mls/hr IV .Q10H [facility] Stop: 02/17/17 20:59 Last Admin: 12/20/16 08:45 Dose: 100 mls/hr Piperacillin Sod/Tazobactam (Sod 3.375 gm/ Sodium Chloride) 50 mls @ 100 mls/ hr IV Q6HR [facility] Stop: 02/18/17 17:59 Last Infusion: 12/21/16 13:42 Dose: Infused Lorazepam (Ativan) 1 mg PO Q6H PRN; Protocol PRN Reason: Anxiety/Agitation Stop: 02/17/17 20:42 Magnesium Hydroxide (Milk Of Magnesia) 30 ml PO HS PRN PRN Reason: Constipation Stop: 02/17/17 20:42 Miscellaneous (Clinical Monitoring) 1 ea MC DAILY PRN PRN Reason: RENAL Stop: 02/18/17 09:26 Ondansetron HCl (Zofran Odt) 4 mg PO Q6H PRN PRN Reason: Nausea / Vomiting Stop: 02/17/17 20:42 Trazodone HCl (Desyrel) 100 mg PO HS PRN; Protocol PRN Reason: Insomnia Stop: 02/17/17 20:59 kidney fnc gradually improving w/BUN/CR of 11/0.9 continue hydration per staff eating 50% of meals encouraged po intake will decrease ivf replace K worsening leukocytosis continue PT Nutritional Asmnt/Malnutr-PDOC - Dietary Evaluation Malnutrition Findings (Please click <Entered> for more info): Nutritional Asmnt/Malnutrition Start: 12/23/16 18: 46 Text: Status: Complete Freq: Document 12/23/16 18:46 [facility] (Rec: 12/23/16 18:55 [facility] [id number]) Nutritional Asmnt/Malnutrition Patient General Information Nutritional Screening Moderate Risk Screening Diagnosis Dehydration (severe), acute kidney injury, altered mental status Pertinent Medical Hx/Surgical Hx HTN, CVA, dementia Subjective Information Pt is a 71-year-old female admitted with chief complaint of low blood pressure. Pt was awake and alert during time of visit; pt is a good historian . Pt appears well nourished with no signs of muscle or fat depletion. Pt is unsure of UBW, but pt suspects wt loss since last wt measurement at doctor's office a few weeks ago. Pt reports she hardly ate for 2 days prior to admit due to dehydration and confusion. RD offered diet education. Pt accepted and was receptive. Current Diet Order/ Nutrition Support Cardiac Patient / S.O Can Pertinent Medications D5-0.9Ns, Zofran, Zosyn Pertinent Labs (12/22) Mg 1.5L (12/23) K 3.4L, Creatinine 1.3H (improved) Nutritional Hx/Data Height 1.55 m Height (Calculated Centimeters) 154.9 Current Weight (lbs) 61.235 kg Weight (Calculated Kilograms) 61.2 Weight (Calculated Grams) 88978.0 [place] Body Weight 105 % [place] Body Weight 129 Recent Weight Change Yes Weight Status Approriate GI Symptoms GI Symptoms None Last BM Food Allergies No Cultural/Ethnic/Mormonism Belief No cultural or christianity beliefs verbalized. Usual diet at home Regular Skin Integrity/Comment: Kris 15. No skion breakdown. Current %PO Good (75-100%) Estimated Nutritional Goals BEE in Kcals: Using Current wt Calories/Kcals/Kg Based on CBW 61.4 kg (BMI appropriate with geriatric age ) Kcals Calculated 0060-1927 kcals/day (25-30 kcals/kg) Protein: Using Current wt Protein g/kg: Based on CBW 61.4 kg (BMI appropriate with geriatric age ) Protein Calculated 61 gm/day (1 gm/kg) Fluid: ml Per MD/DO due to severe dehydration Nutritional Problem 1. Problem Problem Food and nutrition-knowledge deficit related to Etiology lack of prior education as evidenced by Signs/Symptoms: pt unfamiliar with low sodium diet and unfamiliar that canned foods have high-sodium content. Malnutrition Alert Is there a minimum of two criteria No selected? Query Text:Check all the applicable criteria. A minimum of two criteria are recommended for diagnosis of either severe or non-severe malnutrition. Malnutrition Related to Morbid Obesity Malnutrition related to morbid obesity No Intervention/Recommendation Recommendations by RD Dietary Education by RD1 Comments 1. Continue with current diet. Will provide extra packets of Mrs. Dash per pt's request. 2. Educated pt on low sodium diet, provided handout with discussion. Pt verbalized understanding and reported RD that she will also have her daughter review. Daughter prepares food at home. Expected Outcomes/Goals Expected Outcomes/Goals Pt will be able to verbalized one item that is high in sodium that should be avoided. Physician Parameters for PEM Serum Albumin (g/dl) 3.1 - 3.4 (Mild) 12/23/16 18:55 Dietitian Notes by Christi Zheng Nutrition Note Initial Nutrition Assessment completed by Christi Zheng on 12/23/16. Please refer to nutrition assessment under Patient Care tab of EMR. Nutrition Interventions: 1. Continue with current diet. Will provide extra packets of Mrs. Lam per pt's request. 2. Educated pt on low sodium diet, provided handout with discussion. Pt verbalized understanding and reported RD that she will also have her daughter review. Daughter prepares food at home. F/U in 7 days as Low risk, 12/30. Initialized on 12/23/16 18:55 - END OF NOTE
--- NOTE | 2016-12-24 16:55 | Progress Notes ---
SUBJECTIVE: The patient is awake, alert. The patient is on IV fluids. The patient remains on IV antibiotics. Awaiting Hematology consultation. The patients states she has had difficulty with walking with the right leg, no complaints of difficulty with left leg. OBJECTIVE: VITAL SIGNS: Temperature 98.2, pulse 88, blood pressure 106/61, respiratory rate 17, O2 sat 93% on room air. CARDIAC: S1, S2. RESPIRATORY: Clear. GASTROINTESTINAL: Soft, positive bowel sounds. LABORATORY DATA: Hematology; WBC per labs, hemoglobin 10.3, hematocrit 28.7, platelet count 91 with 9% lymphocytes, 19% monocytes. ESR per labs. Chemistry; sodium 139, potassium 3.5, chloride 114, bicarbonate 18, anion gap 10, BUN 11, creatinine 0.9. GFR unavailable. Glucose of 91, calcium 8.4, mag is 1.4. MICROBIOLOGY: Blood culture from December 19 shows no growth. MRSA screen from December 19 negative. Urine culture from December 19 is negative. ASSESSMENT: 1. Leukocytosis. 2. Anemia. 3. Thrombocytopenia. 4. Hypercalcemia. 5. Hypomagnesemia. 6. Acute kidney injury (improved). 7. Weakness and debility. 8. New-onset left lower extremity weakness. PLAN: Continue current medications and treatment. We will obtain physical therapy evaluation. We will obtain CT of head to rule out new-onset CVA. Case management for SNF placement. We will correct magnesium level. Further recommendations per consult. JOB# [id number] CARLY
[2016-12-25] MEDS: Piperacillin/Tazobact 2.25 gm in 0.9% NS 50 ML IV SCH ×4 (01:04→17:07)
[2016-12-25 05:30] LABS: HEMATOCRIT 28.4 % (35.0-45.0); MEAN CELL VOLUME 85.1 fl (81-100); MEAN CORPUSCULAR HEMOGLOBIN 29.8 pg (27.0-31.0); MEAN PLATELET VOLUME 10.5 fl; PLATELET COUNT 78 Th/cmm (150-400); RED BLOOD COUNT 3.34 Mil/cmm (3.80-5.20); RED CELL DISTRIBUTION WIDTH 12.9 % (11.5-20.0)
[2016-12-25 05:42] LABS: WHITE BLOOD COUNT 15.3 Th/cmm (4.8-10.8)
[2016-12-25 05:47] LABS: BUN - UREA NITROGEN 10 mg/dL (7-25); BUN/CREATININE RATIO 11.1; CALCIUM SERUM 8.4 mg/dL (8.6-10.3); CARBON DIOXIDE 19.4 mEq/L (21.0-31.0); CHLORIDE 112 mEq/L (98-107); CREATININE - SERUM 0.9 mg/dL (0.6-1.2); GLUCOSE 96 mg/dL (70-105); MAGNESIUM 1.7 mg/dL (1.9-2.7); PHOSPHOROUS 3.1 mg/dL (2.5-5.0); POTASSIUM SERUM 3.4 mEq/L (3.5-5.1); SODIUM SERUM 136 mEq/L (136-145)
[2016-12-25] MEDS: Hydrocodone/APAP 10 mg/325 mg Tab PO PRN ×3 (06:14→20:00)
[2016-12-25 08:55] LABS: NEUTROPHILS 61 % (40-80); PLATELET ESTIMATE DECREASED PLATELETS (NORMAL); PLATELET MORPHOLOGY GIANT PLATELETS SEEN (NORMAL); TOTAL CELLS COUNTED 100
[2016-12-25] MEDS: D5-0.9%NS 1,000 ML IV SCH (09:07)
--- NOTE | 2016-12-25 11:10 | Diagnostic Imaging Report ---
Head CT without intravenous contrast Indication: Altered mental status, rule out CVA Comparison: None Technique: Axial images were obtained from the vertex to the skull base without IV contrast. Coronal reconstructions were made. Total DLP: 485, CTDI 32 FINDINGS: Images of the brain obtained without contrast demonstrate no evidence of an acute hemorrhage. Diffuse white matter disease is noted with areas of encephalomalacia seen involving the bifrontal lobe regions, right greater than left. The ventricles and basal cisterns are patent. No mass effect or midline shift. Atherosclerosis is noted. No evidence of a skull fracture or focal soft tissue swelling. IMPRESSION: No evidence of acute intracranial hemorrhage Diffuse white matter disease which is nonspecific and may be due to chronic microvessel ischemia. Areas of encephalomalacia are seen along the bifrontal lobe regions, right greater than left which may be due to old infarcts. If there is continued clinical concern for acute process, MRI is also recommended for further assessment. Atherosclerotic vascular disease.
[2016-12-25] MEDS ORDERED: Potassium Chloride 20 mEq ER Tab PO ONE (12:48)
[2016-12-25] MEDS ORDERED: Mag Sulfate 2gm/50mL Premix 2 GM/50 ML BAG IV ONE (12:49)
--- NOTE | 2016-12-25 14:50 | Infectious Disease Prog Note ---
Infectious Disease Subjective - Review of Systems Service Date: 12/25/16 Subjective: cc uti/leucocytosis hpi- pt on iv bax ros no fever o/e vss chaedst claer abnd soft ext no edema dx uti r/o no infective causes of high wbc plan zosyn Infectious Disease Objective - Results Result Diagrams: 12/25/16 04:50 12/25/16 04:50 Recent Labs: Laboratory Last Values WBC 15.3 Th/cmm (4.8-10.8) H 12/25/16 04:50 RBC 3.34 Mil/cmm (3.80-5.20) L 12/25/16 04:50 Hgb 10.0 gm/dL (11.7-16.1) L 12/25/16 04:50 Hct 28.4 % (35.0-45.0) L 12/25/16 04:50 MCV 85.1 fl (81-100) 12/25/16 04:50 MCH 29.8 pg (27.0-31.0) 12/25/16 04:50 MCHC Differential 35.0 pg (28.0-36.0) 12/25/16 04:50 RDW 12.9 % (11.5-20.0) 12/25/16 04:50 Plt Count 78 Th/cmm (150-400) L 12/25/16 04:50 MPV 10.5 fl 12/25/16 04:50 Band Neutrophils % 3 % (0-10) 12/24/16 05:10 Neutrophils (Manual) 61 % (40-80) 12/25/16 04:50 Lymphocytes 5 % (20-50) L 12/25/16 04:50 Monocytes 34 % (2-10) H 12/25/16 04:50 Eosinophils 1 % (0-5) 12/24/16 05:10 Metamyelocytes 1 % (0-0) H 12/23/16 05:10 Myelocytes 1 % 12/24/16 05:10 Platelet Estimate DECREASED PLATELETS (NORMAL) 12/25/16 04:50 Platelet Morphology GIANT PLATELETS SEEN (NORMAL) 12/25/16 04:50 RBC Morph Micro Appear NORMAL (NORMAL) 12/25/16 04:50 ESR > 140 mm/hr (0-30) H 12/25/16 04:50 Eos Smear Source URINE 12/20/16 17:00 Eos Smear Total Cells NONE SEEN (NONE SEEN) 12/20/16 17:00 PT 12.5 SECONDS (9.5-11.5) H 12/19/16 17:44 INR 1.19 (0.5-1.4) 12/19/16 17:44 PTT (Actin FS) 36.3 SECONDS (26.0-38.0) 12/19/16 17:44 Sodium 136 mEq/L (136-145) 12/25/16 04:50 Potassium 3.4 mEq/L (3.5-5.1) L 12/25/16 04:50 Chloride 112 mEq/L (98-107) H 12/25/16 04:50 Carbon Dioxide 19.4 mEq/L (21.0-31.0) L 12/25/16 04:50 Anion Gap 8.0 (7.0-16.0) 12/25/16 04:50 BUN 10 mg/dL (7-25) 12/25/16 04:50 Creatinine 0.9 mg/dL (0.6-1.2) 12/25/16 04:50 Est GFR ( Amer) TNP 12/25/16 04:50 Est GFR (Non-Af Amer) TNP 12/25/16 04:50 BUN/Creatinine Ratio 11.1 12/25/16 04:50 Glucose 96 mg/dL (70-105) 12/25/16 04:50 Whole Bld Lactic Acid 1.13 mmol/L (0.60-1.99) 12/19/16 17:44 Uric Acid 9.0 mg/dL (2.3-6.6) H 12/21/16 05:50 Calcium 8.4 mg/dL (8.6-10.3) L 12/25/16 04:50 Phosphorus 3.1 mg/dL (2.5-5.0) 12/25/16 04:50 Magnesium 1.7 mg/dL (1.9-2.7) L 12/25/16 04:50 Total Bilirubin 0.3 mg/dL (0.3-1.0) 12/21/16 05:50 AST 16 U/L (13-39) 12/21/16 05:50 ALT 24 U/L (7-52) 12/21/16 05:50 Alkaline Phosphatase 166 U/L (34-104) H 12/21/16 05:50 Creatine Kinase 8 U/L (30-223) L 12/19/16 17:44 C-Reactive Protein 5.0 mg/dL (0.0-0.9) H 12/25/16 04:50 Total Protein 7.1 gm/dL (6.0-8.3) 12/21/16 05:50 Albumin 3.2 gm/dL (3.7-5.3) L 12/21/16 05:50 Globulin 3.9 gm/dL 12/21/16 05:50 Albumin/Globulin Ratio 0.8 (1.0-1.8) L 12/21/16 05:50 Urine Source CATH 12/19/16 18:40 Urine Color YELLOW 12/19/16 18:40 Urine Clarity HAZY (CLEAR) 12/19/16 18:40 Urine pH 5.0 12/19/16 18:40 Ur Specific [place] 1.020 (1.005-1.030) 12/19/16 18:40 Urine Protein 30 mg/dL (NEGATIVE) H 12/19/16 18:40 Urine Glucose (UA) NEGATIVE mg/dL (NEGATIVE) 12/19/16 18:40 Urine Ketones NEGATIVE mg/dL (NEGATIVE) 12/19/16 18:40 Urine Blood NEGATIVE (NEGATIVE) 12/19/16 18:40 Urine Nitrate NEGATIVE (NEGATIVE) 12/19/16 18:40 Urine Bilirubin NEGATIVE (NEGATIVE) 12/19/16 18:40 Urine Urobilinogen 0.2 E.U./dL (0.2 - 1.0) 12/19/16 18:40 Ur Leukocyte Esterase NEGATIVE (NEGATIVE) 12/19/16 18:40 Urine RBC NONE SEEN /hpf (0-5) 12/19/16 18:40 Urine WBC 0-2 /hpf (0-5) 12/19/16 18:40 Ur Epithelial Cells OCCASIONAL /lpf (FEW) 12/19/16 18:40 Amorphous Sediment MODERATE URATES (NONE SEEN) 12/19/16 18:40 Urine Bacteria FEW /hpf (NONE SEEN) 12/19/16 18:40 Hyaline Casts 0-2 /lpf (0-2) H 12/19/16 18:40 Ur Random Sodium 101 mmol/L 12/20/16 17:00 Urine Creatinine 53.0 mg/dl (28.0-217.0) 12/20/16 17:00 - Physical Exam Vitals and I&O: Vital Signs Temp 97.1 F 12/25/16 11:50 Pulse 85 12/25/16 11:50 Resp 20 12/25/16 12:00 BP 121/59 12/25/16 11:50 Pulse Ox 96 12/25/16 11:50 Intake & Output 12/24/16 12/25/16 12/25/16 18:59 06:59 18:59 Intake Total 1650 1400 50 Balance 1650 1400 50 Intake: Intake, IV Amount 150 1100 50 D5-0.9%Ns 1,000 ml @ 60 1000 mls/hr IV .[id number] [facility] Rx #:[id number] Piperacillin Sodium/ 100 100 50 Tazobact 2.25 gm In Sodium Chloride 0.9% 50 ml @ 100 mls/hr IV Q6H [facility] Rx#:[id number] Oral 1500 300 Other: # Voids 4 # Bowel Movements 1 Stool Characteristics Soft Soft Soft Active Medications: Current Medications Acetaminophen (Tylenol) 650 mg PO Q6H PRN PRN Reason: Mild Pain/Headache/T above 101 Stop: 02/17/17 20:42 Last Admin: 12/19/16 21:46 Dose: 650 mg Acetaminophen/Hydrocodone Bitart ([place] 10 Mg/325 Mg) 1 tab PO Q6H PRN PRN Reason: Pain (Severe) Stop: 02/17/17 20:42 Last Admin: 12/25/16 12:08 Dose: 1 tab Acetaminophen/Hydrocodone Bitart ([place] 5mg/325mg) 1 tab PO Q6H PRN PRN Reason: Moderate Pain Stop: 02/17/17 20:42 Last Admin: 12/19/16 23:17 Dose: 1 tab Al Hydrox/Mg Hydrox/Simethicone (Maalox) 30 ml PO Q6H PRN PRN Reason: Constipation Stop: 02/17/17 20:42 Dextrose/Sodium Chloride (D5-0.9%Ns) 1,000 mls @ 60 mls/hr IV .[id number] BRITTANY Stop: 02/17/17 20:59 Last Admin: 12/25/16 09:07 Dose: 60 mls/hr Piperacillin Sod/Tazobactam (Sod 2.25 gm/ Sodium Chloride) 50 mls @ 100 mls/hr IV Q6H BRITTANY Stop: 02/21/17 17:59 Last Infusion: 12/25/16 13:37 Dose: Infused Lorazepam (Ativan) 1 mg PO Q6H PRN; Protocol PRN Reason: Anxiety/Agitation Stop: 02/17/17 20:42 Magnesium Hydroxide (Milk Of Magnesia) 30 ml PO HS PRN PRN Reason: Constipation Stop: 02/17/17 20:42 Miscellaneous (Clinical Monitoring) 1 ea MC DAILY PRN PRN Reason: RENAL DOSE ZOSYN Stop: 02/18/17 09:26 Ondansetron HCl (Zofran Odt) 4 mg PO Q6H PRN PRN Reason: Nausea / Vomiting Stop: 02/17/17 20:42 Sodium Bicarbonate (Sodium Bicarbonate) 650 mg PO BID BRITTANY PRN Reason: Protocol Stop: 02/20/17 16:59 Last Admin: 12/25/16 09:02 Dose: 650 mg Trazodone HCl (Desyrel) 100 mg PO HS PRN; Protocol PRN Reason: Insomnia Stop: 02/17/17 20:59 Last Admin: 12/24/16 21:07 Dose: 100 mg Infectious Disease Assmt/Plan - Problem List Patient Problems: All Active Problems HYPOTENSIVE EPISODE AT HOME (Acute) Nutritional Asmnt/Malnutr-PDOC - Dietary Evaluation Malnutrition Findings (Please click <Entered> for more info): Nutritional Asmnt/Malnutrition Start: 12/23/16 18: 46 Text: Status: Complete Freq: Document 12/23/16 18:46 [facility] (Rec: 12/23/16 18:[address] [facility] [id number]) Nutritional Asmnt/Malnutrition Patient General Information Nutritional Screening Moderate Risk Screening Diagnosis Dehydration (severe), acute kidney injury, altered mental status Pertinent Medical Hx/Surgical Hx HTN, CVA, dementia Subjective Information Pt is a 71-year-old female admitted with chief complaint of low blood pressure. Pt was awake and alert during time of visit; pt is a good historian . Pt appears well nourished with no signs of muscle or fat depletion. Pt is unsure of UBW, but pt suspects wt loss since last wt measurement at doctor's office a few weeks ago. Pt reports she hardly ate for 2 days prior to admit due to dehydration and confusion. RD offered diet education. Pt accepted and was receptive. Current Diet Order/ Nutrition Support Cardiac Patient / S.O Can Pertinent Medications D5-0.9Ns, Zofran, Zosyn Pertinent Labs (12/22) Mg 1.5L (12/23) K 3.4L, Creatinine 1.3H (improved) Nutritional Hx/Data Height 1.55 m Height (Calculated Centimeters) 154.9 Current Weight (lbs) 61.235 kg Weight (Calculated Kilograms) 61.2 Weight (Calculated Grams) 64013.0 Brady Body Weight 105 % Brady Body Weight 129 Recent Weight Change Yes Weight Status Approriate GI Symptoms GI Symptoms None Last BM Food Allergies No Cultural/Ethnic/P[employer]ism Belief No cultural or christianity beliefs verbalized. Usual diet at home Regular Skin Integrity/Comment: Kris 15. No skion breakdown. Current %PO Good (75-100%) Estimated Nutritional Goals BEE in Kcals: Using Current wt Calories/Kcals/Kg Based on CBW 61.4 kg (BMI appropriate with geriatric age ) Kcals Calculated 0912-8263 kcals/day (25-30 kcals/kg) Protein: Using Current wt Protein g/kg: Based on CBW 61.4 kg (BMI appropriate with geriatric age ) Protein Calculated 61 gm/day (1 gm/kg) Fluid: ml Per MD/DO due to severe dehydration Nutritional Problem 1. Problem Problem Food and nutrition-knowledge deficit related to Etiology lack of prior education as evidenced by Signs/Symptoms: pt unfamiliar with low sodium diet and unfamiliar that canned foods have high-sodium content. Malnutrition Alert Is there a minimum of two criteria No selected? Query Text:Check all the applicable criteria. A minimum of two criteria are recommended for diagnosis of either severe or non-severe malnutrition. Malnutrition Related to Morbid Obesity Malnutrition related to morbid obesity No Intervention/Recommendation Recommendations by RD Dietary Education by RD1 Comments 1. Continue with current diet. Will provide extra packets of Mrs. Lam per pt's request. 2. Educated pt on low sodium diet, provided handout with discussion. Pt verbalized understanding and reported RD that she will also have her daughter review. Daughter prepares food at home. Expected Outcomes/Goals Expected Outcomes/Goals Pt will be able to verbalized one item that is high in sodium that should be avoided. Physician Parameters for PEM Serum Albumin (g/dl) 3.1 - 3.4 (Mild) 12/23/16 18:55 Dietitian Notes by Christi Zheng Nutrition Note Initial Nutrition Assessment completed by Christi Zheng on 12/23/16. Please refer to nutrition assessment under Patient Care tab of EMR. Nutrition Interventions: 1. Continue with current diet. Will provide extra packets of Mrs. Lam per pt's request. 2. Educated pt on low sodium diet, provided handout with discussion. Pt verbalized understanding and reported RD that she will also have her daughter review. Daughter prepares food at home. F/U in 7 days as Low risk, 12/30. Initialized on 12/23/16 18:55 - END OF NOTE
--- NOTE | 2016-12-25 15:09 | General Progress Note ---
Subjective - Review of Systems Service Date: 12/25/16 Subjective: more alert, eating better per staff, participating w/ PT Objective - Results Result Diagrams: 12/25/16 04:50 12/25/16 04:50 Recent Labs: Laboratory Last Values WBC 15.3 Th/cmm (4.8-10.8) H 12/25/16 04:50 RBC 3.34 Mil/cmm (3.80-5.20) L 12/25/16 04:50 Hgb 10.0 gm/dL (11.7-16.1) L 12/25/16 04:50 Hct 28.4 % (35.0-45.0) L 12/25/16 04:50 MCV 85.1 fl (81-100) 12/25/16 04:50 MCH 29.8 pg (27.0-31.0) 12/25/16 04:50 MCHC Differential 35.0 pg (28.0-36.0) 12/25/16 04:50 RDW 12.9 % (11.5-20.0) 12/25/16 04:50 Plt Count 78 Th/cmm (150-400) L 12/25/16 04:50 MPV 10.5 fl 12/25/16 04:50 Band Neutrophils % 3 % (0-10) 12/24/16 05:10 Neutrophils (Manual) 61 % (40-80) 12/25/16 04:50 Lymphocytes 5 % (20-50) L 12/25/16 04:50 Monocytes 34 % (2-10) H 12/25/16 04:50 Eosinophils 1 % (0-5) 12/24/16 05:10 Metamyelocytes 1 % (0-0) H 12/23/16 05:10 Myelocytes 1 % 12/24/16 05:10 Platelet Estimate DECREASED PLATELETS (NORMAL) 12/25/16 04:50 Platelet Morphology GIANT PLATELETS SEEN (NORMAL) 12/25/16 04:50 RBC Morph Micro Appear NORMAL (NORMAL) 12/25/16 04:50 ESR > 140 mm/hr (0-30) H 12/25/16 04:50 Eos Smear Source URINE 12/20/16 17:00 Eos Smear Total Cells NONE SEEN (NONE SEEN) 12/20/16 17:00 PT 12.5 SECONDS (9.5-11.5) H 12/19/16 17:44 INR 1.19 (0.5-1.4) 12/19/16 17:44 PTT (Actin FS) 36.3 SECONDS (26.0-38.0) 12/19/16 17:44 Sodium 136 mEq/L (136-145) 12/25/16 04:50 Potassium 3.4 mEq/L (3.5-5.1) L 12/25/16 04:50 Chloride 112 mEq/L (98-107) H 12/25/16 04:50 Carbon Dioxide 19.4 mEq/L (21.0-31.0) L 12/25/16 04:50 Anion Gap 8.0 (7.0-16.0) 12/25/16 04:50 BUN 10 mg/dL (7-25) 12/25/16 04:50 Creatinine 0.9 mg/dL (0.6-1.2) 12/25/16 04:50 Est GFR ( Amer) TNP 12/25/16 04:50 Est GFR (Non-Af Amer) TNP 12/25/16 04:50 BUN/Creatinine Ratio 11.1 12/25/16 04:50 Glucose 96 mg/dL (70-105) 12/25/16 04:50 Whole Bld Lactic Acid 1.13 mmol/L (0.60-1.99) 12/19/16 17:44 Uric Acid 9.0 mg/dL (2.3-6.6) H 12/21/16 05:50 Calcium 8.4 mg/dL (8.6-10.3) L 12/25/16 04:50 Phosphorus 3.1 mg/dL (2.5-5.0) 12/25/16 04:50 Magnesium 1.7 mg/dL (1.9-2.7) L 12/25/16 04:50 Total Bilirubin 0.3 mg/dL (0.3-1.0) 12/21/16 05:50 AST 16 U/L (13-39) 12/21/16 05:50 ALT 24 U/L (7-52) 12/21/16 05:50 Alkaline Phosphatase 166 U/L (34-104) H 12/21/16 05:50 Creatine Kinase 8 U/L (30-223) L 12/19/16 17:44 C-Reactive Protein 5.0 mg/dL (0.0-0.9) H 12/25/16 04:50 Total Protein 7.1 gm/dL (6.0-8.3) 12/21/16 05:50 Albumin 3.2 gm/dL (3.7-5.3) L 12/21/16 05:50 Globulin 3.9 gm/dL 12/21/16 05:50 Albumin/Globulin Ratio 0.8 (1.0-1.8) L 12/21/16 05:50 Urine Source CATH 12/19/16 18:40 Urine Color YELLOW 12/19/16 18:40 Urine Clarity HAZY (CLEAR) 12/19/16 18:40 Urine pH 5.0 12/19/16 18:40 Ur Specific [place] 1.020 (1.005-1.030) 12/19/16 18:40 Urine Protein 30 mg/dL (NEGATIVE) H 12/19/16 18:40 Urine Glucose (UA) NEGATIVE mg/dL (NEGATIVE) 12/19/16 18:40 Urine Ketones NEGATIVE mg/dL (NEGATIVE) 12/19/16 18:40 Urine Blood NEGATIVE (NEGATIVE) 12/19/16 18:40 Urine Nitrate NEGATIVE (NEGATIVE) 12/19/16 18:40 Urine Bilirubin NEGATIVE (NEGATIVE) 12/19/16 18:40 Urine Urobilinogen 0.2 E.U./dL (0.2 - 1.0) 12/19/16 18:40 Ur Leukocyte Esterase NEGATIVE (NEGATIVE) 12/19/16 18:40 Urine RBC NONE SEEN /hpf (0-5) 12/19/16 18:40 Urine WBC 0-2 /hpf (0-5) 12/19/16 18:40 Ur Epithelial Cells OCCASIONAL /lpf (FEW) 12/19/16 18:40 Amorphous Sediment MODERATE URATES (NONE SEEN) 12/19/16 18:40 Urine Bacteria FEW /hpf (NONE SEEN) 12/19/16 18:40 Hyaline Casts 0-2 /lpf (0-2) H 12/19/16 18:40 Ur Random Sodium 101 mmol/L 12/20/16 17:00 Urine Creatinine 53.0 mg/dl (28.0-217.0) 12/20/16 17:00 - Physical Exam Vitals and I&O: Vital Signs Temp 97.1 F 12/25/16 11:50 Pulse 85 12/25/16 11:50 Resp 20 12/25/16 12:00 BP 121/59 12/25/16 11:50 Pulse Ox 96 12/25/16 11:50 Intake & Output 12/24/16 12/25/16 12/25/16 18:59 06:59 18:59 Intake Total 1650 1400 50 Balance 1650 1400 50 Intake: Intake, IV Amount 150 1100 50 D5-0.9%Ns 1,000 ml @ 60 1000 mls/hr IV .[id number] [facility] Rx #:[id number] Piperacillin Sodium/ 100 100 50 Tazobact 2.25 gm In Sodium Chloride 0.9% 50 ml @ 100 mls/hr IV Q6H [facility] Rx#:[id number] Oral 1500 300 Other: # Voids 4 # Bowel Movements 1 Stool Characteristics Soft Soft Soft Active Medications: Current Medications Acetaminophen (Tylenol) 650 mg PO Q6H PRN PRN Reason: Mild Pain/Headache/T above 101 Stop: 02/17/17 20:42 Last Admin: 12/19/16 21:46 Dose: 650 mg Acetaminophen/Hydrocodone Bitart ([place] 10 Mg/325 Mg) 1 tab PO Q6H PRN PRN Reason: Pain (Severe) Stop: 02/17/17 20:42 Last Admin: 12/25/16 12:08 Dose: 1 tab Acetaminophen/Hydrocodone Bitart ([place] 5mg/325mg) 1 tab PO Q6H PRN PRN Reason: Moderate Pain Stop: 02/17/17 20:42 Last Admin: 12/19/16 23:17 Dose: 1 tab Al Hydrox/Mg Hydrox/Simethicone (Maalox) 30 ml PO Q6H PRN PRN Reason: Constipation Stop: 02/17/17 20:42 Dextrose/Sodium Chloride (D5-0.9%Ns) 1,000 mls @ 60 mls/hr IV .[id number] BRITTANY Stop: 02/17/17 20:59 Last Admin: 12/25/16 09:07 Dose: 60 mls/hr Piperacillin Sod/Tazobactam (Sod 2.25 gm/ Sodium Chloride) 50 mls @ 100 mls/hr IV Q6H [facility] Stop: 02/21/17 17:59 Last Infusion: 12/25/16 13:37 Dose: Infused Lorazepam (Ativan) 1 mg PO Q6H PRN; Protocol PRN Reason: Anxiety/Agitation Stop: 02/17/17 20:42 Magnesium Hydroxide (Milk Of Magnesia) 30 ml PO HS PRN PRN Reason: Constipation Stop: 02/17/17 20:42 Miscellaneous (Clinical Monitoring) 1 ea MC DAILY PRN PRN Reason: RENAL DOSE ZOSYN Stop: 02/18/17 09:26 Ondansetron HCl (Zofran Odt) 4 mg PO Q6H PRN PRN Reason: Nausea / Vomiting Stop: 02/17/17 20:42 Sodium Bicarbonate (Sodium Bicarbonate) 650 mg PO BID BRITTANY PRN Reason: Protocol Stop: 02/20/17 16:59 Last Admin: 12/25/16 09:02 Dose: 650 mg Trazodone HCl (Desyrel) 100 mg PO HS PRN; Protocol PRN Reason: Insomnia Stop: 02/17/17 20:59 Last Admin: 12/24/16 21:07 Dose: 100 mg General: Alert, Cooperative, No acute distress HEENT: Atraumatic, Mucous membr. moist/pink Neck: Supple, +2 carotid pulse wo bruit Cardiovascular: Regular rate, Normal S1, Normal S2 Lungs: Clear to auscultation Abdomen: Bowel sounds, Soft Extremities: no Edema Neurological: Sensation intact Skin: no Rash Psych/Mental Status: Mood NL Assessment/Plan - Problem List Patient Problems: All Active Problems HYPOTENSIVE EPISODE AT HOME (Acute) - Assessment Assessment: TESSY Dehydration FTT recurrent UTI Alzheimer Dementia S/P CVA no residual Non gap Met acid Thrombocytopenia Persistent Leukocytosis - Plan Plan: Lab - Result Diagrams 12/21/16 05:44 Lab - Result Diagrams 12/23/16 05:10 Lab - Result Diagrams 12/24/16 05:10 12/24/16 05:10 12/23/16 05:10 12/21/16 05:50 Current Medications Acetaminophen (Tylenol) 650 mg PO Q6H PRN PRN Reason: Mild Pain/Headache/T above 101 Stop: 02/17/17 20:42 Last Admin: 12/19/16 21:46 Dose: 650 mg Acetaminophen/Hydrocodone Bitart ([place] 10 Mg/325 Mg) 1 tab PO Q6H PRN PRN Reason: Pain (Severe) Stop: 02/17/17 20:42 Acetaminophen/Hydrocodone Bitart ([place] 5mg/325mg) 1 tab PO Q6H PRN PRN Reason: Moderate Pain Stop: 02/17/17 20:42 Last Admin: 12/19/16 23:17 Dose: 1 tab Al Hydrox/Mg Hydrox/Simethicone (Maalox) 30 ml PO Q6H PRN PRN Reason: Constipation Stop: 02/17/17 20:42 Dextrose/Sodium Chloride (D5-0.9%Ns) 1,000 mls @ 100 mls/hr IV .Q10H BRITTANY Stop: 02/17/17 20:59 Last Admin: 12/20/16 08:45 Dose: 100 mls/hr Piperacillin Sod/Tazobactam (Sod 3.375 gm/ Sodium Chloride) 50 mls @ 100 mls/ hr IV Q6HR BRITTANY Stop: 02/18/17 17:59 Last Infusion: 12/21/16 13:42 Dose: Infused Lorazepam (Ativan) 1 mg PO Q6H PRN; Protocol PRN Reason: Anxiety/Agitation Stop: 02/17/17 20:42 Magnesium Hydroxide (Milk Of Magnesia) 30 ml PO HS PRN PRN Reason: Constipation Stop: 02/17/17 20:42 Miscellaneous (Clinical Monitoring) 1 ea MC DAILY PRN PRN Reason: RENAL Stop: 02/18/17 09:26 Ondansetron HCl (Zofran Odt) 4 mg PO Q6H PRN PRN Reason: Nausea / Vomiting Stop: 02/17/17 20:42 Trazodone HCl (Desyrel) 100 mg PO HS PRN; Protocol PRN Reason: Insomnia Stop: 02/17/17 20:59 kidney fnc gradually improving w/BUN/CR of 10/0.9 continue hydration per staff eating 50% of meals encouraged po intake will decrease ivf replace K,Mg worsening leukocytosis continue PT Nutritional Asmnt/Malnutr-PDOC - Dietary Evaluation Malnutrition Findings (Please click <Entered> for more info): Nutritional Asmnt/Malnutrition Start: 12/23/16 18: 46 Text: Status: Complete Freq: Document 12/23/16 18:46 JDANH (Rec: 12/23/16 18:55 JDANH [id number]) Nutritional Asmnt/Malnutrition Patient General Information Nutritional Screening Moderate Risk Screening Diagnosis Dehydration (severe), acute kidney injury, altered mental status Pertinent Medical Hx/Surgical Hx HTN, CVA, dementia Subjective Information Pt is a 71-year-old female admitted with chief complaint of low blood pressure. Pt was awake and alert during time of visit; pt is a good historian . Pt appears well nourished with no signs of muscle or fat depletion. Pt is unsure of UBW, but pt suspects wt loss since last wt measurement at doctor's office a few weeks ago. Pt reports she hardly ate for 2 days prior to admit due to dehydration and confusion. RD offered diet education. Pt accepted and was receptive. Current Diet Order/ Nutrition Support Cardiac Patient / S.O Can Pertinent Medications D5-0.9Ns, Zofran, Zosyn Pertinent Labs (12/22) Mg 1.5L (12/23) K 3.4L, Creatinine 1.3H (improved) Nutritional Hx/Data Height 1.55 m Height (Calculated Centimeters) 154.9 Current Weight (lbs) 61.235 kg Weight (Calculated Kilograms) 61.2 Weight (Calculated Grams) 56671.0 [place] Body Weight 105 % [place] Body Weight 129 Recent Weight Change Yes Weight Status Approriate GI Symptoms GI Symptoms None Last BM Food Allergies No Cultural/Ethnic/Roman Catholic Belief No cultural or gnosticism beliefs verbalized. Usual diet at home Regular Skin Integrity/Comment: Kris 15. No skion breakdown. Current %PO Good (75-100%) Estimated Nutritional Goals BEE in Kcals: Using Current wt Calories/Kcals/Kg Based on CBW 61.4 kg (BMI appropriate with geriatric age ) Kcals Calculated 3333-0376 kcals/day (25-30 kcals/kg) Protein: Using Current wt Protein g/kg: Based on CBW 61.4 kg (BMI appropriate with geriatric age ) Protein Calculated 61 gm/day (1 gm/kg) Fluid: ml Per MD/DO due to severe dehydration Nutritional Problem 1. Problem Problem Food and nutrition-knowledge deficit related to Etiology lack of prior education as evidenced by Signs/Symptoms: pt unfamiliar with low sodium diet and unfamiliar that canned foods have high-sodium content. Malnutrition Alert Is there a minimum of two criteria No selected? Query Text:Check all the applicable criteria. A minimum of two criteria are recommended for diagnosis of either severe or non-severe malnutrition. Malnutrition Related to Morbid Obesity Malnutrition related to morbid obesity No Intervention/Recommendation Recommendations by RD Dietary Education by RD1 Comments 1. Continue with current diet. Will provide extra packets of Mrs. Lam per pt's request. 2. Educated pt on low sodium diet, provided handout with discussion. Pt verbalized understanding and reported RD that she will also have her daughter review. Daughter prepares food at home. Expected Outcomes/Goals Expected Outcomes/Goals Pt will be able to verbalized one item that is high in sodium that should be avoided. Physician Parameters for PEM Serum Albumin (g/dl) 3.1 - 3.4 (Mild) 12/23/16 18:55 Dietitian Notes by Christi Zheng Nutrition Note Initial Nutrition Assessment completed by Christi Zheng on 12/23/16. Please refer to nutrition assessment under Patient Care tab of EMR. Nutrition Interventions: 1. Continue with current diet. Will provide extra packets of Mrs. Lam per pt's request. 2. Educated pt on low sodium diet, provided handout with discussion. Pt verbalized understanding and reported RD that she will also have her daughter review. Daughter prepares food at home. F/U in 7 days as Low risk, 12/30. Initialized on 12/23/16 18:55 - END OF NOTE
[2016-12-26] MEDS: Piperacillin/Tazobact 2.25 gm in 0.9% NS 50 ML IV SCH ×4 (00:11→18:08)
[2016-12-26 06:02] LABS: HEMATOCRIT 27.9 % (35.0-45.0); HEMOGLOBIN 9.5 gm/dL (11.7-16.1); MEAN CELL VOLUME 85.9 fl (81-100); MEAN CORPUSCULAR HEMOGLOBIN 29.4 pg (27.0-31.0); MEAN CORPUSCULAR HGB CONC 34.2 pg (28.0-36.0); MEAN PLATELET VOLUME 11.4 fl; PLATELET COUNT 74 Th/cmm (150-400); RED BLOOD COUNT 3.25 Mil/cmm (3.80-5.20); RED CELL DISTRIBUTION WIDTH 13.1 % (11.5-20.0)
[2016-12-26 06:16] LABS: ANION GAP 6.5 (7.0-16.0); BUN - UREA NITROGEN 11 mg/dL (7-25); CALCIUM SERUM 8.1 mg/dL (8.6-10.3); CARBON DIOXIDE 21.7 mEq/L (21.0-31.0); CHLORIDE 115 mEq/L (98-107); GLUCOSE 84 mg/dL (70-105); POTASSIUM SERUM 4.2 mEq/L (3.5-5.1); SODIUM SERUM 139 mEq/L (136-145)
[2016-12-26 06:26] LABS: WHITE BLOOD COUNT 12.7 Th/cmm (4.8-10.8)
--- NOTE | 2016-12-26 07:32 | Progress Notes ---
SUBJECTIVE: The patient is awake and alert. The patient is on oxygen nasal cannula. The patient is on IV antibiotics. The patient is on IV fluids. The patient is receiving inpatient rehab therapy. OBJECTIVE: VITAL SIGNS: Temperature 97.1, pulse 85, blood pressure 121/59, respiratory rate 20, and O2 sat 96% on oxygen nasal cannula. CARDIOVASCULAR: S1 and S2. RESPIRATORY: Few rales. GASTROINTESTINAL: Soft. Positive bowel sounds. LABORATORY DATA: Hematology: WBC is 15.3, hemoglobin 10.0, hematocrit 28.4, platelet count per labs, 5% lymphocytes, and 34% monocytes. ESR is more than 140. Chemistry: Sodium per labs, potassium 3.4, chloride 112, bicarbonate 19.4, anion gap 8, BUN 10, and creatinine 0.9. GFR unavailable. Glucose 96, calcium is 8.4, phosphorus 3.1, mag is 1.7, and C-reactive protein 5.0. MICROBIOLOGY: Blood culture from December 19 shows no growth. MRSA screen from December 19 negative. Urine culture from December 19 shows no growth. ASSESSMENT: 1. Sepsis. 2. Leukocytosis. 3. Anemia. 4. Thrombocytopenia. 5. Hypokalemia. 6. Hypercalcemia. 7. Hypomagnesemia. 8. Urosepsis. 9. Weakness and debility. PLAN: Continue current medication and treatment. Obtain labs in a.m. Continue inpatient rehab therapy. Further evaluation per Hematology/Oncology. The patient's leukocytosis is secondary to urosepsis. counter manager for LTAC placement. JOB# [id number] [facility]ROAT HOSPITALArianna
[2016-12-26 09:07] LABS: BAND NEUTROPHILE 3 % (0-10); BASOPHIL 1 % (0-3); EOSINOPHIL 2 % (0-5); NEUTROPHILS 62 % (40-80); TOTAL CELLS COUNTED 100
[2016-12-26 09:08] LABS: ANISOCYTOSIS 1+; PLATELET ESTIMATE DECREASED PLATELETS (NORMAL); PLATELET MORPHOLOGY GIANT PLATELETS SEEN (NORMAL)
--- NOTE | 2016-12-26 11:03 | Diagnostic Imaging Report ---
Portable chest x-ray HISTORY: Pneumonia The overall heart size is difficult to assess with portable technique in a poor inspiration. No acute focal pulmonary processes. No hilar or mediastinal abnormalities. IMPRESSION: No acute focal pulmonary processes
--- NOTE | 2016-12-26 13:08 | General Progress Note ---
Subjective - Review of Systems Service Date: 12/26/16 Subjective: more alert, eating better per staff, participating w/ PT Objective - Results Result Diagrams: 12/26/16 05:11 12/26/16 05:11 Recent Labs: Laboratory Last Values WBC 12.7 Th/cmm (4.8-10.8) H 12/26/16 05:11 RBC 3.25 Mil/cmm (3.80-5.20) L 12/26/16 05:11 Hgb 9.5 gm/dL (11.7-16.1) L 12/26/16 05:11 Hct 27.9 % (35.0-45.0) L 12/26/16 05:11 MCV 85.9 fl (81-100) 12/26/16 05:11 MCH 29.4 pg (27.0-31.0) 12/26/16 05:11 MCHC Differential 34.2 pg (28.0-36.0) 12/26/16 05:11 RDW 13.1 % (11.5-20.0) 12/26/16 05:11 Plt Count 74 Th/cmm (150-400) L 12/26/16 05:11 MPV 11.4 fl 12/26/16 05:11 Band Neutrophils % 3 % (0-10) 12/26/16 05:11 Neutrophils (Manual) 62 % (40-80) 12/26/16 05:11 Lymphocytes 5 % (20-50) L 12/26/16 05:11 Monocytes 27 % (2-10) H 12/26/16 05:11 Eosinophils 2 % (0-5) 12/26/16 05:11 Basophils 1 % (0-3) 12/26/16 05:11 Metamyelocytes 1 % (0-0) H 12/23/16 05:10 Myelocytes 1 % 12/24/16 05:10 Platelet Estimate DECREASED PLATELETS (NORMAL) 12/26/16 05:11 Platelet Morphology GIANT PLATELETS SEEN (NORMAL) 12/26/16 05:11 Anisocytosis 1+ 12/26/16 05:11 RBC Morph Micro Appear ABNORMAL (NORMAL) 12/26/16 05:11 ESR 121 mm/hr (0-30) H 12/26/16 05:11 Eos Smear Source URINE 12/20/16 17:00 Eos Smear Total Cells NONE SEEN (NONE SEEN) 12/20/16 17:00 PT 12.5 SECONDS (9.5-11.5) H 12/19/16 17:44 INR 1.19 (0.5-1.4) 12/19/16 17:44 PTT (Actin FS) 36.3 SECONDS (26.0-38.0) 12/19/16 17:44 Sodium 139 mEq/L (136-145) 12/26/16 05:11 Potassium 4.2 mEq/L (3.5-5.1) 12/26/16 05:11 Chloride 115 mEq/L (98-107) H 12/26/16 05:11 Carbon Dioxide 21.7 mEq/L (21.0-31.0) 12/26/16 05:11 Anion Gap 6.5 (7.0-16.0) L 12/26/16 05:11 BUN 11 mg/dL (7-25) 12/26/16 05:11 Creatinine 1.0 mg/dL (0.6-1.2) 12/26/16 05:11 Est GFR ( Amer) TNP 12/26/16 05:11 Est GFR (Non-Af Amer) TNP 12/26/16 05:11 BUN/Creatinine Ratio 11.0 12/26/16 05:11 Glucose 84 mg/dL (70-105) 12/26/16 05:11 Whole Bld Lactic Acid 1.13 mmol/L (0.60-1.99) 12/19/16 17:44 Uric Acid 9.0 mg/dL (2.3-6.6) H 12/21/16 05:50 Calcium 8.1 mg/dL (8.6-10.3) L 12/26/16 05:11 Phosphorus 3.1 mg/dL (2.5-5.0) 12/25/16 04:50 Magnesium 2.0 mg/dL (1.9-2.7) 12/26/16 05:11 Total Bilirubin 0.3 mg/dL (0.3-1.0) 12/21/16 05:50 AST 16 U/L (13-39) 12/21/16 05:50 ALT 24 U/L (7-52) 12/21/16 05:50 Alkaline Phosphatase 166 U/L (34-104) H 12/21/16 05:50 Creatine Kinase 8 U/L (30-223) L 12/19/16 17:44 C-Reactive Protein 5.0 mg/dL (0.0-0.9) H 12/25/16 04:50 Total Protein 7.1 gm/dL (6.0-8.3) 12/21/16 05:50 Albumin 3.2 gm/dL (3.7-5.3) L 12/21/16 05:50 Globulin 3.9 gm/dL 12/21/16 05:50 Albumin/Globulin Ratio 0.8 (1.0-1.8) L 12/21/16 05:50 Urine Source CATH 12/19/16 18:40 Urine Color YELLOW 12/19/16 18:40 Urine Clarity HAZY (CLEAR) 12/19/16 18:40 Urine pH 5.0 12/19/16 18:40 Ur Specific [place] 1.020 (1.005-1.030) 12/19/16 18:40 Urine Protein 30 mg/dL (NEGATIVE) H 12/19/16 18:40 Urine Glucose (UA) NEGATIVE mg/dL (NEGATIVE) 12/19/16 18:40 Urine Ketones NEGATIVE mg/dL (NEGATIVE) 12/19/16 18:40 Urine Blood NEGATIVE (NEGATIVE) 12/19/16 18:40 Urine Nitrate NEGATIVE (NEGATIVE) 12/19/16 18:40 Urine Bilirubin NEGATIVE (NEGATIVE) 12/19/16 18:40 Urine Urobilinogen 0.2 E.U./dL (0.2 - 1.0) 12/19/16 18:40 Ur Leukocyte Esterase NEGATIVE (NEGATIVE) 12/19/16 18:40 Urine RBC NONE SEEN /hpf (0-5) 12/19/16 18:40 Urine WBC 0-2 /hpf (0-5) 12/19/16 18:40 Ur Epithelial Cells OCCASIONAL /lpf (FEW) 12/19/16 18:40 Amorphous Sediment MODERATE URATES (NONE SEEN) 12/19/16 18:40 Urine Bacteria FEW /hpf (NONE SEEN) 12/19/16 18:40 Hyaline Casts 0-2 /lpf (0-2) H 12/19/16 18:40 Ur Random Sodium 101 mmol/L 12/20/16 17:00 Urine Creatinine 53.0 mg/dl (28.0-217.0) 12/20/16 17:00 - Physical Exam Vitals and I&O: Vital Signs Temp 97.8 F 12/26/16 11:19 Pulse 90 12/26/16 11:19 Resp 18 12/26/16 12:00 BP 136/79 12/26/16 11:19 Pulse Ox 94 12/26/16 11:19 Intake & Output 12/25/16 12/26/16 12/26/16 18:59 06:59 18:59 Intake Total 1999 300 Balance 1999 300 Intake: Intake, IV Amount 150 100 Piperacillin Sodium/ 100 100 Tazobact 2.25 gm In Sodium Chloride 0.9% 50 ml @ 100 mls/hr IV Q6H BRITTANY Rx#:[id number] Oral 1850 200 Other: # Voids 4 # Bowel Movements 1 1 Stool Characteristics Soft Soft Soft Active Medications: Current Medications Acetaminophen (Tylenol) 650 mg PO Q6H PRN PRN Reason: Mild Pain/Headache/T above 101 Stop: 02/17/17 20:42 Last Admin: 12/19/16 21:46 Dose: 650 mg Acetaminophen/Hydrocodone Bitart ([place] 10 Mg/325 Mg) 1 tab PO Q6H PRN PRN Reason: Pain (Severe) Stop: 02/17/17 20:42 Last Admin: 12/25/16 20:00 Dose: 1 tab Acetaminophen/Hydrocodone Bitart ([place] 5mg/325mg) 1 tab PO Q6H PRN PRN Reason: Moderate Pain Stop: 02/17/17 20:42 Last Admin: 12/19/16 23:17 Dose: 1 tab Al Hydrox/Mg Hydrox/Simethicone (Maalox) 30 ml PO Q6H PRN PRN Reason: Constipation Stop: 02/17/17 20:42 Piperacillin Sod/Tazobactam (Sod 2.25 gm/ Sodium Chloride) 50 mls @ 100 mls/hr IV Q6H BRITTANY Stop: 02/21/17 17:59 Last Admin: 12/26/16 11:39 Dose: 100 mls/hr Lorazepam (Ativan) 1 mg PO Q6H PRN; Protocol PRN Reason: Anxiety/Agitation Stop: 02/17/17 20:42 Magnesium Hydroxide (Milk Of Magnesia) 30 ml PO HS PRN PRN Reason: Constipation Stop: 02/17/17 20:42 Miscellaneous (Clinical Monitoring) 1 ea MC DAILY PRN PRN Reason: RENAL DOSE ZOSYN Stop: 02/18/17 09:26 Ondansetron HCl (Zofran Odt) 4 mg PO Q6H PRN PRN Reason: Nausea / Vomiting Stop: 02/17/17 20:42 Sodium Bicarbonate (Sodium Bicarbonate) 650 mg PO BID BRITTANY PRN Reason: Protocol Stop: 02/20/17 16:59 Last Admin: 12/26/16 09:12 Dose: 650 mg Trazodone HCl (Desyrel) 100 mg PO HS PRN; Protocol PRN Reason: Insomnia Stop: 02/17/17 20:59 Last Admin: 12/25/16 22:19 Dose: 100 mg General: Alert, No acute distress HEENT: Atraumatic, Mucous membr. moist/pink Neck: Supple, +2 carotid pulse wo bruit Cardiovascular: Regular rate, Normal S1, Normal S2 Lungs: Other (scattered rhonchi) Abdomen: Bowel sounds, Soft Extremities: no Edema Neurological: Sensation intact Skin: no Rash Assessment/Plan - Problem List Patient Problems: All Active Problems HYPOTENSIVE EPISODE AT HOME (Acute) - Assessment Assessment: TESSY Dehydration FTT recurrent UTI Alzheimer Dementia S/P CVA no residual Non gap Met acid Thrombocytopenia Persistent Leukocytosis - Plan Plan: Lab - Result Diagrams 12/21/16 05:44 Lab - Result Diagrams 12/23/16 05:10 Lab - Result Diagrams 12/24/16 05:10 12/24/16 05:10 12/23/16 05:10 12/21/16 05:50 Current Medications Acetaminophen (Tylenol) 650 mg PO Q6H PRN PRN Reason: Mild Pain/Headache/T above 101 Stop: 02/17/17 20:42 Last Admin: 12/19/16 21:46 Dose: 650 mg Acetaminophen/Hydrocodone Bitart ([place] 10 Mg/325 Mg) 1 tab PO Q6H PRN PRN Reason: Pain (Severe) Stop: 02/17/17 20:42 Acetaminophen/Hydrocodone Bitart ([place] 5mg/325mg) 1 tab PO Q6H PRN PRN Reason: Moderate Pain Stop: 02/17/17 20:42 Last Admin: 12/19/16 23:17 Dose: 1 tab Al Hydrox/Mg Hydrox/Simethicone (Maalox) 30 ml PO Q6H PRN PRN Reason: Constipation Stop: 02/17/17 20:42 Dextrose/Sodium Chloride (D5-0.9%Ns) 1,000 mls @ 100 mls/hr IV .Q10H BRITTANY Stop: 02/17/17 20:59 Last Admin: 12/20/16 08:45 Dose: 100 mls/hr Piperacillin Sod/Tazobactam (Sod 3.375 gm/ Sodium Chloride) 50 mls @ 100 mls/ hr IV Q6HR BRITTANY Stop: 02/18/17 17:59 Last Infusion: 12/21/16 13:42 Dose: Infused Lorazepam (Ativan) 1 mg PO Q6H PRN; Protocol PRN Reason: Anxiety/Agitation Stop: 02/17/17 20:42 Magnesium Hydroxide (Milk Of Magnesia) 30 ml PO HS PRN PRN Reason: Constipation Stop: 02/17/17 20:42 Miscellaneous (Clinical Monitoring) 1 ea MC DAILY PRN PRN Reason: RENAL Stop: 02/18/17 09:26 Ondansetron HCl (Zofran Odt) 4 mg PO Q6H PRN PRN Reason: Nausea / Vomiting Stop: 02/17/17 20:42 Trazodone HCl (Desyrel) 100 mg PO HS PRN; Protocol PRN Reason: Insomnia Stop: 02/17/17 20:59 kidney fnc gradually improving w/BUN/CR of 11/0.9 DC hydration, started to drink per staff eating 50%-70% of meals encouraged po intake improving leukocytosis @ 12.7 continue PT Nutritional Asmnt/Malnutr-PDOC - Dietary Evaluation Malnutrition Findings (Please click <Entered> for more info): Nutritional Asmnt/Malnutrition Start: 12/23/16 18: 46 Text: Status: Complete Freq: Document 12/23/16 18:46 [facility] (Rec: 12/23/16 18:55 [facility] [id number]) Nutritional Asmnt/Malnutrition Patient General Information Nutritional Screening Moderate Risk Screening Diagnosis Dehydration (severe), acute kidney injury, altered mental status Pertinent Medical Hx/Surgical Hx HTN, CVA, dementia Subjective Information Pt is a 71-year-old female admitted with chief complaint of low blood pressure. Pt was awake and alert during time of visit; pt is a good historian . Pt appears well nourished with no signs of muscle or fat depletion. Pt is unsure of UBW, but pt suspects wt loss since last wt measurement at doctor's office a few weeks ago. Pt reports she hardly ate for 2 days prior to admit due to dehydration and confusion. RD offered diet education. Pt accepted and was receptive. Current Diet Order/ Nutrition Support Cardiac Patient / S.O Can Pertinent Medications D5-0.9Ns, Zofran, Zosyn Pertinent Labs (12/22) Mg 1.5L (12/23) K 3.4L, Creatinine 1.3H (improved) Nutritional Hx/Data Height 1.55 m Height (Calculated Centimeters) 154.9 Current Weight (lbs) 61.235 kg Weight (Calculated Kilograms) 61.2 Weight (Calculated Grams) 52560.0 Perry Body Weight 105 % Perry Body Weight 129 Recent Weight Change Yes Weight Status Approriate GI Symptoms GI Symptoms None Last BM Food Allergies No Cultural/Ethnic/Restorationist Belief No cultural or pentecostal beliefs verbalized. Usual diet at home Regular Skin Integrity/Comment: Kris 15. No skion breakdown. Current %PO Good (75-100%) Estimated Nutritional Goals BEE in Kcals: Using Current wt Calories/Kcals/Kg Based on CBW 61.4 kg (BMI appropriate with geriatric age ) Kcals Calculated 3623-9358 kcals/day (25-30 kcals/kg) Protein: Using Current wt Protein g/kg: Based on CBW 61.4 kg (BMI appropriate with geriatric age ) Protein Calculated 61 gm/day (1 gm/kg) Fluid: ml Per MD/DO due to severe dehydration Nutritional Problem 1. Problem Problem Food and nutrition-knowledge deficit related to Etiology lack of prior education as evidenced by Signs/Symptoms: pt unfamiliar with low sodium diet and unfamiliar that canned foods have high-sodium content. Malnutrition Alert Is there a minimum of two criteria No selected? Query Text:Check all the applicable criteria. A minimum of two criteria are recommended for diagnosis of either severe or non-severe malnutrition. Malnutrition Related to Morbid Obesity Malnutrition related to morbid obesity No Intervention/Recommendation Recommendations by RD Dietary Education by RD1 Comments 1. Continue with current diet. Will provide extra packets of Mrs. Lam per pt's request. 2. Educated pt on low sodium diet, provided handout with discussion. Pt verbalized understanding and reported RD that she will also have her daughter review. Daughter prepares food at home. Expected Outcomes/Goals Expected Outcomes/Goals Pt will be able to verbalized one item that is high in sodium that should be avoided. Physician Parameters for PEM Serum Albumin (g/dl) 3.1 - 3.4 (Mild) 12/23/16 18:55 Dietitian Notes by Christi Zheng Nutrition Note Initial Nutrition Assessment completed by Christi Zheng on 12/23/16. Please refer to nutrition assessment under Patient Care tab of EMR. Nutrition Interventions: 1. Continue with current diet. Will provide extra packets of Mrs. Lam per pt's request. 2. Educated pt on low sodium diet, provided handout with discussion. Pt verbalized understanding and reported RD that she will also have her daughter review. Daughter prepares food at home. F/U in 7 days as Low risk, 12/30. Initialized on 12/23/16 18:55 - END OF NOTE
[2016-12-27] MEDS: Piperacillin/Tazobact 2.25 gm in 0.9% NS 50 ML IV SCH ×2 (00:03→05:16)
--- NOTE | 2016-12-27 01:48 | Progress Notes ---
SUBJECTIVE: The patient is awake and alert. The patient is on room air. The patient is on IV antibiotics. The patient is receiving inpatient rehab therapy. OBJECTIVE: VITAL SIGNS: Temperature 98.3, pulse 88, blood pressure 129/77, respiratory rate 18, and O2 sat is 96% on room air. CARDIOVASCULAR: S1 and S2. RESPIRATORY: Clear. GASTROINTESTINAL: Soft and positive bowel sounds. LABORATORY DATA: Hematology: WBC 12.7, hemoglobin is 9.5, hematocrit 27.9, platelet count of 74,000, 5% lymphocytes. ESR 121. Chemistry: Sodium 139, potassium 4.2, chloride per labs, anion gap 6.5. BUN 11 , creatinine 1.0. GFR unavailable. Glucose is 84. Calcium 8.1. Magnesium is 2.0. C-reactive protein is 4.3. MICROBIOLOGY: Blood culture from 12/19/2016 negative. MRSA screen from 12/19/2016 is negative. Urine culture from 12/19/2016 shows no growth. Urine culture from 12/25/2016 shows no growth. ASSESSMENT: 1. Leukocytosis. 2. Anemia. 3. Thrombocytopenia. 5. Sepsis. 6. Urinary tract infection. 7. Debility. PLAN: Continue current medication and treatment. Obtain labs in a. Continue inpatient rehab therapy. Further recommendation per consultants. [facility]. JOB# [id number] CARLY
[2016-12-27 06:23] LABS: WHITE BLOOD COUNT 12.9 Th/cmm (4.8-10.8)
[2016-12-27 06:24] LABS: HEMATOCRIT 28.6 % (35.0-45.0); HEMOGLOBIN 9.8 gm/dL (11.7-16.1); MEAN CELL VOLUME 84.6 fl (81-100); MEAN CORPUSCULAR HEMOGLOBIN 28.9 pg (27.0-31.0); MEAN CORPUSCULAR HGB CONC 34.2 pg (28.0-36.0); MEAN PLATELET VOLUME 11.5 fl; PLATELET COUNT 80 Th/cmm (150-400); RED BLOOD COUNT 3.38 Mil/cmm (3.80-5.20); RED CELL DISTRIBUTION WIDTH 12.6 % (11.5-20.0)
[2016-12-27 06:29] LABS: ANION GAP 8.8 (7.0-16.0); BUN - UREA NITROGEN 14 mg/dL (7-25); BUN/CREATININE RATIO 15.6; CALCIUM SERUM 8.8 mg/dL (8.6-10.3); CHLORIDE 107 mEq/L (98-107); CREATININE - SERUM 0.9 mg/dL (0.6-1.2); GLUCOSE 96 mg/dL (70-105); POTASSIUM SERUM 3.8 mEq/L (3.5-5.1); SODIUM SERUM 136 mEq/L (136-145)
[2016-12-27 09:21] LABS: BAND NEUTROPHILE 5 % (0-10); EOSINOPHIL 1 % (0-5); NEUTROPHILS 54 % (40-80); TOTAL CELLS COUNTED 100
[2016-12-27 09:22] LABS: ANISOCYTOSIS 1+; PLATELET ESTIMATE DECREASED PLATELETS (NORMAL); PLATELET MORPHOLOGY GIANT PLATELETS SEEN (NORMAL); POLYCHROMASIA 1+
--- NOTE | 2017-01-04 22:50 | Discharge Summary ---
DISCHARGE DIAGNOSES: 1. Sepsis. 2. Leukocytosis. 3. Anemia. 4. Thrombocytopenia. 5. Hypokalemia. 6. Calcemia and hypomagnesemia. 3. Urosepsis. 5. Weakness. HOSPITAL COURSE: The patient is a 71-year-old white female who was sent from her medical group ([employer]). The patient admitted with diagnosis of dehydration, severe; acute kidney injury, altered mental status, hypertension, leukocytosis, hyponatremia, hyperglycemia, transaminitis, CVA and dementia. The patient was admitted to telemetry unit. Consultation obtained. Nephrology consultation with Dr. Smith who recommended the patient has acute kidney injury and IV fluids. The patient ordered for urine culture and urine electrolytes along with renal ultrasound. Infectious consultation obtained with Dr. Siena Linares who recommended the patient be placed on empiric coverage with Zosyn. The patient was cherry cultured. Hematology consultation team, Dr. Almaguer for patient thrombocytopenia and leukocytosis. Recommendation is obtain all of the patient's hematology records. The patient has thrombocytopenia secondary to urosepsis and Zosyn. The patient was discharged to [facility] on 12/27/2016. The patient to continue with inpatient IV antibiotics along with inpatient rehab therapy. [facility]# [id number] [facility]
== END 2016-12-27 10:30 | DRG 871 ==
LOC: ER 17:25 → TELE 18:50
PROVIDERS: ADMIT Preventive Medicine Preventive Medicine/Occupational Environmental Medicine; ATTEND Preventive Medicine Preventive Medicine/Occupational Environmental Medicine
DX: A41.9 Sepsis, unspecified organism (principal); G93.41 Metabolic encephalopathy; N17.9 Acute kidney failure, unspecified; J90 Pleural effusion, not elsewhere classified; E87.1 Hypo-osmolality and hyponatremia; N39.0 Urinary tract infection, site not specified; N13.2 Hydronephrosis with renal and ureteral calculous obstruction; E86.0 Dehydration; R73.9 Hyperglycemia, unspecified; G30.9 Alzheimer's disease, unspecified; F02.80 Dementia in other diseases classified elsewhere, unspecified severity, without behavioral disturbance, psychotic disturbance, mood disturbance, and anxiety; D47.3 Essential (hemorrhagic) thrombocythemia; N18.9 Chronic kidney disease, unspecified; I12.9 Hypertensive chronic kidney disease with stage 1 through stage 4 chronic kidney disease, or unspecified chronic kidney disease; D64.9 Anemia, unspecified; E79.0 Hyperuricemia without signs of inflammatory arthritis and tophaceous disease; R62.7 Adult failure to thrive; E83.42 Hypomagnesemia; M62.81 Muscle weakness (generalized); E87.6 Hypokalemia; E83.52 Hypercalcemia; Z86.73 Personal history of transient ischemic attack (TIA), and cerebral infarction without residual deficits; Z90.49 Acquired absence of other specified parts of digestive tract; Z82.49 Family history of ischemic heart disease and other diseases of the circulatory system
CPT/HCPCS: 36415-UA; 70450-TC; 71010-TC; 76700-TC; 76770-TC; 80048-TC; 80053-TC; 81001-TC; 81015-TC; 82550-TC; 82570-TC; 83605; 83735-TC; 84100-TC; 84300-TC; 84550-TC; 85007-TC; 85027-TC; 85610-TC; 85652-TC; 85730-TC; 86141-TC; 87075-90; 87086-90; 87205-90; 93005; 97530; J0696; J2543; J3475; J7030; J7042; X3904; Z7610

== ENCOUNTER 2017-01-28 12:41 | Inpatient (IN) | payer MEDICARE ==
--- NOTE | 2017-01-28 13:04 | ED Physician Chart ---
Chief Complaint/HPI - Patient Information Date Seen:: 01/28/17 Time Seen:: 13:03 Chief Complaint:: NAUSEA, VOMITING, DIARRHEA and FEVER Allergies:: Allergies Allergy/AdvReac Type Severity Reaction Status Date / Time No Known Allergies Allergy Verified 12/19/16 17:41 The patient started feeling ill yesterday and was complaining of weakness. The patient's daughter noticed the patient had some mild confusion last evening. Starting last evening the patient had nausea, 2 episodes of vomiting and 2 episodes of diarrhea. Symptoms were not accompanied by any chills, diaphoresis , abdominal pain, dysuria, or urinary frequency. The patient did have what sounded like a productive cough during the night. Patient was hospitalized approximately one month ago for a CVA which involved her left side. During the hospitalization she was treated for a C. difficile infection. The patient also has a history of frequent urinary tract infections. She denies any chest pain or respiratory distress. The patient's daughter noticed that she had decreased appetite and fluid intake as of yesterday. Review of Systems - Review of Systems General/Constitutional: Fever, No chills, No weight loss, Weakness (the weakness is generalized.), No diaphoresis, No edema, Loss of appetite Skin: Skin lesions, No skin lesions, No rash, No bruising Head: No headache, No light-headedness Eyes: No loss of vision, No diplopia ENT: No earache, No nasal drainage, No sore throat Neck: No neck pain, No swelling, No thyromegaly, No stiffness, No mass noted Cardio Vascular: No chest pain, No PND, No orthopnea, No edema Pulmonary: No SOB, Cough, No sputum, No wheezing GI: Nausea, Vomiting, Diarrhea, No pain, No hematemesis G/U: No dysuria, No frequency, No hematuria 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 No facial asymmetry.), No paresthesia, No headache, No seizure, Confusion, No vertigo Past Medical History - Past Medical History Past Medical History: HTN, CVA/TIA, Dyslipidemia Social History: No Alcohol, No Drug Use, Other (The patient lives with her daughter.) Family Medical History - Family Member Mother History Unknown: Yes Ethnicity: Living Status: Hx Family Cancer: No Hx Family Coronary Artery Disease: No Hx Family Congestive Heart Failure: No Hx Family Hypertension: No Hx Family Stroke: No Hx Family Diabetes: Yes Hx Family Seizures: No Hx Family Dementia: No Hx Family AIDS: No Hx Family HIV: No Hx Family COPD: No Hx Family Hepatitis: No Hx Family Psychiatric Problems: No Hx Family Tuberculosis: No Physical Exam - Physical Examination General/Constitutional: Awake, Well-developed, well-nourished, Alert, No distress, Non-toxic appearing Other Gen/Cons comments:: NON-AMBULATORY Head: Atraumatic Eyes: Lids, conjuctiva normal, PERRL, EOMI Skin: Nl inspection, No rash, No skin lesions, No ecchymosis, No lymphadenopathy ENMT: External ears, nose nl, Nasal exam nl, Lips, teeth, gums nl, Oropharynx nl , Tonsils nl Neck: Nontender, Full ROM w/o pain, No JVD, No nuchal rigidity Respiratory: Nl effort/Exclusion Other Respiratory comments:: The patient has few scattered ronchi. No rales were appreciated. Cardio Vascular: RRR, No murmur, gallop, rubs, NL S1 S2 Other Cardio Vascular comments:: Pulse is adequate in all four extremities. GI: No tenderness/rebounding/guarding, No organomegaly, No hernia, Normal BS's, Nondistended, No mass/bruits, No McBurney tenderness Other GI comments:: Rectal examination deferred at my discretion. : No CVA tenderness Extremities: No tenderness or effusion, Full ROM, No edema Other Extremities comments:: Patient has some weakness in the left upper extremity and the left lower extremity when compared to the right side. This is probably the residual from the stroke the patient had approximately a month ago. Neuro/Psych: Normal sensory exam Other Neuro/Psych comments:: The patient was awake and alert but seems slightly confused. She answered questions slowly. No facial asymmetry appreciated. EOMs intact. Uvula was in the midline. Tongue protruded in the midline. Misc: Normal back, No paraspinal tenderness Labs/Radiology/EKG Results - Lab Results Results: Single view AP chest x-ray: No cardiomegaly and no CHF. There is atelectasis in the left base versus a possible pleural effusion on the left. No areas of pulmonary consolidation noted. No pneumothorax. No mediastinal widening. Impression: No acute cardiopulmonary findings. Laboratory Results - last 24 hr 01/28/17 01/28/17 01/28/17 13:16 13:16 13:16 WBC 27.7 H* D RBC 4.65 Hgb 13.2 D Hct 38.8 D MCV 83.4 MCH 28.4 MCHC Differential 34.0 RDW 14.5 Plt Count 77 L MPV 11.4 Band Neutrophils % 4 Neutrophils (Manual) 82 H Lymphocytes 6 L Monocytes 8 Platelet Estimate DECREASED PLATELETS Platelet Morphology GIANT PLATELETS SEEN RBC Morph Micro Appear NORMAL Sodium 134 L Potassium 3.3 L Chloride 103 Carbon Dioxide 20.1 L Anion Gap 14.2 BUN 14 Creatinine 0.8 Est GFR ( Amer) TNP Est GFR (Non-Af Amer) TNP BUN/Creatinine Ratio 17.5 Glucose 114 H Whole Bld Lactic Acid 1.43 Calcium 9.3 Total Bilirubin 1.1 H AST 17 ALT 12 Alkaline Phosphatase 123 H Total Protein 8.6 H Albumin 3.6 L Globulin 5.0 Albumin/Globulin Ratio 0.7 L The CBC shows a marked leukocytosis in the 27,000 range. There is no anemia but the platelet count is moderately depressed. Renal function is normal. The whole blood lactic acid is within the normal range. There is mild elevation of the alkaline phosphatase and the total bilirubin. The AST and ALT are both within normal range. UA results are still pending at the time of this notation. Laboratory Tests 01/28/17 01/28/17 01/28/17 13:16 13:16 13:16 WBC 27.7 H* D RBC 4.65 Hgb 13.2 D Hct 38.8 D MCV 83.4 MCH 28.4 MCHC Differential 34.0 RDW 14.5 Plt Count 77 L MPV 11.4 Band Neutrophils % 4 Neutrophils (Manual) 82 H Lymphocytes 6 L Monocytes 8 Platelet Estimate DECREASED PLATELETS Platelet Morphology GIANT PLATELETS SEEN RBC Morph Micro Appear NORMAL Sodium 134 L Potassium 3.3 L Chloride 103 Carbon Dioxide 20.1 L Anion Gap 14.2 BUN 14 Creatinine 0.8 Est GFR ( Amer) TNP Est GFR (Non-Af Amer) TNP BUN/Creatinine Ratio 17.5 Glucose 114 H Whole Bld Lactic Acid 1.43 Calcium 9.3 Total Bilirubin 1.1 H AST 17 ALT 12 Alkaline Phosphatase 123 H Total Protein 8.6 H Albumin 3.6 L Globulin 5.0 Albumin/Globulin Ratio 0.7 L Urine Source Urine Color Urine Clarity Urine pH Ur Specific [place] Urine Protein Urine Glucose (UA) Urine Ketones Urine Blood Urine Nitrate Urine Bilirubin Urine Urobilinogen Ur Leukocyte Esterase Urine RBC Urine WBC Ur Epithelial Cells Urine Bacteria 01/28/17 14:00 WBC RBC Hgb Hct MCV MCH MCHC Differential RDW Plt Count MPV Band Neutrophils % Neutrophils (Manual) Lymphocytes Monocytes Platelet Estimate Platelet Morphology RBC Morph Micro Appear Sodium Potassium Chloride Carbon Dioxide Anion Gap BUN Creatinine Est GFR ( Amer) Est GFR (Non-Af Amer) BUN/Creatinine Ratio Glucose Whole Bld Lactic Acid Calcium Total Bilirubin AST ALT Alkaline Phosphatase Total Protein Albumin Globulin Albumin/Globulin Ratio Urine Source RANDOM Urine Color YELLOW Urine Clarity CLOUDY H Urine pH 5.5 Ur Specific [place] Urine Protein 100 H Urine Glucose (UA) NEGATIVE Urine Ketones 15 H Urine Blood MODERATE H Urine Nitrate POSITIVE H Urine Bilirubin SMALL H Urine Urobilinogen 0.2 Ur Leukocyte Esterase LARGE H Urine RBC 5-10 H Urine WBC >100 H Ur Epithelial Cells FEW Urine Bacteria MANY The urinalysis shows greater than 100 white cells per high-power field and many bacteria. Patient has large leukocyte esterase and positive nitrates. These findings are consistent with an acute UTI. Patient will be started on IV ceftriaxone and Levaquin. Assessment - Assessment General Assessment: CASE SUMMARY: THE 71-YEAR-OLD FEMALE BECAME SICK OVER THE PAST TWO DAYS WITH INCREASED DECREASED ORAL INTAKE OF BOTH FOOD AND LIQUIDS. The patient had a stroke one month ago with residual weakness on the left side. She denied any chest pain, respiratory distress, dysuria, urinary frequency, or hematuria. Laboratory studies returned showing a marked leukocytosis in the 27,000 range. Her urine was positive for greater than 100 white cells in many bacteria. A diagnosis of renal sepsis was made patient was treated with IV ceftriaxone and Levaquin. In addition the patient received 30 mL per kilogram normal saline. The admitting physician will be Dr. Alarcon and he was contacted. The patient will be admitted to a telemetry bed for continuation of treatment of prism sepsis. Patient not in septic shock. MDM DDX of fever and generalized weakness: NOT Pneumonia based on chest x-ray and alternate confirmed diagnosis of Acute UTI. NOT Meningitis based on exam and alternate confirmed diagnosis of Acute UTI. ED Septic Shock - . Is Septic Shock (SBP<90, OR Lactate>4 mmol\L) present?: No Reassessment (Disposition) - Reassessment Reassessment Condition:: Improved - Diagnosis Diagnosis:: 1) ACUTE URO SEPSIS 2) HYPERTENSION BY HISTORY 3) HYPERLIPIDEMIA 4) STATUS POST CVA WITH LEFT SIDED RESIDUAL The 71-year-old female was admitted to a telemetry bed to Dr. Alarcon's service. Vital signs were stable at the time of transfer. ED Discharge Plan - Patient Disposition Admit/Discharge/Transfer: Acute Care w/in this hosp Condition at Disposition: Stable
[2017-01-28] MEDS ORDERED: Sodium Chloride 0.9% 1,000 ML IV ONE (13:11)
[2017-01-28 13:37] LABS: MEAN CELL VOLUME 83.4 fl (81-100); MEAN CORPUSCULAR HEMOGLOBIN 28.4 pg (27.0-31.0); MEAN PLATELET VOLUME 11.4 fl; PLATELET COUNT 77 Th/cmm (150-400); RED BLOOD COUNT 4.65 Mil/cmm (3.80-5.20); RED CELL DISTRIBUTION WIDTH 14.5 % (11.5-20.0)
[2017-01-28 13:42] LABS: HEMATOCRIT 38.8 % (35.0-45.0); HEMOGLOBIN 13.2 gm/dL (11.7-16.1); WHITE BLOOD COUNT 27.7 Th/cmm (4.8-10.8)
[2017-01-28 13:55] LABS: ALB/GLOB RATIO 0.7 (1.0-1.8); ALKALINE PHOSPHATASE 123 U/L (34-104); ANION GAP 14.2 (7.0-16.0); BILIRUBIN,TOTAL 1.1 mg/dL (0.3-1.0); BUN - UREA NITROGEN 14 mg/dL (7-25); BUN/CREATININE RATIO 17.5; CALCIUM SERUM 9.3 mg/dL (8.6-10.3); CARBON DIOXIDE 20.1 mEq/L (21.0-31.0); CHLORIDE 103 mEq/L (98-107); CREATININE - SERUM 0.8 mg/dL (0.6-1.2); GLUCOSE 114 mg/dL (70-105); POTASSIUM SERUM 3.3 mEq/L (3.5-5.1); SGOT 17 U/L (13-39); SGPT/ALT 12 U/L (7-52); SODIUM SERUM 134 mEq/L (136-145)
[2017-01-28 14:01] LABS: BAND NEUTROPHILE 4 % (0-10); NEUTROPHILS 82 % (40-80); PLATELET ESTIMATE DECREASED PLATELETS (NORMAL); PLATELET MORPHOLOGY GIANT PLATELETS SEEN (NORMAL); TOTAL CELLS COUNTED 100
[2017-01-28 14:20] LABS: URINE BILIRUBIN SMALL (NEGATIVE); URINE BLOOD MODERATE (NEGATIVE); URINE COLOR YELLOW; URINE GLUCOSE (UA) NEGATIVE (NEGATIVE); URINE KETONE 15 mg/dL (NEGATIVE)
[2017-01-28 14:21] LABS: URINE BACTERIA MANY /hpf (NONE SEEN); URINE EPITHELIAL CELLS FEW /lpf (FEW); URINE PH 5.5; URINE PROTEIN 100 mg/dL (NEGATIVE); URINE UROBILINOGEN 0.2 E.U./dL (0.2 - 1.0)
[2017-01-28 14:22] LABS: URINE WBC >100 /hpf (0-5)
[2017-01-28] MEDS ORDERED: cefTRIAXone 2 GM in Sodium Chloride 0.9% 100 ML IV ONE (14:25)
[2017-01-28] MEDS ORDERED: Levofloxacin 500mg/100mL 500 MG/100 ML BAG IV ONE ×2 (14:26→15:28)
[2017-01-28 15:24] VITALS: BP 131/70
[2017-01-28] MEDS ORDERED: Hydrocodone/APAP 5mg/325mg Tab PO PRN (15:52)
[2017-01-28] MEDS ORDERED: Sodium Phos / Potassium Phos 1.25 GM PACK PO SCH (17:00)
[2017-01-28] MEDS ORDERED: Levofloxacin 500mg/100mL 500 MG/100 ML BAG IV SCH (21:00)
[2017-01-29 07:45] LABS: HEMOGLOBIN 11.5 gm/dL (11.7-16.1); MEAN CELL VOLUME 84.4 fl (81-100); MEAN CORPUSCULAR HEMOGLOBIN 28.5 pg (27.0-31.0); MEAN CORPUSCULAR HGB CONC 33.8 pg (28.0-36.0); MEAN PLATELET VOLUME 11.9 fl; RED BLOOD COUNT 4.03 Mil/cmm (3.80-5.20); RED CELL DISTRIBUTION WIDTH 14.7 % (11.5-20.0)
[2017-01-29 08:11] LABS: ALB/GLOB RATIO 0.7 (1.0-1.8); ALKALINE PHOSPHATASE 97 U/L (34-104); ANION GAP 13.5 (7.0-16.0); BILIRUBIN,TOTAL 0.5 mg/dL (0.3-1.0); BUN - UREA NITROGEN 22 mg/dL (7-25); CALCIUM SERUM 8.9 mg/dL (8.6-10.3); CARBON DIOXIDE 18.4 mEq/L (21.0-31.0); CHLORIDE 107 mEq/L (98-107); CREATININE - SERUM 1.1 mg/dL (0.6-1.2); GLUCOSE 101 mg/dL (70-105); MAGNESIUM 1.7 mg/dL (1.9-2.7); SGOT 14 U/L (13-39); SGPT/ALT 13 U/L (7-52); SODIUM SERUM 136 mEq/L (136-145)
[2017-01-29] MEDS: Pantoprazole 40 mg EC Tab PO SCH (08:29)
[2017-01-29] MEDS: Levothyroxine 0.112 Mg Tab PO SCH (08:32)
[2017-01-29 08:36] LABS: WHITE BLOOD COUNT 26.6 Th/cmm (4.8-10.8)
[2017-01-29 08:57] LABS: POTASSIUM SERUM 2.9 mEq/L (3.5-5.1)
--- NOTE | 2017-01-29 09:11 | Diagnostic Imaging Report ---
Portable chest x-ray HISTORY: Fever, pneumonia Heart size is difficult to assess with portable technique in a poor inspiration. Accentuation of interstitial markings in the left lung base. Early infiltrate not be definitely excluded. Clinical correlation needed. No hilar or mediastinal abnormalities. Degenerative changes seen to the spine. IMPRESSION: 1. Accentuation of interstitial markings within the left lung base. Early infiltrate cannot be definitely excluded. Clinical correlation needed.
[2017-01-29] MEDS ORDERED: Potassium Chloride 20 mEq ER Tab PO ONE (09:21)
[2017-01-29 11:47] LABS: BAND NEUTROPHILE 3 % (0-10); NEUTROPHILS 81 % (40-80); PLATELET ESTIMATE DECREASED PLATELETS (NORMAL); PLATELET MORPHOLOGY GIANT PLATELETS SEEN (NORMAL); TOTAL CELLS COUNTED 100
[2017-01-29] MEDS ORDERED: Potassium Chloride 20 mEq ER Tab PO SCH (14:05)
[2017-01-29] MEDS: Levofloxacin 250 mg/50 mL Premix Bag IV SCH (14:20)
[2017-01-29] MEDS ORDERED: Levofloxacin 500mg/100mL 500 MG/100 ML BAG IV SCH (15:00)
[2017-01-29] MEDS ORDERED: cefTRIAXone 2 GM in Sodium Chloride 0.9% 100 ML IV SCH (16:00)
--- NOTE | 2017-01-30 00:10 | History & Physical ---
ADMIT DATE: 01/28/2017 REASON FOR ADMISSION: Sepsis (urosepsis). HISTORY OF PRESENT ILLNESS: The patient is a 71-year-old female with 8-year history of hypertension; 3 days ago started having high fever, chills, and not feeling well with some diarrhea. Today, the patient has runny nose, no sore throat, poor appetite, per daughter she threw up multiple times at home. The patient denies any UTI or hematuria or melena. PAST MEDICAL HISTORY: Significant for hypertension for past 8 years, anemia of chronic disease, hypothyroidism, hypomagnesemia, DJD. MEDICATIONS AT HOME: Include metoprolol 25 mg once a day, vitamin C 500 mg once a day, iron tablet 325 once a day, folic acid 1 mg once a day, [place] 5/325 one tablet q.6 p.r.n., Synthroid 112 mcg once a day, lisinopril 5 mg once a day, magnesium 400 mg once a day and Neutra-Phos 250 mg twice a day. ALLERGIES: None. SOCIAL HISTORY: No smoking, no alcohol, no substance abuse. FAMILY HISTORY: Noncontributory. REVIEW OF SYSTEMS: See the history of presenting illness. PHYSICAL EXAMINATION: VITAL SIGNS: Height 1.5 meters, weight 61.2 kg, BMI 27.3. Temperature maximum is 102.4, current temperature is 97; pulse 96; respiratory rate 16; blood pressure 98/58; on 2 L, oxygen saturation via nasal cannula is 94%. HEENT: Otherwise unremarkable. No oral candidiasis, petechiae or exudate. NECK: Supple. No JVD, bruit or lymphadenopathy. LUNGS: Clear. CARDIOVASCULAR: S1 and S2 normal limits. ABDOMEN: Slightly obese, otherwise benign. EXTREMITIES: Dorsalis pedis palpable. No leg edema noted. CENTRAL NERVOUS SYSTEM: Cranial nerves intact, nonfocal. MUSCULOSKELETAL: No clubbing, cyanosis, or synovitis. LABORATORY TESTS: On admission, WBC 27.7, repeat one is 26.6; hemoglobin is 13.2, repeat one is 11.5; MCV 84; platelets of 77,000; neutrophil is 81. Sodium 136, potassium 2.9, chloride 107, bicarb 18, BUN 22, creatinine 1.1, glucose of 101, calcium 8.9, magnesium 1.7. Liver panel is unremarkable. Albumin decreased at 3.1. TSH normal at 0.48. Urinalysis, urine is cloudy, pH 5.5, specific gravity 1.030, protein 4+, ketone 1+, blood moderate, nitrite positive, wbc's more than 100. Chest x-ray done in the Emergency Room on 01/28/2017 revealed interstitial marking left side of the ____ infiltrate cannot be excluded. ASSESSMENT AND PLAN: 1. Sepsis, most likely the source is urine. 2. Severe leukocytosis, most likely secondary to sepsis. Other etiology including myelodysplastic syndrome needs to be ruled if WBCs remain high. 3. Thrombocytopenia. We will obtain Dr. Almaguer, Hematology consult and monitor CBC in the a.m. 4. Hypertension. We will continue metoprolol and lisinopril and hold it if blood pressure systolic below 110. 5. Hypothyroidism, currently euthyroid. Continue Synthroid of 112 mcg per day. 6. Iron-deficiency anemia. Currently, we will hold the iron ____ the patient's appetite improves. 7. Hypokalemia, replace the potassium and go from there. 8. Vomiting is most likely leading into the hypokalemia. Control the nausea and vomiting with Protonix and Zofran and monitor electrolytes carefully. 9. Hypomagnesemia. Treat with magnesium rider and monitor magnesium level and go from there. Dr. Alarcon will follow the patient from 01/30/2017. JOB# [id number]
[2017-01-30 07:49] LABS: HEMATOCRIT 32.3 % (35.0-45.0); HEMOGLOBIN 11.1 gm/dL (11.7-16.1); MEAN CELL VOLUME 85.9 fl (81-100); MEAN CORPUSCULAR HEMOGLOBIN 29.4 pg (27.0-31.0); MEAN CORPUSCULAR HGB CONC 34.3 pg (28.0-36.0); PLATELET COUNT 44 Th/cmm (150-400); RED BLOOD COUNT 3.76 Mil/cmm (3.80-5.20); WHITE BLOOD COUNT 11.6 Th/cmm (4.8-10.8)
[2017-01-30 07:54] LABS: ALB/GLOB RATIO 0.7 (1.0-1.8); ALKALINE PHOSPHATASE 104 U/L (34-104); AMYLASE SERUM 19 U/L (29-103); ANION GAP 11.5 (7.0-16.0); BILIRUBIN,TOTAL 0.3 mg/dL (0.3-1.0); BUN - UREA NITROGEN 25 mg/dL (7-25); BUN/CREATININE RATIO 27.8; CALCIUM SERUM 8.8 mg/dL (8.6-10.3); CARBON DIOXIDE 17.9 mEq/L (21.0-31.0); CHLORIDE 110 mEq/L (98-107); CHOLESTEROL 63 mg/dL (<200); CREATININE - SERUM 0.9 mg/dL (0.6-1.2); GLUCOSE 89 mg/dL (70-105); LIPASE 7 U/L (11-82); POTASSIUM SERUM 3.4 mEq/L (3.5-5.1); SGOT 13 U/L (13-39); SGPT/ALT 11 U/L (7-52); SODIUM SERUM 136 mEq/L (136-145); TRIGLYCERIDES 161 mg/dL (<150); URIC ACID 8.2 mg/dL (2.3-6.6)
[2017-01-30 08:47] LABS: BAND NEUTROPHILE 3 % (0-10); NEUTROPHILS 74 % (40-80); TOTAL CELLS COUNTED 100
[2017-01-30 08:48] LABS: PLATELET ESTIMATE DECREASED PLATELETS (NORMAL)
[2017-01-30] MEDS: Potassium Chloride 20 mEq ER Tab PO SCH (09:29)
[2017-01-30] MEDS: Pantoprazole 40 mg EC Tab PO SCH (09:29)
--- NOTE | 2017-01-30 11:16 | Consultation ---
Consult Note - Consult Note Service Date: 01/30/17 Consult Note: [id number]
[2017-01-30] MEDS: Levothyroxine 0.112 Mg Tab PO SCH (11:35)
--- NOTE | 2017-01-30 13:19 | Consultation ---
DATE OF CONSULTATION: 01/30/2017 REFERRING PHYSICIAN: Dr. Alarcon and ____. REASON FOR CONSULTATION: Leukocytosis, thrombocytopenia. HISTORY OF PRESENT ILLNESS: The patient is a 71-year-old female who was admitted with fever and diarrhea. Her workup showed elevated white count, low platelet count, low potassium and evidence of urinary tract infection. She was recently hospitalized and was given a course of antibiotics. The patient apparently had a history of persistent leukocytosis and was seen by senior consumer insights consultant, ____ and the records were retrieved during the previous hospitalization. Apparently, the patient was seen by mid level practitioner and there was no result of the workup available that ____ making a diagnosis. PAST MEDICAL HISTORY: Hypertension, anemia, hypothyroidism, recent hospitalization for infection. MEDICATIONS: Reviewed. She feels better today. She stated that she had fever and diarrhea prior to admission. PHYSICAL EXAMINATION: GENERAL: She is awake, alert, oriented. VITAL SIGNS: Stable, temperature from admission 102.4, blood pressure is stable, no peripheral lymphadenopathy. CHEST: Good air entry. ABDOMEN: Soft. EXTREMITIES: Weakness in the left upper and lower extremities. LABORATORY DATA: White count on admission was 26, today is 11.6 and platelet was 77, now is 44, hemoglobin 11.1. ASSESSMENT: Chronic leukocytosis, etiology unclear. The patient will be worked up with ____, B12 and folate level. If negative, ____ biopsy will be obtained. Case discussed with ____ Vijay and C. diff toxin will be obtained. Thank you for the opportunity to participate in the care of this interesting case. JOB# [id number]
[2017-01-30] MEDS: Levofloxacin 250 mg/50 mL Premix Bag IV SCH (14:42)
--- NOTE | 2017-01-30 20:39 | Admit Criteria Form ---
Admit Criteria Forms - Admit Criteria Diagnosis: SEPSIS and OTHER FEBRILE ILLNESS, W/O FOCAL INFECTION Clinical Indications for Admission to Inpatient Care ( Place 'X' for any and all applicable criteria): Admission is indicated for ANY ONE of the following (1)(2)(3)(4): [ ] I. Bacteremia [X]II. Suspected or identified specific infection requiring hospitalization (eg, meningitis, endocarditis) [ ]III. Hemodynamic instability [ ]IV. Altered mental status [X]V. Failure or unavailability of outpatient antimicrobial treatment [ ]. Hypoxemia [ ]VII. Seizures [ ]VIII. High-risk febrile neutropenia [ ]IX. Need for parenteral antibiotic in patient who is likely to abuse vascular access device (eg, injection drug user) [A](7) [ ]X. Temperature greater than 104.9 degrees F (40.5 degrees C) (oral) [ ]XI. Inpatient admission required rather than observation care because of ANY ONE of the following: [ ]1) Specific infection identified that is too severe for outpatient treatment or observation care trial [ ]2) Metabolic disorder (eg, hypoglycemia, hyperglycemia, metabolic acidosis) that is severe or persistent [ ]3) Temperature greater than 103.1 degrees F (39.5 degrees C) ( oral) that is not responsive to observation care treatment [ ]4) IV fluid to replace significant ongoing (eg, for over 24 hours) losses (> 3 L/m2 per day) [ ]5) Supplemental oxygen or respiratory treatments for over 24 hours that is performable only in acute inpatient setting [ ]6) Parenteral nutrition regimen need that must be implemented on inpatient basis [ ]7) Strict or protective (eg, laminar flow) isolation [ ]8) Other condition, treatment or monitoring requiring inpatient admission Extended stay beyond goal length of stay may be needed for(1)(3) [ ]a) Sepsis or septic shock(22) [ ]b) Positive blood cultures [ ]c) Insufficient oral intake [ ]d) High-risk febrile neutropenia(29)(30) [ ]e) Continued fever and clinical instability [ ]f) Clinically active comorbid illness (e.g,heart failure, renal failure , diabetes) The original [facility] content created by [employer] has been revised. The portions of the content which have been revised are identified through the use of italic text or in bold, and [employer] Board [employer] (ABAM)karina Gutierres has neither reviewed nor approved the modified material. All other unmodified content is copyright [facility]. Please see references footnoted in the original [facility] edition 2016 Admit Criteria Met?: Yes
--- NOTE | 2017-01-30 22:01 | General Progress Note ---
Subjective - Review of Systems Service Date: 01/30/17 Subjective: Patient seen and examined Family was at the bedside Chart reviewed Patient feels better afebrile c/o loose stool Objective - Results Result Diagrams: 01/30/17 06:50 01/30/17 06:50 Recent Labs: Laboratory Last Values WBC 11.6 Th/cmm (4.8-10.8) H D 01/30/17 06:50 RBC 3.76 Mil/cmm (3.80-5.20) L 01/30/17 06:50 Hgb 11.1 gm/dL (11.7-16.1) L 01/30/17 06:50 Hct 32.3 % (35.0-45.0) L 01/30/17 06:50 MCV 85.9 fl (81-100) 01/30/17 06:50 MCH 29.4 pg (27.0-31.0) 01/30/17 06:50 MCHC Differential 34.3 pg (28.0-36.0) 01/30/17 06:50 RDW 15.0 % (11.5-20.0) 01/30/17 06:50 Plt Count 44 Th/cmm (150-400) L D 01/30/17 06:50 MPV 11.0 fl 01/30/17 06:50 Band Neutrophils % 3 % (0-10) 01/30/17 06:50 Neutrophils (Manual) 74 % (40-80) 01/30/17 06:50 Lymphocytes 10 % (20-50) L 01/30/17 06:50 Monocytes 13 % (2-10) H 01/30/17 06:50 Platelet Estimate DECREASED PLATELETS (NORMAL) 01/30/17 06:50 Platelet Morphology GIANT PLATELETS SEEN (NORMAL) 01/29/17 07:02 RBC Morph Micro Appear NORMAL (NORMAL) 01/29/17 07:02 Sodium 136 mEq/L (136-145) 01/30/17 06:50 Potassium 3.4 mEq/L (3.5-5.1) L 01/30/17 06:50 Chloride 110 mEq/L (98-107) H 01/30/17 06:50 Carbon Dioxide 17.9 mEq/L (21.0-31.0) L 01/30/17 06:50 Anion Gap 11.5 (7.0-16.0) 01/30/17 06:50 BUN 25 mg/dL (7-25) 01/30/17 06:50 Creatinine 0.9 mg/dL (0.6-1.2) 01/30/17 06:50 Est GFR ( Amer) TNP 01/30/17 06:50 Est GFR (Non-Af Amer) TNP 01/30/17 06:50 BUN/Creatinine Ratio 27.8 01/30/17 06:50 Glucose 89 mg/dL (70-105) 01/30/17 06:50 Whole Bld Lactic Acid 1.43 mmol/L (0.60-1.99) 01/28/17 13:16 Uric Acid 8.2 mg/dL (2.3-6.6) H 01/30/17 06:50 Calcium 8.8 mg/dL (8.6-10.3) 01/30/17 06:50 Magnesium 1.7 mg/dL (1.9-2.7) L 01/29/17 07:02 Total Bilirubin 0.3 mg/dL (0.3-1.0) 01/30/17 06:50 AST 13 U/L (13-39) 01/30/17 06:50 ALT 11 U/L (7-52) 01/30/17 06:50 Alkaline Phosphatase 104 U/L (34-104) 01/30/17 06:50 Ammonia 44 umol/L (16-53) 01/30/17 06:50 Total Protein 7.4 gm/dL (6.0-8.3) 01/30/17 06:50 Albumin 3.0 gm/dL (3.7-5.3) L 01/30/17 06:50 Globulin 4.4 gm/dL 01/30/17 06:50 Albumin/Globulin Ratio 0.7 (1.0-1.8) L 01/30/17 06:50 Triglycerides 161 mg/dL (<150) H 01/30/17 06:50 Cholesterol 63 mg/dL (<200) 01/30/17 06:50 LDL Cholesterol Direct 25 mg/dL (75-193) L 01/30/17 06:50 HDL Cholesterol 9 mg/dL (23-92) L 01/30/17 06:50 Amylase 19 U/L (29-103) L 01/30/17 06:50 Lipase 7 U/L (11-82) L 01/30/17 06:50 TSH 0.48 uIU/ml (0.34-5.60) 01/29/17 07:02 Urine Source RANDOM 01/28/17 14:00 Urine Color YELLOW 01/28/17 14:00 Urine Clarity CLOUDY (CLEAR) H 01/28/17 14:00 Urine pH 5.5 01/28/17 14:00 Ur Specific [place] (1.005-1.030) 01/28/17 14:00 Urine Protein 100 mg/dL (NEGATIVE) H 01/28/17 14:00 Urine Glucose (UA) NEGATIVE mg/dL (NEGATIVE) 01/28/17 14:00 Urine Ketones 15 mg/dL (NEGATIVE) H 01/28/17 14:00 Urine Blood MODERATE (NEGATIVE) H 01/28/17 14:00 Urine Nitrate POSITIVE (NEGATIVE) H 01/28/17 14:00 Urine Bilirubin SMALL (NEGATIVE) H 01/28/17 14:00 Urine Urobilinogen 0.2 E.U./dL (0.2 - 1.0) 01/28/17 14:00 Ur Leukocyte Esterase LARGE (NEGATIVE) H 01/28/17 14:00 Urine RBC 5-10 /hpf (0-5) H 01/28/17 14:00 Urine WBC >100 /hpf (0-5) H 01/28/17 14:00 Ur Epithelial Cells FEW /lpf (FEW) 01/28/17 14:00 Urine Bacteria MANY /hpf (NONE SEEN) 01/28/17 14:00 Stool Leukocyte FEW WBC SEEN 01/30/17 18:30 - Physical Exam Vitals and I&O: Vital Signs Temp 98.0 F 01/30/17 20:00 Pulse 84 01/30/17 20:00 Resp 19 01/30/17 20:00 BP 105/68 01/30/17 20:00 Pulse Ox 97 01/30/17 20:00 Intake & Output 01/30/17 01/30/17 01/31/17 06:59 18:59 06:59 Intake Total 100 1100 Balance 100 1100 Weight (lbs) 55.338 kg Intake: Intake, IV Amount 50 Levofloxacin 250mg/50mL 50 250 mg In 50 ml @ 50 mls/ hr IV Q24HR [facility] Rx#: [id number] Oral 100 1050 Other: # Voids 3 3 # Bowel Movements 2 Stool Characteristics Liquid Liquid Green Green Active Medications: Current Medications Acetaminophen (Tylenol) 650 mg PO Q4H PRN PRN Reason: fever >100 Stop: 03/29/17 20:41 Last Admin: 01/29/17 21:37 Dose: 650 mg Acetaminophen/Hydrocodone Bitart ([place] 5mg/325mg) 1 tab PO Q6H PRN PRN Reason: Moderate Pain Stop: 03/29/17 15:51 Levofloxacin (Levaquin Pb) 250 mg in 50 mls @ 50 mls/hr IV Q24HR [facility] Stop: 03/30/17 14:59 Last Infusion: 01/30/17 15:45 Dose: Infused Levothyroxine Sodium (Synthroid) 0.112 mg PO QDAC [facility] Stop: 03/30/17 07:29 Last Admin: 01/30/17 11:35 Dose: 0.112 mg Lisinopril (Zestril) 5 mg PO DAILY [facility] Stop: 03/30/17 08:59 Last Admin: 01/30/17 09:28 Dose: 5 mg Magnesium Oxide (Mag-Oxide) 400 mg PO BID [facility] Stop: 03/29/17 16:59 Last Admin: 01/30/17 17:03 Dose: 400 mg Ondansetron HCl (Zofran) 4 mg IV Q4H PRN PRN Reason: Nausea Stop: 03/29/17 15:59 Pantoprazole Sodium (Protonix) 40 mg PO DAILY [facility] Stop: 03/30/17 08:59 Last Admin: 01/30/17 09:29 Dose: 40 mg Potassium Chloride (Klor-Con) 20 meq PO DAILY [facility] Stop: 03/31/17 08:59 Last Admin: 01/30/17 09:29 Dose: 20 meq Cardiovascular: Normal S1, Normal S2 Lungs: Clear to auscultation Abdomen: Soft, no Tender Assessment/Plan - Problem List Patient Problems: All Active Problems N/V/D WITH WEAKNESS AND FEVER (Acute) HYPOTENSIVE EPISODE AT HOME (Acute) - Assessment Assessment: Sepsis UTI 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 etiology Weakness - Plan Plan: Patient improving Continue antibioitcs Stool for C diff pending Monitor lab and vitals Family was updated on pt's condition and plan of care Plan of care discussed with nursing staff Nutritional Asmnt/Malnutr-PDOC - Dietary Evaluation Malnutrition Findings (Please click <Entered> for more info): Nutritional Asmnt/Malnutrition Start: 01/30/17 14: 22 Text: Status: Complete Freq: Document 01/30/17 14:22 GSUN (Rec: 01/30/17 14:38 GSUN [email or web address]) Nutritional Asmnt/Malnutrition Patient General Information Nutritional Screening High Risk Screening Diagnosis Sepsis Pertinent Medical Hx/Surgical Hx HTN, anemia of chronic disease , hypothyroidism, hypomagnesemia, DJD Subjective Information 71 year old female from home. Pt was pleasant and alert during visit, family at bedside. Observed lunch tray half finished, pt denied difficulties chewing/ swallowing, fair appetite, food here is acceptable. Pt deneid GI problems at this time. Pt stated usual diet no salt due to HTN and would like to receive Mrs. Lam in place . 118lb 4mos ago at doctor's office, denied recent weight changes, CBW 122lb via bedscale. Avg PO intake 75% past 2 days. Pt appeared age appropriate. Current Diet Order/ Nutrition Support [id number], mech soft chopped Pertinent Medications Synthroid, Mag-Oxide, Zofran, Protonix Pertinent Labs 01/30: glucose 89. Nutritional Hx/Data Height 1.5 m Height (Calculated Centimeters) 149.9 Current Weight (lbs) 55.338 kg Weight (Calculated Kilograms) 55.3 Weight (Calculated Grams) 87710.3 Usual body Weight (lbs) 118 [place] Body Weight 97.5lb Recent Weight Change No Weight Status Approriate GI Symptoms Skin Integrity/Comment: Kris 15. Skin intact. Current %PO Fair (50-74%) Estimated Nutritional Goals BEE in Kcals: Using Current wt Calories/Kcals/Kg CBW 122lb/55.3kg Kcals Calculated 1659-1936kcal (30-35kcal/kg) Protein: Using Current wt Protein Calculated 77-88g (1.4-1.6g/kg) Fluid: ml 1659-1936ml (1ml/kcal) Nutritional Problem 1. Problem Problem Increased kcal and prot needs related to Etiology hypermetabolic state aeb Signs/Symptoms: sepsis Intervention/Recommendation Comments 1. Recommend liberalizing diet to regular chopped. No hx of DM noted in H&P. Glucose 114H on adm, WNL since then. 2. Recommend CHERELLE diet, hx HTN. Pt follows a low sodium/CHERELLE diet at home, requested for Mrs. Lam. Expected Outcomes/Goals Expected Outcomes/Goals 1. PO intake to meet 100% of estimated nutritional needs.
--- NOTE | 2017-01-31 03:29 | Consultation ---
DATE OF CONSULTATION: 01/30/2017 REFERRING PHYSICIANS: Dr. Chau Linares and Dr. Edward Alarcon. REASON FOR CONSULTATION: UTI and sepsis. HISTORY OF PRESENT ILLNESS: The patient is a 71-year-old female with past medical history of persistent leukocytosis, possible C. diff colitis, CVA on the left side, developed fever, nausea, vomiting and diarrhea. On initial evaluation, the patient's temperature was 102.4 degrees Fahrenheit and WBC count was 27,700. The patient was started on urine culture. Urinalysis showed pyuria and bacteriuria. The patient was started on Rocephin and Levaquin. The patient did well, but he still continues to have diarrhea. ID consult was called for further antibiotic management. PAST MEDICAL HISTORY: Includes: 1. Hypertension. 2. Anemia of chronic disease. 3. Hypothyroidism. 4. Hypomagnesemia. 5. DJD, likely persistent leukocytosis and thrombocytopenia. 6. History of UTI in the past. 7. History of possibly Clostridium colitis. MEDICATIONS: As per medication reconciliation sheet. Antibiotic granados, the patient is on Rocephin and Levaquin. ALLERGIES: NKDA. SOCIAL HISTORY: The patient has no history of smoking, alcohol or drug use. FAMILY HISTORY: Diabetes mellitus. REVIEW OF SYSTEMS: GENERAL: The patient had fever and chills on presentation, which has improved now. HEENT: No diplopia, no photophobia and no sore throat. RESPIRATORY: The patient denies any cough or shortness of breath. CVS: The patient denies any chest pain and no palpitation. GASTROINTESTINAL: The patient denies any nausea or vomiting. The patient presented with some nausea, vomiting and diarrhea. However, the patient's nausea is better. She continues to have watery diarrhea. The patient denies any blood per rectum. MUSCULOSKELETAL: No muscle pain and no joint pain. NEUROLOGICAL: No headache and no dizziness. No focal deficit. PHYSICAL EXAMINATION: CURRENT VITAL SIGNS: Shows temperature is 98.6 degrees Fahrenheit, pulse 78, respirations 20 and blood pressure 115/74. GENERAL: The patient is comfortable. Not in acute distress. HEENT: Head is normocephalic and atraumatic. Oral cavity moist, pink tongue. Eyes: No pallor, no icterus. PERRLA, EOMI. NECK: Supple, no JVD, no carotid bruit. Trachea in midline. CHEST: Bilateral breath sounds. No crackles or wheezing. CARDIOVASCULAR: S1, S2 within normal limits. Regular rhythm. No murmur, no gallop. ABDOMEN: Soft, nontender and nondistended. Bowel sounds present. EXTREMITIES: No cyanosis, no clubbing and no edema. NEUROLOGIC: Alert, awake and oriented x 3. LABORATORY DATA: Current lab shows WBC count is 11,600, hemoglobin 11.1, hematocrit 32.3, platelets are 44,000, neutrophils 74% and bands are 3%. Sodium is 136, potassium 3.4, chloride 110, bicarb is 17.9, BUN is 25, creatinine 0.9 and glucose is 89. Urinalysis shows cloudy urine with moderate blood, positive nitrite, large leukoesterase, WBC more than 100, many bacteria. Urine culture grew Klebsiella pneumoniae. CHEST X-RAY: Shows accentuation of interstitial marking within the left lung base. Early infiltrate could not be excluded. IMPRESSION: 1. Sepsis. 2. Persistent leukocytosis for more than 1 year. 3. Urinary tract infection, pyelonephritis. Urine culture grew Klebsiella pneumoniae. 4. Diarrhea rule out Clostridium difficile colitis with recurrence. 5. Pneumonia, suspected. 6. History of hypertension. 7. Anemia of chronic disease. 8. Hypothyroidism. 9. Degenerative joint disease. RECOMMENDATIONS: We will discontinue Rocephin. Continue Levaquin. Check stool for C. diff toxin. Stool for WBC. Depending on that, we will define further antibiotic therapy. Thank you, Dr. Chau Linares and Dr. Edward Alarcon for involving me in taking care of this patient. JOB# [id number] [facility]
[2017-01-31] MEDS: Levothyroxine 0.112 Mg Tab PO SCH (06:45)
[2017-01-31] MEDS: Pantoprazole 40 mg EC Tab PO SCH (09:25)
[2017-01-31] MEDS: Potassium Chloride 20 mEq ER Tab PO SCH (09:25)
[2017-01-31 11:12] LABS: FOLIC ACID >20.0 ng/mL (>3.0)
[2017-01-31 11:20] LABS: HEMATOCRIT 34.1 % (35.0-45.0); HEMOGLOBIN 11.6 gm/dL (11.7-16.1); MEAN CELL VOLUME 85.2 fl (81-100); MEAN CORPUSCULAR HEMOGLOBIN 29.1 pg (27.0-31.0); MEAN CORPUSCULAR HGB CONC 34.2 pg (28.0-36.0); MEAN PLATELET VOLUME 10.3 fl; RED CELL DISTRIBUTION WIDTH 14.5 % (11.5-20.0); WHITE BLOOD COUNT 10.1 Th/cmm (4.8-10.8)
[2017-01-31 11:22] LABS: PLATELET COUNT 63 Th/cmm (150-400)
--- NOTE | 2017-01-31 12:35 | Infectious Disease Prog Note ---
Infectious Disease Subjective - Review of Systems Service Date: 01/31/17 Subjective: No change, no fever. Diarrhea better. Infectious Disease Objective - Results Result Diagrams: 01/31/17 10:55 01/30/17 06:50 Recent Labs: Laboratory Last Values WBC 10.1 Th/cmm (4.8-10.8) 01/31/17 10:55 RBC 4.00 Mil/cmm (3.80-5.20) 01/31/17 10:55 Hgb 11.6 gm/dL (11.7-16.1) L 01/31/17 10:55 Hct 34.1 % (35.0-45.0) L 01/31/17 10:55 MCV 85.2 fl (81-100) 01/31/17 10:55 MCH 29.1 pg (27.0-31.0) 01/31/17 10:55 MCHC Differential 34.2 pg (28.0-36.0) 01/31/17 10:55 RDW 14.5 % (11.5-20.0) 01/31/17 10:55 Plt Count 63 Th/cmm (150-400) L D 01/31/17 10:55 MPV 10.3 fl 01/31/17 10:55 Band Neutrophils % 3 % (0-10) 01/30/17 06:50 Neutrophils (Manual) 74 % (40-80) 01/30/17 06:50 Lymphocytes 10 % (20-50) L 01/30/17 06:50 Monocytes 13 % (2-10) H 01/30/17 06:50 Platelet Estimate DECREASED PLATELETS (NORMAL) 01/30/17 06:50 Platelet Morphology GIANT PLATELETS SEEN (NORMAL) 01/29/17 07:02 RBC Morph Micro Appear NORMAL (NORMAL) 01/29/17 07:02 Sodium 136 mEq/L (136-145) 01/30/17 06:50 Potassium 3.4 mEq/L (3.5-5.1) L 01/30/17 06:50 Chloride 110 mEq/L (98-107) H 01/30/17 06:50 Carbon Dioxide 17.9 mEq/L (21.0-31.0) L 01/30/17 06:50 Anion Gap 11.5 (7.0-16.0) 01/30/17 06:50 BUN 25 mg/dL (7-25) 01/30/17 06:50 Creatinine 0.9 mg/dL (0.6-1.2) 01/30/17 06:50 Est GFR ( Amer) TNP 01/30/17 06:50 Est GFR (Non-Af Amer) TNP 01/30/17 06:50 BUN/Creatinine Ratio 27.8 01/30/17 06:50 Glucose 89 mg/dL (70-105) 01/30/17 06:50 Whole Bld Lactic Acid 1.43 mmol/L (0.60-1.99) 01/28/17 13:16 Uric Acid 8.2 mg/dL (2.3-6.6) H 01/30/17 06:50 Calcium 8.8 mg/dL (8.6-10.3) 01/30/17 06:50 Magnesium 1.7 mg/dL (1.9-2.7) L 01/29/17 07:02 Total Bilirubin 0.3 mg/dL (0.3-1.0) 01/30/17 06:50 AST 13 U/L (13-39) 01/30/17 06:50 ALT 11 U/L (7-52) 01/30/17 06:50 Alkaline Phosphatase 104 U/L (34-104) 01/30/17 06:50 Ammonia 44 umol/L (16-53) 01/30/17 06:50 Total Protein 7.4 gm/dL (6.0-8.3) 01/30/17 06:50 Albumin 3.0 gm/dL (3.7-5.3) L 01/30/17 06:50 Globulin 4.4 gm/dL 01/30/17 06:50 Albumin/Globulin Ratio 0.7 (1.0-1.8) L 01/30/17 06:50 Triglycerides 161 mg/dL (<150) H 01/30/17 06:50 Cholesterol 63 mg/dL (<200) 01/30/17 06:50 LDL Cholesterol Direct 25 mg/dL (75-193) L 01/30/17 06:50 HDL Cholesterol 9 mg/dL (23-92) L 01/30/17 06:50 Amylase 19 U/L (29-103) L 01/30/17 06:50 Lipase 7 U/L (11-82) L 01/30/17 06:50 Vitamin B12 703 pg/mL (211-946) 01/30/17 06:50 Folic Acid >20.0 ng/mL (>3.0) 01/30/17 06:50 TSH 0.48 uIU/ml (0.34-5.60) 01/29/17 07:02 Urine Source RANDOM 01/28/17 14:00 Urine Color YELLOW 01/28/17 14:00 Urine Clarity CLOUDY (CLEAR) H 01/28/17 14:00 Urine pH 5.5 01/28/17 14:00 Ur Specific [place] (1.005-1.030) 01/28/17 14:00 Urine Protein 100 mg/dL (NEGATIVE) H 01/28/17 14:00 Urine Glucose (UA) NEGATIVE mg/dL (NEGATIVE) 01/28/17 14:00 Urine Ketones 15 mg/dL (NEGATIVE) H 01/28/17 14:00 Urine Blood MODERATE (NEGATIVE) H 01/28/17 14:00 Urine Nitrate POSITIVE (NEGATIVE) H 01/28/17 14:00 Urine Bilirubin SMALL (NEGATIVE) H 01/28/17 14:00 Urine Urobilinogen 0.2 E.U./dL (0.2 - 1.0) 01/28/17 14:00 Ur Leukocyte Esterase LARGE (NEGATIVE) H 01/28/17 14:00 Urine RBC 5-10 /hpf (0-5) H 01/28/17 14:00 Urine WBC >100 /hpf (0-5) H 01/28/17 14:00 Ur Epithelial Cells FEW /lpf (FEW) 01/28/17 14:00 Urine Bacteria MANY /hpf (NONE SEEN) 01/28/17 14:00 Stool Leukocyte FEW WBC SEEN 01/30/17 18:30 - Physical Exam Vitals and I&O: Vital Signs Temp 97.3 F 01/31/17 08:00 Pulse 76 01/31/17 09:20 Resp 18 01/31/17 08:00 BP 117/75 01/31/17 09:20 Pulse Ox 94 01/31/17 08:00 Intake & Output 01/30/17 01/31/17 01/31/17 18:59 06:59 18:59 Intake Total 1100 200 Output Total 3 Balance 1100 197 Weight (lbs) 55.338 kg Intake: Intake, IV Amount 50 Levofloxacin 250mg/50mL 50 250 mg In 50 ml @ 50 mls/ hr IV Q24HR [facility] Rx#: [id number] Oral 1050 200 Output: Stool 3 Other: # Voids 3 3 # Bowel Movements 2 Stool Characteristics Liquid Soft Soft Green Active Medications: Current Medications Acetaminophen (Tylenol) 650 mg PO Q4H PRN PRN Reason: fever >100 Stop: 03/29/17 20:41 Last Admin: 01/29/17 21:37 Dose: 650 mg Acetaminophen/Hydrocodone Bitart ([place] 5mg/325mg) 1 tab PO Q6H PRN PRN Reason: Moderate Pain Stop: 03/29/17 15:51 Levofloxacin (Levaquin Pb) 250 mg in 50 mls @ 50 mls/hr IV Q24HR [facility] Stop: 03/30/17 14:59 Last Infusion: 01/30/17 15:45 Dose: Infused Levothyroxine Sodium (Synthroid) 0.112 mg PO QDAC [facility] Stop: 03/30/17 07:29 Last Admin: 01/31/17 06:45 Dose: 0.112 mg Lisinopril (Zestril) 5 mg PO DAILY [facility] Stop: 03/30/17 08:59 Last Admin: 01/31/17 09:20 Dose: 5 mg Magnesium Oxide (Mag-Oxide) 400 mg PO BID [facility] Stop: 03/29/17 16:59 Last Admin: 01/31/17 09:25 Dose: 400 mg Ondansetron HCl (Zofran) 4 mg IV Q4H PRN PRN Reason: Nausea Stop: 03/29/17 15:59 Pantoprazole Sodium (Protonix) 40 mg PO DAILY [facility] Stop: 03/30/17 08:59 Last Admin: 01/31/17 09:25 Dose: 40 mg Potassium Chloride (Klor-Con) 20 meq PO DAILY [facility] Stop: 03/31/17 08:59 Last Admin: 01/31/17 09:25 Dose: 20 meq General: no acute distress, well developed, well nourished HEENT: atraumatic, normocephalic, PERRLA Neck: supple Cardiovascular: S1S2, regular Lungs: clear to auscultation bilaterally, clear to percussion Abdomen: soft, no tender, no distended Extremities: no cyanosis, no clubbing, no edema Neurological: awake, alert, oriented Skin: intact Infectious Disease Assmt/Plan - Problem List Patient Problems: All Active Problems N/V/D WITH WEAKNESS AND FEVER (Acute) HYPOTENSIVE EPISODE AT HOME (Acute) - Assessment Assessment: IMPRESSION: 1. UTI. 2. Sepsis better. 3. Colitis. r/o cdac. Stool positive for WBCs. ( patient had given h/o c diff colitis in past). 4. Leukocytosis, improved. 5. Thrombocytopenia. 6. HTN 7. DJD. - Plan Plan: Check stool for OB. Continue levaquin. Start flagyl po and questran. DW her daughters in detail. Nutritional Asmnt/Malnutr-PDOC - Dietary Evaluation Malnutrition Findings (Please click <Entered> for more info): Nutritional Asmnt/Malnutrition Start: 01/30/17 14: 22 Text: Status: Complete Freq: Document 01/30/17 14:22 GSUN (Rec: 01/30/17 14:38 [id number]) Nutritional Asmnt/Malnutrition Patient General Information Nutritional Screening High Risk Screening Diagnosis Sepsis Pertinent Medical Hx/Surgical Hx HTN, anemia of chronic disease , hypothyroidism, hypomagnesemia, DJD Subjective Information 71 year old female from home. Pt was pleasant and alert during visit, family at bedside. Observed lunch tray half finished, pt denied difficulties chewing/ swallowing, fair appetite, food here is acceptable. Pt deneid GI problems at this time. Pt stated usual diet no salt due to HTN and would like to receive Mrs. Lam in place . 118lb 4mos ago at doctor's office, denied recent weight changes, CBW 122lb via bedscale. Avg PO intake 75% past 2 days. Pt appeared age appropriate. Current Diet Order/ Nutrition Support [id number], mech soft chopped Pertinent Medications Synthroid, Mag-Oxide, Zofran, Protonix Pertinent Labs 01/30: glucose 89. Nutritional Hx/Data Height 1.5 m Height (Calculated Centimeters) 149.9 Current Weight (lbs) 55.338 kg Weight (Calculated Kilograms) 55.3 Weight (Calculated Grams) 89002.3 Usual body Weight (lbs) 118 [place] Body Weight 97.5lb Recent Weight Change No Weight Status Approriate GI Symptoms Skin Integrity/Comment: Kris 15. Skin intact. Current %PO Fair (50-74%) Estimated Nutritional Goals BEE in Kcals: Using Current wt Calories/Kcals/Kg CBW 122lb/55.3kg Kcals Calculated 1659-1936kcal (30-35kcal/kg) Protein: Using Current wt Protein Calculated 77-88g (1.4-1.6g/kg) Fluid: ml 1659-1936ml (1ml/kcal) Nutritional Problem 1. Problem Problem Increased kcal and prot needs related to Etiology hypermetabolic state aeb Signs/Symptoms: sepsis Intervention/Recommendation Comments 1. Recommend liberalizing diet to regular chopped. No hx of DM noted in H&P. Glucose 114H on adm, WNL since then. 2. Recommend CHERELLE diet, hx HTN. Pt follows a low sodium/CHERELLE diet at home, requested for Mrs. Lam. Expected Outcomes/Goals Expected Outcomes/Goals 1. PO intake to meet 100% of estimated nutritional needs.
[2017-01-31 12:51] LABS: BAND NEUTROPHILE 1 % (0-10); NEUTROPHILS 69 % (40-80); PLATELET ESTIMATE DECREASED PLATELETS (NORMAL); PLATELET MORPHOLOGY GIANT PLATELETS SEEN (NORMAL); TOTAL CELLS COUNTED 100
[2017-01-31] MEDS: Levofloxacin 250 mg/50 mL Premix Bag IV SCH (15:13)
[2017-01-31] MEDS ORDERED: cefTRIAXone 1 GM in Sodium Chloride 0.9% 50 ML IV SCH (18:01)
--- NOTE | 2017-01-31 18:26 | General Progress Note ---
Subjective - Review of Systems Service Date: 01/31/17 Events since last encounter: leukocytosis, low platelets Subjective: seen by dr marquez Objective - Results Result Diagrams: 01/31/17 10:55 01/30/17 06:50 Recent Labs: Laboratory Last Values WBC 10.1 Th/cmm (4.8-10.8) 01/31/17 10:55 RBC 4.00 Mil/cmm (3.80-5.20) 01/31/17 10:55 Hgb 11.6 gm/dL (11.7-16.1) L 01/31/17 10:55 Hct 34.1 % (35.0-45.0) L 01/31/17 10:55 MCV 85.2 fl (81-100) 01/31/17 10:55 MCH 29.1 pg (27.0-31.0) 01/31/17 10:55 MCHC Differential 34.2 pg (28.0-36.0) 01/31/17 10:55 RDW 14.5 % (11.5-20.0) 01/31/17 10:55 Plt Count 63 Th/cmm (150-400) L D 01/31/17 10:55 MPV 10.3 fl 01/31/17 10:55 Band Neutrophils % 1 % (0-10) 01/31/17 10:55 Neutrophils (Manual) 69 % (40-80) 01/31/17 10:55 Lymphocytes 12 % (20-50) L 01/31/17 10:55 Monocytes 18 % (2-10) H 01/31/17 10:55 Platelet Estimate DECREASED PLATELETS (NORMAL) 01/31/17 10:55 Platelet Morphology GIANT PLATELETS SEEN (NORMAL) 01/31/17 10:55 RBC Morph Micro Appear NORMAL (NORMAL) 01/31/17 10:55 Sodium 136 mEq/L (136-145) 01/30/17 06:50 Potassium 3.4 mEq/L (3.5-5.1) L 01/30/17 06:50 Chloride 110 mEq/L (98-107) H 01/30/17 06:50 Carbon Dioxide 17.9 mEq/L (21.0-31.0) L 01/30/17 06:50 Anion Gap 11.5 (7.0-16.0) 01/30/17 06:50 BUN 25 mg/dL (7-25) 01/30/17 06:50 Creatinine 0.9 mg/dL (0.6-1.2) 01/30/17 06:50 Est GFR ( Amer) TNP 01/30/17 06:50 Est GFR (Non-Af Amer) TNP 01/30/17 06:50 BUN/Creatinine Ratio 27.8 01/30/17 06:50 Glucose 89 mg/dL (70-105) 01/30/17 06:50 Whole Bld Lactic Acid 1.43 mmol/L (0.60-1.99) 01/28/17 13:16 Uric Acid 8.2 mg/dL (2.3-6.6) H 01/30/17 06:50 Calcium 8.8 mg/dL (8.6-10.3) 01/30/17 06:50 Magnesium 1.7 mg/dL (1.9-2.7) L 01/29/17 07:02 Total Bilirubin 0.3 mg/dL (0.3-1.0) 01/30/17 06:50 AST 13 U/L (13-39) 01/30/17 06:50 ALT 11 U/L (7-52) 01/30/17 06:50 Alkaline Phosphatase 104 U/L (34-104) 01/30/17 06:50 Ammonia 44 umol/L (16-53) 01/30/17 06:50 Total Protein 7.4 gm/dL (6.0-8.3) 01/30/17 06:50 Albumin 3.0 gm/dL (3.7-5.3) L 01/30/17 06:50 Globulin 4.4 gm/dL 01/30/17 06:50 Albumin/Globulin Ratio 0.7 (1.0-1.8) L 01/30/17 06:50 Triglycerides 161 mg/dL (<150) H 01/30/17 06:50 Cholesterol 63 mg/dL (<200) 01/30/17 06:50 LDL Cholesterol Direct 25 mg/dL (75-193) L 01/30/17 06:50 HDL Cholesterol 9 mg/dL (23-92) L 01/30/17 06:50 Amylase 19 U/L (29-103) L 01/30/17 06:50 Lipase 7 U/L (11-82) L 01/30/17 06:50 Vitamin B12 703 pg/mL (211-946) 01/30/17 06:50 Folic Acid >20.0 ng/mL (>3.0) 01/30/17 06:50 TSH 0.48 uIU/ml (0.34-5.60) 01/29/17 07:02 Urine Source RANDOM 01/28/17 14:00 Urine Color YELLOW 01/28/17 14:00 Urine Clarity CLOUDY (CLEAR) H 01/28/17 14:00 Urine pH 5.5 01/28/17 14:00 Ur Specific [place] (1.005-1.030) 01/28/17 14:00 Urine Protein 100 mg/dL (NEGATIVE) H 01/28/17 14:00 Urine Glucose (UA) NEGATIVE mg/dL (NEGATIVE) 01/28/17 14:00 Urine Ketones 15 mg/dL (NEGATIVE) H 01/28/17 14:00 Urine Blood MODERATE (NEGATIVE) H 01/28/17 14:00 Urine Nitrate POSITIVE (NEGATIVE) H 01/28/17 14:00 Urine Bilirubin SMALL (NEGATIVE) H 01/28/17 14:00 Urine Urobilinogen 0.2 E.U./dL (0.2 - 1.0) 01/28/17 14:00 Ur Leukocyte Esterase LARGE (NEGATIVE) H 01/28/17 14:00 Urine RBC 5-10 /hpf (0-5) H 01/28/17 14:00 Urine WBC >100 /hpf (0-5) H 01/28/17 14:00 Ur Epithelial Cells FEW /lpf (FEW) 01/28/17 14:00 Urine Bacteria MANY /hpf (NONE SEEN) 01/28/17 14:00 Stool Leukocyte FEW WBC SEEN 01/30/17 18:30 Hepatitis C Antibody <0.1 s/co ratio (0.0-0.9) 01/30/17 06:50 - Physical Exam Vitals and I&O: Vital Signs Temp 97.6 F 01/31/17 15:55 Pulse 76 01/31/17 15:55 Resp 18 01/31/17 16:00 BP 112/67 01/31/17 15:55 Pulse Ox 96 01/31/17 15:55 Intake & Output 01/30/17 01/31/17 01/31/17 18:59 06:59 18:59 Intake Total 1100 200 50 Output Total 3 Balance 1100 197 50 Weight (lbs) 55.338 kg Intake: Intake, IV Amount 50 50 Levofloxacin 250mg/50mL 50 50 250 mg In 50 ml @ 50 mls/ hr IV Q24HR [facility] Rx#: [id number] Oral 1050 200 Output: Stool 3 Other: # Voids 3 3 # Bowel Movements 2 Stool Characteristics Liquid Soft Soft Green Active Medications: Current Medications Acetaminophen (Tylenol) 650 mg PO Q4H PRN PRN Reason: fever >100 Stop: 03/29/17 20:41 Last Admin: 01/29/17 21:37 Dose: 650 mg Acetaminophen/Hydrocodone Bitart ([place] 5mg/325mg) 1 tab PO Q6H PRN PRN Reason: Moderate Pain Stop: 03/29/17 15:51 Cholestyramine Resin (Questran) 4 gm PO BID [facility] Stop: 04/01/17 16:59 Last Admin: 01/31/17 17:11 Dose: 4 gm Levofloxacin (Levaquin Pb) 250 mg in 50 mls @ 50 mls/hr IV Q24HR [facility] Stop: 03/30/17 14:59 Last Infusion: 01/31/17 16:15 Dose: Infused Potassium Chloride/Dextrose/Sod Cl (D5-0.9ns W/Kcl 20meq) 1,000 mls @ 100 mls/ hr IV .Q10H [facility] Stop: 04/01/17 18:00 Ceftriaxone Sodium 1 gm/ (Sodium Chloride) 50 mls @ 100 mls/hr IV Q24HR [facility] Stop: 04/01/17 18:00 Levothyroxine Sodium (Synthroid) 0.112 mg PO QDAC [facility] Stop: 03/30/17 07:29 Last Admin: 01/31/17 06:45 Dose: 0.112 mg Lisinopril (Zestril) 5 mg PO DAILY [facility] Stop: 03/30/17 08:59 Last Admin: 01/31/17 09:20 Dose: 5 mg Magnesium Oxide (Mag-Oxide) 400 mg PO BID [facility] Stop: 03/29/17 16:59 Last Admin: 01/31/17 17:11 Dose: 400 mg Metronidazole (Flagyl) 500 mg PO TID [facility] Stop: 02/07/17 13:59 Last Admin: 01/31/17 13:29 Dose: 500 mg Ondansetron HCl (Zofran) 4 mg IV Q4H PRN PRN Reason: Nausea Stop: 03/29/17 15:59 Pantoprazole Sodium (Protonix) 40 mg PO DAILY [facility]ITTANY Stop: 03/30/17 08:59 Last Admin: 01/31/17 09:25 Dose: 40 mg Potassium Chloride (Klor-Con) 20 meq PO DAILY BR[facility] Stop: 03/31/17 08:59 Last Admin: 01/31/17 09:25 Dose: 20 meq Assessment/Plan - Problem List Patient Problems: All Active Problems N/V/D WITH WEAKNESS AND FEVER (Acute) HYPOTENSIVE EPISODE AT HOME (Acute) - Assessment Assessment: r/o DIC SEPSIS - Plan Plan: DIC PANEL Nutritional Asmnt/Malnutr-PDOC - Dietary Evaluation Malnutrition Findings (Please click <Entered> for more info): Nutritional Asmnt/Malnutrition Start: 01/30/17 14: 22 Text: Status: Complete Freq: Document 01/30/17 14:22 GSUN (Rec: 01/30/17 14:38 [email or web address]) Nutritional Asmnt/Malnutrition Patient General Information Nutritional Screening High Risk Screening Diagnosis Sepsis Pertinent Medical Hx/Surgical Hx HTN, anemia of chronic disease , hypothyroidism, hypomagnesemia, DJD Subjective Information 71 year old female from home. Pt was pleasant and alert during visit, family at bedside. Observed lunch tray half finished, pt denied difficulties chewing/ swallowing, fair appetite, food here is acceptable. Pt deneid GI problems at this time. Pt stated usual diet no salt due to HTN and would like to receive Mrs. Lam in place . 118lb 4mos ago at doctor's office, denied recent weight changes, CBW 122lb via bedscale. Avg PO intake 75% past 2 days. Pt appeared age appropriate. Current Diet Order/ Nutrition Support [id number], mech soft chopped Pertinent Medications Synthroid, Mag-Oxide, Zofran, Protonix Pertinent Labs 01/30: glucose 89. Nutritional Hx/Data Height 1.5 m Height (Calculated Centimeters) 149.9 Current Weight (lbs) 55.338 kg Weight (Calculated Kilograms) 55.3 Weight (Calculated Grams) 25464.3 Usual body Weight (lbs) 118 [place] Body Weight 97.5lb Recent Weight Change No Weight Status Approriate GI Symptoms Skin Integrity/Comment: Kris 15. Skin intact. Current %PO Fair (50-74%) Estimated Nutritional Goals BEE in Kcals: Using Current wt Calories/Kcals/Kg CBW 122lb/55.3kg Kcals Calculated 1659-1936kcal (30-35kcal/kg) Protein: Using Current wt Protein Calculated 77-88g (1.4-1.6g/kg) Fluid: ml 1659-1936ml (1ml/kcal) Nutritional Problem 1. Problem Problem Increased kcal and prot needs related to Etiology hypermetabolic state aeb Signs/Symptoms: sepsis Intervention/Recommendation Comments 1. Recommend liberalizing diet to regular chopped. No hx of DM noted in H&P. Glucose 114H on adm, WNL since then. 2. Recommend CHERELLE diet, hx HTN. Pt follows a low sodium/CHERELLE diet at home, requested for Mrs. Lam. Expected Outcomes/Goals Expected Outcomes/Goals 1. PO intake to meet 100% of estimated nutritional needs.
--- NOTE | 2017-01-31 20:10 | General Progress Note ---
Subjective - Review of Systems Service Date: 01/31/17 Subjective: Patient seen and examined Family was at the bedside Patient denied any complaints afebrile Objective - Results Result Diagrams: 01/31/17 10:55 01/30/17 06:50 Recent Labs: Laboratory Last Values WBC 10.1 Th/cmm (4.8-10.8) 01/31/17 10:55 RBC 4.00 Mil/cmm (3.80-5.20) 01/31/17 10:55 Hgb 11.6 gm/dL (11.7-16.1) L 01/31/17 10:55 Hct 34.1 % (35.0-45.0) L 01/31/17 10:55 MCV 85.2 fl (81-100) 01/31/17 10:55 MCH 29.1 pg (27.0-31.0) 01/31/17 10:55 MCHC Differential 34.2 pg (28.0-36.0) 01/31/17 10:55 RDW 14.5 % (11.5-20.0) 01/31/17 10:55 Plt Count 63 Th/cmm (150-400) L D 01/31/17 10:55 MPV 10.3 fl 01/31/17 10:55 Band Neutrophils % 1 % (0-10) 01/31/17 10:55 Neutrophils (Manual) 69 % (40-80) 01/31/17 10:55 Lymphocytes 12 % (20-50) L 01/31/17 10:55 Monocytes 18 % (2-10) H 01/31/17 10:55 Platelet Estimate DECREASED PLATELETS (NORMAL) 01/31/17 10:55 Platelet Morphology GIANT PLATELETS SEEN (NORMAL) 01/31/17 10:55 RBC Morph Micro Appear NORMAL (NORMAL) 01/31/17 10:55 Sodium 136 mEq/L (136-145) 01/30/17 06:50 Potassium 3.4 mEq/L (3.5-5.1) L 01/30/17 06:50 Chloride 110 mEq/L (98-107) H 01/30/17 06:50 Carbon Dioxide 17.9 mEq/L (21.0-31.0) L 01/30/17 06:50 Anion Gap 11.5 (7.0-16.0) 01/30/17 06:50 BUN 25 mg/dL (7-25) 01/30/17 06:50 Creatinine 0.9 mg/dL (0.6-1.2) 01/30/17 06:50 Est GFR ( Amer) TNP 01/30/17 06:50 Est GFR (Non-Af Amer) TNP 01/30/17 06:50 BUN/Creatinine Ratio 27.8 01/30/17 06:50 Glucose 89 mg/dL (70-105) 01/30/17 06:50 Whole Bld Lactic Acid 1.43 mmol/L (0.60-1.99) 01/28/17 13:16 Uric Acid 8.2 mg/dL (2.3-6.6) H 01/30/17 06:50 Calcium 8.8 mg/dL (8.6-10.3) 01/30/17 06:50 Magnesium 1.7 mg/dL (1.9-2.7) L 01/29/17 07:02 Total Bilirubin 0.3 mg/dL (0.3-1.0) 01/30/17 06:50 AST 13 U/L (13-39) 01/30/17 06:50 ALT 11 U/L (7-52) 01/30/17 06:50 Alkaline Phosphatase 104 U/L (34-104) 01/30/17 06:50 Ammonia 44 umol/L (16-53) 01/30/17 06:50 Total Protein 7.4 gm/dL (6.0-8.3) 01/30/17 06:50 Albumin 3.0 gm/dL (3.7-5.3) L 01/30/17 06:50 Globulin 4.4 gm/dL 01/30/17 06:50 Albumin/Globulin Ratio 0.7 (1.0-1.8) L 01/30/17 06:50 Triglycerides 161 mg/dL (<150) H 01/30/17 06:50 Cholesterol 63 mg/dL (<200) 01/30/17 06:50 LDL Cholesterol Direct 25 mg/dL (75-193) L 01/30/17 06:50 HDL Cholesterol 9 mg/dL (23-92) L 01/30/17 06:50 Amylase 19 U/L (29-103) L 01/30/17 06:50 Lipase 7 U/L (11-82) L 01/30/17 06:50 Vitamin B12 703 pg/mL (211-946) 01/30/17 06:50 Folic Acid >20.0 ng/mL (>3.0) 01/30/17 06:50 TSH 0.48 uIU/ml (0.34-5.60) 01/29/17 07:02 Urine Source RANDOM 01/28/17 14:00 Urine Color YELLOW 01/28/17 14:00 Urine Clarity CLOUDY (CLEAR) H 01/28/17 14:00 Urine pH 5.5 01/28/17 14:00 Ur Specific [place] (1.005-1.030) 01/28/17 14:00 Urine Protein 100 mg/dL (NEGATIVE) H 01/28/17 14:00 Urine Glucose (UA) NEGATIVE mg/dL (NEGATIVE) 01/28/17 14:00 Urine Ketones 15 mg/dL (NEGATIVE) H 01/28/17 14:00 Urine Blood MODERATE (NEGATIVE) H 01/28/17 14:00 Urine Nitrate POSITIVE (NEGATIVE) H 01/28/17 14:00 Urine Bilirubin SMALL (NEGATIVE) H 01/28/17 14:00 Urine Urobilinogen 0.2 E.U./dL (0.2 - 1.0) 01/28/17 14:00 Ur Leukocyte Esterase LARGE (NEGATIVE) H 01/28/17 14:00 Urine RBC 5-10 /hpf (0-5) H 01/28/17 14:00 Urine WBC >100 /hpf (0-5) H 01/28/17 14:00 Ur Epithelial Cells FEW /lpf (FEW) 01/28/17 14:00 Urine Bacteria MANY /hpf (NONE SEEN) 01/28/17 14:00 Stool Leukocyte FEW WBC SEEN 01/30/17 18:30 Hepatitis C Antibody <0.1 s/co ratio (0.0-0.9) 01/30/17 06:50 - Physical Exam Vitals and I&O: Vital Signs Temp 97.6 F 01/31/17 15:55 Pulse 76 01/31/17 15:55 Resp 18 01/31/17 16:00 BP 112/67 01/31/17 15:55 Pulse Ox 96 01/31/17 15:55 Intake & Output 01/31/17 01/31/17 02/01/17 06:59 18:59 06:59 Intake Total 200 50 Output Total 3 Balance 197 50 Intake: Intake, IV Amount 50 Levofloxacin 250mg/50mL 50 250 mg In 50 ml @ 50 mls/ hr IV Q24HR [facility] Rx#: [id number] Oral 200 Output: Stool 3 Other: # Voids 3 Stool Characteristics Soft Soft Active Medications: Current Medications Acetaminophen (Tylenol) 650 mg PO Q4H PRN PRN Reason: fever >100 Stop: 03/29/17 20:41 Last Admin: 01/29/17 21:37 Dose: 650 mg Acetaminophen/Hydrocodone Bitart ([place] 5mg/325mg) 1 tab PO Q6H PRN PRN Reason: Moderate Pain Stop: 03/29/17 15:51 Cholestyramine Resin (Questran) 4 gm PO BID [facility] Stop: 04/01/17 16:59 Last Admin: 01/31/17 17:11 Dose: 4 gm Levofloxacin (Levaquin Pb) 250 mg in 50 mls @ 50 mls/hr IV Q24HR [facility] Stop: 03/30/17 14:59 Last Infusion: 01/31/17 16:15 Dose: Infused Potassium Chloride/Dextrose/Sod Cl (D5-0.9ns W/Kcl 20meq) 1,000 mls @ 100 mls/ hr IV .Q10H [facility] Stop: 04/01/17 18:00 Ceftriaxone Sodium 1 gm/ (Sodium Chloride) 50 mls @ 100 mls/hr IV Q24HR [facility] Stop: 04/01/17 18:00 Levothyroxine Sodium (Synthroid) 0.112 mg PO QDAC [facility] Stop: 03/30/17 07:29 Last Admin: 01/31/17 06:45 Dose: 0.112 mg Lisinopril (Zestril) 5 mg PO DAILY [facility] Stop: 03/30/17 08:59 Last Admin: 01/31/17 09:20 Dose: 5 mg Magnesium Oxide (Mag-Oxide) 400 mg PO BID [facility] Stop: 03/29/17 16:59 Last Admin: 01/31/17 17:11 Dose: 400 mg Metronidazole (Flagyl) 500 mg PO TID [facility] Stop: 02/07/17 13:59 Last Admin: 01/31/17 13:29 Dose: 500 mg Ondansetron HCl (Zofran) 4 mg IV Q4H PRN PRN Reason: Nausea Stop: 03/29/17 15:59 Pantoprazole Sodium (Protonix) 40 mg PO DAILY [facility] Stop: 03/30/17 08:59 Last Admin: 01/31/17 09:25 Dose: 40 mg Potassium Chloride (Klor-Con) 20 meq PO DAILY [facility] Stop: 03/31/17 08:59 Last Admin: 01/31/17 09:25 Dose: 20 meq General: Alert, Cooperative, No acute distress Cardiovascular: Regular rate Lungs: Clear to auscultation Abdomen: Soft, no Tender Assessment/Plan - Problem List Patient Problems: All Active Problems N/V/D WITH WEAKNESS AND FEVER (Acute) HYPOTENSIVE EPISODE AT HOME (Acute) - Assessment Assessment: Sepsis UTI 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 etiology Weakness - Plan Plan: Patient improving Continue Levaquin and Flagyl per ID recomendations Stool for C diff cancelled by lab Monitor platelet Family requested 2nd opinion for hematology/oncology re: pt's low platelet and prior high WBC. Dr Bull consulted Family was updated on pt's condition and plan of care Plan of care discussed with nursing staff Nutritional Asmnt/Malnutr-PDOC - Dietary Evaluation Malnutrition Findings (Please click <Entered> for more info): Nutritional Asmnt/Malnutrition Start: 01/30/17 14: 22 Text: Status: Complete Freq: Document 01/30/17 14:22 GSUN (Rec: 01/30/17 14:38 [email or web address] [email or web address]) Nutritional Asmnt/Malnutrition Patient General Information Nutritional Screening High Risk Screening Diagnosis Sepsis Pertinent Medical Hx/Surgical Hx HTN, anemia of chronic disease , hypothyroidism, hypomagnesemia, DJD Subjective Information 71 year old female from home. Pt was pleasant and alert during visit, family at bedside. Observed lunch tray half finished, pt denied difficulties chewing/ swallowing, fair appetite, food here is acceptable. Pt deneid GI problems at this time. Pt stated usual diet no salt due to HTN and would like to receive Mrs. Lam in place . 118lb 4mos ago at doctor's office, denied recent weight changes, CBW 122lb via bedscale. Avg PO intake 75% past 2 days. Pt appeared age appropriate. Current Diet Order/ Nutrition Support [id number], [facility] soft chopped Pertinent Medications Synthroid, Mag-Oxide, Zofran, Protonix Pertinent Labs 01/30: glucose 89. Nutritional Hx/Data Height 1.5 m Height (Calculated Centimeters) 149.9 Current Weight (lbs) 55.338 kg Weight (Calculated Kilograms) 55.3 Weight (Calculated Grams) 07427.3 Usual body Weight (lbs) 118 [place] Body Weight 97.5lb Recent Weight Change No Weight Status Approriate GI Symptoms Skin Integrity/Comment: Kris 15. Skin intact. Current %PO Fair (50-74%) Estimated Nutritional Goals BEE in Kcals: Using Current wt Calories/Kcals/Kg CBW 122lb/55.3kg Kcals Calculated 1659-1936kcal (30-35kcal/kg) Protein: Using Current wt Protein Calculated 77-88g (1.4-1.6g/kg) Fluid: ml 1659-1936ml (1ml/kcal) Nutritional Problem 1. Problem Problem Increased kcal and prot needs related to Etiology hypermetabolic state aeb Signs/Symptoms: sepsis Intervention/Recommendation Comments 1. Recommend liberalizing diet to regular chopped. No hx of DM noted in H&P. Glucose 114H on adm, WNL since then. 2. Recommend CHERELLE diet, hx HTN. Pt follows a low sodium/CHERELLE diet at home, requested for Mrs. Lam. Expected Outcomes/Goals Expected Outcomes/Goals 1. PO intake to meet 100% of estimated nutritional needs.
[2017-01-31] MEDS: D5-0.9NS w/KCL 20mEq 1,000 ML IV SCH (21:55)
[2017-02-01 00:15] LABS: INR 1.05 (0.5-1.4); PROTHROMBIN TIME (TEST) 10.9 SECONDS (9.5-11.5)
[2017-02-01 05:58] LABS: HEMATOCRIT 34.1 % (37.0-47.0); RETICULOCYTES % COUNTED 0.5 % (0.5-1.5)
[2017-02-01 06:38] LABS: HEMATOCRIT 32.6 % (35.0-45.0); HEMOGLOBIN 11.2 gm/dL (11.7-16.1); MEAN CELL VOLUME 84.9 fl (81-100); MEAN CORPUSCULAR HEMOGLOBIN 29.3 pg (27.0-31.0); MEAN CORPUSCULAR HGB CONC 34.5 pg (28.0-36.0); MEAN PLATELET VOLUME 9.8 fl; PLATELET COUNT 56 Th/cmm (150-400); RED BLOOD COUNT 3.84 Mil/cmm (3.80-5.20); RED CELL DISTRIBUTION WIDTH 14.2 % (11.5-20.0); WHITE BLOOD COUNT 9.2 Th/cmm (4.8-10.8)
[2017-02-01] MEDS: Levothyroxine 0.112 Mg Tab PO SCH (07:34)
[2017-02-01] MEDS: Pantoprazole 40 mg EC Tab PO SCH (09:11)
[2017-02-01] MEDS: Potassium Chloride 20 mEq ER Tab PO SCH (09:11)
[2017-02-01 09:20] LABS: BAND NEUTROPHILE 3 % (0-10); NEUTROPHILS 71 % (40-80); TOTAL CELLS COUNTED 100
[2017-02-01 09:21] LABS: PLATELET ESTIMATE DECREASED PLATELETS (NORMAL); PLATELET MORPHOLOGY GIANT PLATELETS SEEN (NORMAL)
[2017-02-01] MEDS: D5-0.9NS w/KCL 20mEq 1,000 ML IV SCH (11:12)
[2017-02-01] MEDS: Levofloxacin 250 mg/50 mL Premix Bag IV SCH (14:10)
--- NOTE | 2017-02-01 19:29 | General Progress Note ---
Subjective - Review of Systems Service Date: 02/01/17 Subjective: Patient seen and examined Family was at the bedside Patient denied any complaints afebrile Objective - Results Result Diagrams: 02/01/17 06:19 01/30/17 06:50 Recent Labs: Laboratory Last Values WBC 9.2 Th/cmm (4.8-10.8) 02/01/17 06:19 RBC 3.84 Mil/cmm (3.80-5.20) 02/01/17 06:19 Hgb 11.2 gm/dL (11.7-16.1) L 02/01/17 06:19 Hct 32.6 % (35.0-45.0) L 02/01/17 06:19 MCV 84.9 fl (81-100) 02/01/17 06:19 MCH 29.3 pg (27.0-31.0) 02/01/17 06:19 MCHC Differential 34.5 pg (28.0-36.0) 02/01/17 06:19 RDW 14.2 % (11.5-20.0) 02/01/17 06:19 Plt Count 56 Th/cmm (150-400) L 02/01/17 06:19 MPV 9.8 fl 02/01/17 06:19 Band Neutrophils % 3 % (0-10) 02/01/17 06:19 Neutrophils (Manual) 71 % (40-80) 02/01/17 06:19 Lymphocytes 10 % (20-50) L 02/01/17 06:19 Monocytes 15 % (2-10) H 02/01/17 06:19 Atypical Lymphocytes 1 % 02/01/17 06:19 Platelet Estimate DECREASED PLATELETS (NORMAL) 02/01/17 06:19 Platelet Morphology GIANT PLATELETS SEEN (NORMAL) 02/01/17 06:19 RBC Morph Micro Appear NORMAL (NORMAL) 02/01/17 06:19 Total Retics Counted 0.5 % (0.5-1.5) 01/31/17 23:42 Absolute Retic 20.0 Th/cmm 01/31/17 23:42 Corrected Retic Count 0.4 % (0.5-1.5) L 01/31/17 23:42 PT 10.9 SECONDS (9.5-11.5) 01/31/17 23:42 INR 1.05 (0.5-1.4) 01/31/17 23:42 PTT (Actin FS) 31.6 SECONDS (26.0-38.0) 01/31/17 23:42 Sodium 136 mEq/L (136-145) 01/30/17 06:50 Potassium 3.4 mEq/L (3.5-5.1) L 01/30/17 06:50 Chloride 110 mEq/L (98-107) H 01/30/17 06:50 Carbon Dioxide 17.9 mEq/L (21.0-31.0) L 01/30/17 06:50 Anion Gap 11.5 (7.0-16.0) 01/30/17 06:50 BUN 25 mg/dL (7-25) 01/30/17 06:50 Creatinine 0.9 mg/dL (0.6-1.2) 01/30/17 06:50 Est GFR ( Amer) TNP 01/30/17 06:50 Est GFR (Non-Af Amer) TNP 01/30/17 06:50 BUN/Creatinine Ratio 27.8 01/30/17 06:50 Glucose 89 mg/dL (70-105) 01/30/17 06:50 Whole Bld Lactic Acid 1.43 mmol/L (0.60-1.99) 01/28/17 13:16 Uric Acid 8.2 mg/dL (2.3-6.6) H 01/30/17 06:50 Calcium 8.8 mg/dL (8.6-10.3) 01/30/17 06:50 Magnesium 1.7 mg/dL (1.9-2.7) L 01/29/17 07:02 Total Bilirubin 0.3 mg/dL (0.3-1.0) 01/30/17 06:50 AST 13 U/L (13-39) 01/30/17 06:50 ALT 11 U/L (7-52) 01/30/17 06:50 Alkaline Phosphatase 104 U/L (34-104) 01/30/17 06:50 Ammonia 44 umol/L (16-53) 01/30/17 06:50 Total Protein 7.4 gm/dL (6.0-8.3) 01/30/17 06:50 Albumin 3.0 gm/dL (3.7-5.3) L 01/30/17 06:50 Globulin 4.4 gm/dL 01/30/17 06:50 Albumin/Globulin Ratio 0.7 (1.0-1.8) L 01/30/17 06:50 Triglycerides 161 mg/dL (<150) H 01/30/17 06:50 Cholesterol 63 mg/dL (<200) 01/30/17 06:50 LDL Cholesterol Direct 25 mg/dL (75-193) L 01/30/17 06:50 HDL Cholesterol 9 mg/dL (23-92) L 01/30/17 06:50 Amylase 19 U/L (29-103) L 01/30/17 06:50 Lipase 7 U/L (11-82) L 01/30/17 06:50 Vitamin B12 703 pg/mL (211-946) 01/30/17 06:50 Folic Acid >20.0 ng/mL (>3.0) 01/30/17 06:50 TSH 0.48 uIU/ml (0.34-5.60) 01/29/17 07:02 Urine Source RANDOM 01/28/17 14:00 Urine Color YELLOW 01/28/17 14:00 Urine Clarity CLOUDY (CLEAR) H 01/28/17 14:00 Urine pH 5.5 01/28/17 14:00 Ur Specific [place] (1.005-1.030) 01/28/17 14:00 Urine Protein 100 mg/dL (NEGATIVE) H 01/28/17 14:00 Urine Glucose (UA) NEGATIVE mg/dL (NEGATIVE) 01/28/17 14:00 Urine Ketones 15 mg/dL (NEGATIVE) H 01/28/17 14:00 Urine Blood MODERATE (NEGATIVE) H 01/28/17 14:00 Urine Nitrate POSITIVE (NEGATIVE) H 01/28/17 14:00 Urine Bilirubin SMALL (NEGATIVE) H 01/28/17 14:00 Urine Urobilinogen 0.2 E.U./dL (0.2 - 1.0) 01/28/17 14:00 Ur Leukocyte Esterase LARGE (NEGATIVE) H 01/28/17 14:00 Urine RBC 5-10 /hpf (0-5) H 01/28/17 14:00 Urine WBC >100 /hpf (0-5) H 01/28/17 14:00 Ur Epithelial Cells FEW /lpf (FEW) 01/28/17 14:00 Urine Bacteria MANY /hpf (NONE SEEN) 01/28/17 14:00 Stool Leukocyte FEW WBC SEEN 01/30/17 18:30 Hepatitis C Antibody <0.1 s/co ratio (0.0-0.9) 01/30/17 06:50 - Physical Exam Vitals and I&O: Vital Signs Temp 98.4 F 02/01/17 16:00 Pulse 87 02/01/17 16:00 Resp 20 02/01/17 16:00 BP 147/77 02/01/17 16:00 Pulse Ox 95 02/01/17 16:00 Intake & Output 02/01/17 02/01/17 02/02/17 06:59 18:59 06:59 Intake Total 200 2250 Balance 200 2250 Intake: Intake, IV Amount 1000 D5-0.9NS w/KCL 20mEq 1, 1000 000 ml @ 100 mls/hr IV . 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 etiology Weakness - Plan Plan: Patient improving Case discussed with Dr uBll ( Hematology ) who cleared patient for discharge with outpatient BM biopsy for further evalution of thrombocytopenia. Family is aware. ID cleared patient for home discharge with oral antibiotics DC home today DC plan discussed with patient and daughter Scripts given for levaquin and CBC in one week Nutritional Asmnt/Malnutr-PDOC - Dietary Evaluation Malnutrition Findings (Please click <Entered> for more info): Nutritional Asmnt/Malnutrition Start: 01/30/17 14: 22 Text: Status: Complete Freq: Document 01/30/17 14:22 GSUN (Rec: 01/30/17 14:38 GSUN [email or web address]) Nutritional Asmnt/Malnutrition Patient General Information Nutritional Screening High Risk Screening Diagnosis Sepsis Pertinent Medical Hx/Surgical Hx HTN, anemia of chronic disease , hypothyroidism, hypomagnesemia, DJD Subjective Information 71 year old female from home. Pt was pleasant and alert during visit, family at bedside. Observed lunch tray half finished, pt denied difficulties chewing/ swallowing, fair appetite, food here is acceptable. Pt deneid GI problems at this time. Pt stated usual diet no salt due to HTN and would like to receive Mrs. Lam in place . 118lb 4mos ago at doctor's office, denied recent weight changes, CBW 122lb via bedscale. Avg PO intake 75% past 2 days. Pt appeared age appropriate. Current Diet Order/ Nutrition Support [id number], mech soft chopped Pertinent Medications Synthroid, Mag-Oxide, Zofran, Protonix Pertinent Labs 01/30: glucose 89. Nutritional Hx/Data Height 1.5 m Height (Calculated Centimeters) 149.9 Current Weight (lbs) 55.338 kg Weight (Calculated Kilograms) 55.3 Weight (Calculated Grams) 25336.3 Usual body Weight (lbs) 118 Colbert Body Weight 97.5lb Recent Weight Change No Weight Status Approriate GI Symptoms Skin Integrity/Comment: Kris 15. Skin intact. Current %PO Fair (50-74%) Estimated Nutritional Goals BEE in Kcals: Using Current wt Calories/Kcals/Kg CBW 122lb/55.3kg Kcals Calculated 1659-1936kcal (30-35kcal/kg) Protein: Using Current wt Protein Calculated 77-88g (1.4-1.6g/kg) Fluid: ml 1659-1936ml (1ml/kcal) Nutritional Problem 1. Problem Problem Increased kcal and prot needs related to Etiology hypermetabolic state aeb Signs/Symptoms: sepsis Intervention/Recommendation Comments 1. Recommend liberalizing diet to regular chopped. No hx of DM noted in H&P. Glucose 114H on adm, WNL since then. 2. Recommend CHERELLE diet, hx HTN. Pt follows a low sodium/CHERELLE diet at home, requested for Mrs. Lam. Expected Outcomes/Goals Expected Outcomes/Goals 1. PO intake to meet 100% of estimated nutritional needs.
--- NOTE | 2017-02-24 20:21 | Discharge Summary ---
DATE OF DISCHARGE: 02/01/2017 FINAL DIAGNOSES: 1. Sepsis, improved. 2. Complicated urinary tract infection. 3. Old cerebrovascular accident with late effect. 4. Hypertension, stable. 5. Hypothyroidism. 6. Chronic thrombocytopenia, unclear etiology. 7. Generalized weakness. HOSPITAL COURSE: This is a 71-year-old female who was admitted for evaluation of the high-grade fever, chills, and weakness, diagnosed with the sepsis. Urine culture came back positive for Klebsiella pneumoniae. The patient was treated with appropriate antibiotic. ID also followed the patient. The patient was seen by two different hematologists per family. They requested for underlying chronic thrombocytopenia and also leukocytosis. The patient's WBC was subsequently improved and became normal. The patient still has remained thrombocytopenia. Dr. Bull, Hematology, recommended outpatient followup and workup. The patient did not have any active evidence of any bleeding. The patient's throughout platelets remained stable. The patient's underlying problems were addressed and treated. The patient's urine culture was pansensitive. ID cleared the patient for discharge with the oral antibiotic. Overall, was uneventful. Similar treatment was given. DISCHARGE CONDITION: Stable. DISCHARGE MEDICATIONS: Please see medication reconciliation list. DISCHARGE INSTRUCTION: The patient will be followed by the patient's primary MD outpatient, oral antibiotic prescriptions given, follow with Hematology/Oncology as an outpatient advised. JOB# [id number]
== END 2017-02-01 16:30 | disposition home or self-care (01) | DRG 872 ==
LOC: ER 12:41 → TELE 15:20
PROVIDERS: ADMIT Family Medicine; ATTEND Family Medicine
DX: A41.9 Sepsis, unspecified organism (principal); D69.6 Thrombocytopenia, unspecified; N39.0 Urinary tract infection, site not specified; N12 Tubulo-interstitial nephritis, not specified as acute or chronic; D63.8 Anemia in other chronic diseases classified elsewhere; I69.30 Unspecified sequelae of cerebral infarction; I10 Essential (primary) hypertension; E03.9 Hypothyroidism, unspecified; D50.9 Iron deficiency anemia, unspecified; E87.6 Hypokalemia; E83.42 Hypomagnesemia; M19.90 Unspecified osteoarthritis, unspecified site; E78.5 Hyperlipidemia, unspecified; K52.9 Noninfective gastroenteritis and colitis, unspecified; Z83.3 Family history of diabetes mellitus
CPT/HCPCS: 36415-UA; 71010-TC; 80053-TC; 80061-TC; 81001-TC; 81270-90; 82140-TC; 82150-TC; 82378-90; 82607-90; 82728-90; 82746-90; 83605; 83690-TC; 83735-TC; 84443-TC; 84550-TC; 85007-TC; 85027-TC; 85044-TC; 85610-TC; 85730-TC; 86803-90; 87086-90; 89055-TC; 93005; 96375; J0696; J1956; J2405; J3475; J7030; J7040; Z7610